=== PATIENT | female | born 1935 | race Caucasian/White ===

== ENCOUNTER 2019-08-01 15:19 | Inpatient (IN) | payer MEDICARE, OTHER ==
[2019-08-01] MEDS ORDERED: SODIUM CHLORIDE 0.9% 1,000 ML IV STA (15:37)
[2019-08-01] MEDS ORDERED: IPRATROPIUM-ALBUTEROL 3 ML NEB INHALATION STA (15:37)
[2019-08-01] MEDS ORDERED: methylPREDNISolone SOD SUCCI 125 MG/2 ML VIAL IV STA (15:37)
[2019-08-01] MEDS ORDERED: LEVOFLOXACIN 750MG-D5W PMX 750 MG in DEXTROSE/WATER 1 150ML.BAG IVPB STA ×2 (15:39→16:53)
--- NOTE | 2019-08-01 15:41 | ED ---
SOB HPI - General Chief Complaint: Shortness of Breath Stated Complaint: MICHAEL Time Seen by Provider: 08/01/19 15:19 Source: EMS, RN notes reviewed, old records reviewed Mode of arrival: EMS Limitations: no limitations - History of Present Illness Initial Comments: Is a 9-year-old female who presents from a detention with complaints of shortness of breath hypoxemia and fever. Is unknown how long this is been going on she was found by EMS to be hypoxemic lying in bed in the detention that she presented from. No other history is available at this time. Patient herself is a poor historian MD Complaint: shortness of breath, cough - Related Data Allergies Allergy/AdvReac Type Severity Reaction Status Date / Time amoxicillin Allergy Unknown Verified 08/01/19 15:28 niacin Allergy Unknown Verified 08/01/19 15:28 [From Niaspan Extended-Release] Penicillins Allergy Unknown Verified 08/01/19 15:28 Review of Systems ROS Statement: Those systems with pertinent positive or pertinent negative responses have been documented in the HPI. ROS Other: All systems not noted in ROS Statement are negative. Limitations: ROS unobtainable due to patients medical condition Past Medical History Past Medical History: COPD, Diabetes Mellitus, GERD/Reflux, Hyperlipidemia Additional Past Medical History / Comment(s): adult failure to thrive, dry eye History of Any Multi-Drug Resistant Organisms: None Reported Past Surgical History: No Surgical Hx Reported Past Psychological History: Anxiety, Depression Smoking Status: Former smoker Past Alcohol Use History: None Reported Past Drug Use History: None Reported General Exam - General Exam Comments Initial Comments: This is a well-developed well-nourished awake lethargic female Limitations: no limitations General appearance: alert, lethargic Head exam: Present: atraumatic, normocephalic, normal inspection Eye exam: Present: normal appearance, PERRL, EOMI. Absent: scleral icterus, conjunctival injection, periorbital swelling ENT exam: Present: mucous membranes dry Neck exam: Present: normal inspection, full ROM, other (No stridor JVD or bruits). Absent: tenderness, meningismus, lymphadenopathy Respiratory exam: Present: rhonchi (Right lower lobe rhonchi), decreased breath sounds. Absent: respiratory distress, wheezes, rales, stridor Cardiovascular Exam: Present: regular rate, normal rhythm, normal heart sounds. Absent: systolic murmur, diastolic murmur, rubs, gallop, clicks GI/Abdominal exam: Present: soft, normal bowel sounds. Absent: distended, tenderness, guarding, rebound, rigid Extremities exam: Present: normal inspection, full ROM, normal capillary refill. Absent: tenderness, pedal edema, joint swelling, calf tenderness Back exam: Present: normal inspection Neurological exam: Present: alert, oriented X3, CN II-XII intact Psychiatric exam: Present: normal affect, normal mood Skin exam: Present: warm, dry, intact, normal color. Absent: rash Course Vital Signs 08/01/19 08/01/19 08/01/19 15:22 15:27 16:02 Temperature 101.8 F H Pulse Rate 81 90 Respiratory 22 22 Rate Blood Pressure 126/98 O2 Sat by Pulse 99 Oximetry 08/01/19 08/01/19 16:11 16:26 Temperature 100.8 F H Pulse Rate 84 88 Respiratory 22 Rate Blood Pressure 130/70 O2 Sat by Pulse 92 L Oximetry Medical Decision Making - Medical Decision Making Patient does demonstrate clinical and subjective evidence of pneumonia. Patient will be admitted case was discussed with Dr. Chambers - Lab Data Result diagrams: 08/01/19 15:35 Lab Results 08/01/19 08/01/19 08/01/19 Range/Units 15:35 15:35 15:35 Sodium 133 L (137-145) mmol/L Potassium 4.8 (3.5-5.1) mmol/L Chloride 100 (98-107) mmol/L Carbon Dioxide 23 (22-30) mmol/L Anion Gap 10 mmol/L BUN 25 H (7-17) mg/dL Creatinine 0.46 L (0.52-1.04) mg/dL Est GFR (CKD-EPI)AfAm >90 (>60 ml/min/1.73 sqM) Est GFR (CKD-EPI)NonAf >90 (>60 ml/min/1.73 sqM) Glucose 116 H (74-99) mg/dL Plasma Lactic Acid Gurpreet 1.5 (0.7-2.0) mmol/L Calcium 9.1 (8.4-10.2) mg/dL Magnesium 1.9 (1.6-2.3) mg/dL Total Bilirubin 0.8 (0.2-1.3) mg/dL AST 35 (14-36) U/L ALT 17 (9-52) U/L Alkaline Phosphatase 85 (38-126) U/L Creatine Kinase 41 (30-135) U/L Troponin I (0.000-0.034) ng/mL NT-Pro-B Natriuret Pep 503 pg/mL Total Protein 6.6 (6.3-8.2) g/dL Albumin 3.8 (3.5-5.0) g/dL 08/01/19 Range/Units 15:35 Sodium (137-145) mmol/L Potassium (3.5-5.1) mmol/L Chloride (98-107) mmol/L Carbon Dioxide (22-30) mmol/L Anion Gap mmol/L BUN (7-17) mg/dL Creatinine (0.52-1.04) mg/dL Est GFR (CKD-EPI)AfAm (>60 ml/min/1.73 sqM) Est GFR (CKD-EPI)NonAf (>60 ml/min/1.73 sqM) Glucose (74-99) mg/dL Plasma Lactic Acid Gurpreet (0.7-2.0) mmol/L Calcium (8.4-10.2) mg/dL Magnesium (1.6-2.3) mg/dL Total Bilirubin (0.2-1.3) mg/dL AST (14-36) U/L ALT (9-52) U/L Alkaline Phosphatase (38-126) U/L Creatine Kinase (30-135) U/L Troponin I <0.012 (0.000-0.034) ng/mL NT-Pro-B Natriuret Pep pg/mL Total Protein (6.3-8.2) g/dL Albumin (3.5-5.0) g/dL - EKG Data -: EKG Interpreted by Co EKG shows normal: sinus rhythm (Sinus rhythm of 83 SD interval 162 QRS duration 68 QT since QTC 376/[address] T-wave configuration) - Radiology Data Radiology results: report reviewed (The patient x-rays were reviewed as well as reports right lower lobe infiltrate is noted.), image reviewed Disposition Clinical Impression: Right lower lobe pneumonia, Acute exacerbation of chronic obstructive pulmonary disease, Febrile illness, acute, Dehydration, Hypoxemia Disposition: ADMITTED IP TO THIS [facility] Condition: Serious Referrals: Gregorio Bhatia DO [Primary Care Provider] - 1-2 days
[2019-08-01 16:09] LABS: ALT 17 U/L (9-52); AST 35 U/L (14-36); African American GFR (CKD) >90 (>60 ml/min/1.73 sqM); Albumin 3.8 g/dL (3.5-5.0); Alkaline Phosphatase 85 U/L (38-126); Anion Gap 10 mmol/L; Blood Urea Nitrogen 25 mg/dL (7-17); Calcium 9.1 mg/dL (8.4-10.2); Carbon Dioxide 23 mmol/L (22-30); Chloride 100 mmol/L (98-107); Creatine Kinase 41 U/L (30-135); Glucose 116 mg/dL (74-99); Magnesium 1.9 mg/dL (1.6-2.3); Potassium 4.8 mmol/L (3.5-5.1); Sodium 133 mmol/L (137-145); Total Bilirubin 0.8 mg/dL (0.2-1.3); Total Protein 6.6 g/dL (6.3-8.2)
[2019-08-01] MEDS ORDERED: SODIUM CHLORIDE 0.9% 500 ML 500 ML IV STA (16:20)
--- NOTE | 2019-08-01 16:41 | XR ---
EXAMINATION TYPE: XR chest 2V DATE OF EXAM: 08/01/2019 COMPARISON: NONE HISTORY: Difficulty breathing TECHNIQUE: Frontal and lateral views of the chest are obtained. FINDINGS: There is a irregular shaped area of airspace consolidation in the superior segment right l ower lobe. There is also a mild infiltrate in the lateral and anterior aspect of the right upper lobe . There is no heart failure. There is no pleural effusion. There are no hilar masses. There are calci fied granulomata at the pulmonary amanda. There are chest leads. There is no definite pleural effusion. IMPRESSION: There is right side pneumonia. No heart failure seen.
[2019-08-01] MEDS ORDERED: PNEUMONIA PROTOCOL UTILIZED 1 EACH MISC PO PRN (16:53)
[2019-08-01 16:55] LABS: Anisocytosis Slight; Basophils # (A) 0.1 k/uL (0-0.2); Basophils % (A) 0 %; Eosinophils # (A) 0.2 k/uL (0-0.7); Eosinophils % (A) 2 %; HCT 36.3 % (34.0-46.0); HGB 11.8 gm/dL (11.4-16.0); Lymphocytes # (A) 2.2 k/uL (1.0-4.8); Lymphocytes % (A) 15 %; MCH 29.5 pg (25.0-35.0); MCHC 32.4 g/dL (31.0-37.0); Mean Platelet Volume 7.6; Monocytes # (A) 0.6 k/uL (0-1.0); Monocytes % (A) 4 %; Neutrophils # (A) 10.9 k/uL (1.3-7.7); Neutrophils % (A) 77 %; Platelet Count 258 k/uL (150-450); RDW 16.2 % (11.5-15.5); WBC 14.2 k/uL (3.8-10.6)
[2019-08-01 17:00] LABS: INR 0.9 (<1.2); Partial Thromboplastin Time 26.6 sec (22.0-30.0)
[2019-08-01] MEDS: SODIUM CHLORIDE 0.9% 1,000 ML IV SCH (18:35)
[2019-08-01] MEDS: INSULIN ASPART (NovoLOG) 100 UNIT/ML VIAL SQ SCH ×2 (18:35→20:53)
[2019-08-01 20:43] LABS: Glucose,Whole Blood 178 mg/dL (75-99)
[2019-08-01] MEDS: IPRATROPIUM-ALBUTEROL 3 ML NEB INHALATION SCH ×2 (21:25→23:56)
[2019-08-01] MEDS ORDERED: LOPERAMIDE 2 MG CAP PO PRN (23:40)
--- NOTE | 2019-08-01 23:54 | P.HPIM ---
History of Present Illness H&P Date: 08/01/19 Chief Complaint: Fever Patient is a 83-year-old female with a known history of with a known history of dementia, adult failure to thrive, diabetes type 2 [id number], hyperlipidemia, COPD, anxiety/depression and previous history of smoking was brought to the hospital from extended care facility with complaints of shortness of breath, fever and tachycardia and hypoxia. . Patient does have underlying dementia and could not provide any history at this time. Patient was found by EMS lying in bed at assisted. No cough or sputum production. Denied any abdominal pain. No nausea no vomiting. Patient does have chronic diarrhea otherwise. As per assisted records patient was admitted to the [facility] in November 2018 with sepsis secondary to UTI and pneumonia left side. T-max 101.8. patient was on 100% nontender with her on admission. EKG showed sinus rhythm with PACs. Chest x-ray showed right-sided pneumonia. No heart failure does seem. Review of Systems Review of systems could not be obtained from the patient. Past Medical History Past Medical History: COPD, Diabetes Mellitus, GERD/Reflux, Hyperlipidemia Additional Past Medical History / Comment(s): adult failure to thrive, dry eye History of Any Multi-Drug Resistant Organisms: None Reported Past Surgical History: No Surgical Hx Reported Past Anesthesia/Blood Transfusion Reactions: No Reported Reaction Past Psychological History: Anxiety, Depression Smoking Status: Former smoker Past Alcohol Use History: None Reported Past Drug Use History: None Reported - Past Family History Mother History Unknown: Yes Father History Unknown: Yes Medications and Allergies Home Medications Medication Instructions Recorded Confirmed Type Alendronate Sodium [Fosamax] 70 mg PO TU 08/01/19 08/01/19 History Aspirin EC [Ecotrin Low Dose] 81 mg PO DAILY 08/01/19 08/01/19 History Azelastine HCl [Optivar 0.05% 1 drop BOTH EYES BID 08/01/19 08/01/19 History Ophth Soln] Calcium Carbonate/Vitamin D3 1 tab PO HS 08/01/19 08/01/19 History [Calcium 600-Vit D3 200 Tablet] DULoxetine HCL [Cymbalta] 60 mg PO DAILY 08/01/19 08/01/19 History Gabapentin [Neurontin] 100 mg PO BID 08/01/19 08/01/19 History Gabapentin [Neurontin] 600 mg PO BID 08/01/19 08/01/19 History HYDROcodone/APAP 5-325MG [[place] 1 tab PO Q8H PRN 08/01/19 08/01/19 History 5-325] Linagliptin/Metformin HCl 1 tab PO BID 08/01/19 08/01/19 History [Jentadueto 2.5 mg-1000 mg Tab] Loperamide [Imodium] 8 mg PO DAILY 08/01/19 08/01/19 History Magnesium Oxide [Mag-Ox] 400 mg PO BID 08/01/19 08/01/19 History Metoprolol Succinate [Toprol XL] 25 mg PO HS 08/01/19 08/01/19 History Omeprazole 20 mg PO DAILY 08/01/19 08/01/19 History PARoxetine HCL [Paxil] 40 mg PO DAILY 08/01/19 08/01/19 History Pravastatin Sodium [Pravachol] 40 mg PO HS 08/01/19 08/01/19 History Primidone [Mysoline] 100 mg PO HS 08/01/19 08/01/19 History Tiotropium [place] [Spiriva] 1 cap INHALATION RT-HS 08/01/19 08/01/19 History guaiFENesin [Mucinex] 600 mg PO Q12H 08/01/19 08/01/19 History Allergies Allergy/AdvReac Type Severity Reaction Status Date / Time amoxicillin Allergy Unknown Verified 08/01/19 17:00 niacin Allergy Unknown Verified 08/01/19 17:00 [From Niaspan Extended-Release] Penicillins Allergy Unknown Verified 08/01/19 17:00 Physical Exam Vitals: Vital Signs Temp Pulse Pulse Resp BP BP Pulse Ox 08/01/19 21:22 91 L 08/01/19 18:35 99.3 F 90 18 114/69 90 L 08/01/19 17:55 99.1 F 88 22 123/78 91 L 08/01/19 16:26 100.8 F H 88 22 130/70 92 L 08/01/19 16:11 84 08/01/19 16:02 90 08/01/19 15:27 22 08/01/19 15:22 101.8 F H 81 22 126/98 99 Intake and Output 08/01/19 08/01/19 08/01/19 06:59 14:59 22:59 Other: Voiding Method Incontinent Weight 54.431 kg PHYSICAL EXAMINATION: Patient is lying in the bed comfortably, no acute distress, awake alert but not oriented HEENT: Normocephalic. Neck is supple. Pupils reactive. Nostrils clear. Oral cavity is moist. Ears reveal no drainage. Neck reveals no JVD, carotid bruits, or thyromegaly. CHEST EXAMINATION: Trachea is central. Symmetrical expansion. Right basilar crackles/rhonchi and diminished air entry throughout. CARDIAC: Normal S1, S2 with no gallops. No murmurs ABDOMEN: Soft. Bowel sounds normal. No organomegaly. No abdominal bruits. Extremities: reveal no edema. No clubbing or cyanosis Neurologically awake, alert but not oriented. with well-coordinated movements. No focal deficits noted Skin: No rash or skin lesions. Psychiatric: Coperative. Not be assessed completely Musculoskeletal: No joint swelling or deformity. Normal range of motion. Results CBC & Chem 7: 08/01/19 16:40 08/01/19 15:35 Labs: Abnormal Lab Results - Last 24 Hours (Table) 08/01/19 08/01/19 08/01/19 Range/Units 15:35 16:40 20:30 WBC 14.2 H (3.8-10.6) k/uL RDW 16.2 H (11.5-15.5) % Neutrophils # 10.9 H (1.3-7.7) k/uL Sodium 133 L (137-145) mmol/L BUN 25 H (7-17) mg/dL Creatinine 0.46 L (0.52-1.04) mg/dL Glucose 116 H (74-99) mg/dL POC Glucose (mg/dL) 178 H (75-99) mg/dL Thrombosis Risk Factor Assmnt - DVT/VTE Prophylaxis DVT/VTE Prophylaxis: Pharmacologic Prophylaxis ordered - Choose All That Apply Any of the Below Risk Factors Present?: Yes Each Factor Represents 1 point: Abnormal pulmonary function (COPD) Each Risk Factor Represents 3 Points: Age 75 years or older Thrombosis Risk Factor Assessment Total Risk Factor Score: 4 Thrombosis Risk Factor Assessment Level: Moderate Risk Assessment and Plan Assessment: Sepsis secondary to right lower lobe pneumonia. Patient was febrile tachycardic and hypoxic on admission Acute COPD exacerbation. Acute hypoxic respiratory failure secondary to pneumonia and COPD Dementia and failure to thrive GERD Hyperlipidemia Diabetes type 2 nausea and dependent Previous history of smoking Anxiety/depression Chronic diarrhea DVT prophylaxis Plan: Patient will be continued on IV hydration with normal saline. Antibiotics in the form of Levaquin. Continue with breathing treatments and IV steroids. Insulin sliding scale. Continue to follow closely. Further recommendations based on clinical course. Prognosis is guarded with multiple medical problems and comorbid conditions. Time with Patient: Greater than 30
[2019-08-02] MEDS ORDERED: methylPREDNISolone SOD SUCCI 125 MG/2 ML VIAL IV SCH
[2019-08-02] MEDS: methylPREDNISolone SOD SUCCI 125 MG/2 ML VIAL IV SCH ×3 (01:12→17:00)
[2019-08-02] MEDS: HEPARIN SODIUM,PORCINE 5,000 UNIT/ML 1 ML VIAL SQ SCH ×3 (01:12→17:01)
[2019-08-02] MEDS: SODIUM CHLORIDE 0.9% 1,000 ML IV SCH ×2 (01:12→16:02)
[2019-08-02] MEDS: IPRATROPIUM-ALBUTEROL 3 ML NEB INHALATION SCH ×6 (03:59→23:26)
[2019-08-02 06:56] LABS: Anisocytosis Slight; Basophils % (A) 0 %; Eosinophils % (A) 0 %; HCT 34.7 % (34.0-46.0); HGB 11.5 gm/dL (11.4-16.0); Lymphocytes # (A) 0.7 k/uL (1.0-4.8); Lymphocytes % (A) 7 %; MCH 30.1 pg (25.0-35.0); MCHC 33.1 g/dL (31.0-37.0); MCV 90.9 fL (80.0-100.0); Mean Platelet Volume 7.7; Monocytes # (A) 0.2 k/uL (0-1.0); Monocytes % (A) 2 %; Neutrophils # (A) 9.5 k/uL (1.3-7.7); Neutrophils % (A) 90 %; Platelet Count 272 k/uL (150-450); RBC 3.82 m/uL (3.80-5.40); RDW 16.8 % (11.5-15.5); WBC 10.5 k/uL (3.8-10.6)
[2019-08-02 07:12] LABS: African American GFR (CKD) >90 (>60 ml/min/1.73 sqM); Anion Gap 11 mmol/L; Blood Urea Nitrogen 15 mg/dL (7-17); Calcium 9.1 mg/dL (8.4-10.2); Carbon Dioxide 23 mmol/L (22-30); Chloride 104 mmol/L (98-107); Glucose 172 mg/dL (74-99); Sodium 138 mmol/L (137-145)
[2019-08-02 07:18] LABS: Glucose,Whole Blood 171 mg/dL (75-99)
[2019-08-02] MEDS: INSULIN ASPART (NovoLOG) 100 UNIT/ML VIAL SQ SCH ×4 (07:25→20:24)
[2019-08-02] MEDS: GABAPENTIN 300 MG CAP PO SCH ×2 (07:25→20:24)
[2019-08-02] MEDS: MAGNESIUM OXIDE 400 MG TAB PO SCH ×2 (07:25→20:24)
[2019-08-02] MEDS: PANTOPRAZOLE 40 MG TABLET PO SCH (07:25)
[2019-08-02] MEDS: PARoxetine 20 MG TAB PO SCH (07:25)
[2019-08-02] MEDS: ASPIRIN 81 MG PO SCH (07:25)
[2019-08-02] MEDS: DULoxetine HCL 60 MG CAPSULE.DR PO SCH (07:26)
[2019-08-02] MEDS: KETOTIFEN 0.025% OPHTH DROPS 5 ML BTL BOTH EYES SCH ×2 (07:26→20:24)
[2019-08-02] MEDS: OSELTAMIVIR 75 MG CAP PO SCH ×2 (12:10→20:25)
[2019-08-02 12:12] LABS: Glucose,Whole Blood 222 mg/dL (75-99)
[2019-08-02] MEDS ORDERED: LEVOFLOXACIN 750MG-D5W PMX 750 MG in DEXTROSE/WATER 1 150ML.BAG IVPB SCH (17:00)
[2019-08-02 17:20] LABS: Glucose,Whole Blood 233 mg/dL (75-99)
[2019-08-02] MEDS: METOPROLOL SUCCINATE (ER) 25 MG TAB.ER.24H PO SCH (20:24)
[2019-08-02] MEDS: PRIMIDONE 50 MG TAB PO SCH (20:24)
[2019-08-02] MEDS: CALCIUM CARB-VIT D 500MG-200UN 1 EACH TAB PO SCH (20:24)
[2019-08-02] MEDS: PRAVASTATIN SODIUM 40 MG TAB PO SCH (20:25)
[2019-08-02 20:30] LABS: Glucose,Whole Blood 258 mg/dL (75-99)
--- NOTE | 2019-08-02 23:11 | P.PN ---
Subjective Progress Note Date: 08/02/19 Principal diagnosis: Acute right lower lobe pneumonia Acute influenza B infection Patient is a 83-year-old female with a known history of with a known history of dementia, adult failure to thrive, diabetes type 2 [id number], hyperlipidemia, COPD, anxiety/depression and previous history of smoking was brought to the hospital from extended care facility with complaints of shortness of breath, fever and tachycardia and hypoxia. . Patient does have underlying dementia and could not provide any history at this time. Patient was found by EMS lying in bed at intermediate. No cough or sputum production. Denied any abdominal pain. No nausea no vomiting. Patient does have chronic diarrhea otherwise. As per intermediate records patient was admitted to the [facility] in November 2018 with sepsis secondary to UTI and pneumonia left side. T-max 101.8. patient was on 100% nontender with her on admission. EKG showed sinus rhythm with PACs. Chest x-ray showed right-sided pneumonia. No heart failure does seem. 08/02/2019 Patient is more awake and oriented today. Patient is tested positive for influenza B. Started on Tamiflu. Continue with antibiotics for right lower lobe pneumonia and follow final culture reports. Leukocytosis improved. WBC count decreased from 14.4-10.2 Continued on IV steroids due to COPD Patient was encouraged with increase oral intake and symptomatic management. PTOT consulted possible rehab transfer. Patient has been afebrile. No complaints of chest pain or worsening shortness of breath. No nausea vomiting or diarrhea. Current medications reviewed. Objective - Vital Signs Vital signs: Vital Signs Temp 97.5 F L 08/02/19 07:00 Pulse 86 08/02/19 10:59 Resp 18 08/02/19 07:00 BP 130/78 08/02/19 07:00 Pulse Ox 93 L 08/02/19 07:13 Intake & Output 08/01/19 08/02/19 08/02/19 18:59 06:59 18:59 Intake Total 1041 Balance 1041 Weight 54.431 kg Intake: Intake, IV Titration 1041 Amount Sodium Chloride 0.9% 1, 600 000 ml @ 100 mls/hr IV . Q10H STA Rx#:[id number] Sodium Chloride 0.9% 1, 441 000 ml @ 80 mls/hr IV . [id number] KRISTIE Rx#:[id number] Other: Voiding Method Incontinent Incontinent # Voids 4 4 - Exam PHYSICAL EXAMINATION: Patient is lying in the bed comfortably, no acute distress, awake alert and oriented.. HEENT: Normocephalic. Neck is supple. Pupils reactive. Nostrils clear. Oral cavity is moist. Ears reveal no drainage. Neck reveals no JVD, carotid bruits, or thyromegaly. CHEST EXAMINATION: Trachea is central. Symmetrical expansion. Right basilar scattered rhonchi Lung gonzalez clear to auscultation and percussion. CARDIAC: Normal S1, S2 with no gallops. No murmurs ABDOMEN: Soft. Bowel sounds normal. No organomegaly. No abdominal bruits. Extremities: reveal no edema. No clubbing or cyanosis Neurologically awake, alert, oriented x2-3 with well-coordinated movements. No focal deficits noted Skin: No rash or skin lesions. Psychiatric: Coperative. Nonsuicidal Musculoskeletal: No joint swelling or deformity. Normal range of motion. - Labs CBC & Chem 7: 08/02/19 06:08 08/02/19 06:08 Labs: Abnormal Lab Results - Last 24 Hours (Table) 08/01/19 08/01/19 08/01/19 Range/Units 15:35 16:40 20:30 WBC 14.2 H (3.8-10.6) k/uL RDW 16.2 H (11.5-15.5) % Neutrophils # 10.9 H (1.3-7.7) k/uL Lymphocytes # (1.0-4.8) k/uL Sodium 133 L (137-145) mmol/L BUN 25 H (7-17) mg/dL Creatinine 0.46 L (0.52-1.04) mg/dL Glucose 116 H (74-99) mg/dL POC Glucose (mg/dL) 178 H (75-99) mg/dL Influenza Type B (PCR) (Not Detectd) 08/02/19 08/02/19 08/02/19 Range/Units 06:08 06:08 07:07 WBC (3.8-10.6) k/uL RDW 16.8 H (11.5-15.5) % Neutrophils # 9.5 H (1.3-7.7) k/uL Lymphocytes # 0.7 L (1.0-4.8) k/uL Sodium (137-145) mmol/L BUN (7-17) mg/dL Creatinine 0.33 L (0.52-1.04) mg/dL Glucose 172 H (74-99) mg/dL POC Glucose (mg/dL) 171 H (75-99) mg/dL Influenza Type B (PCR) (Not Detectd) 08/02/19 Range/Units 09:52 WBC (3.8-10.6) k/uL RDW (11.5-15.5) % Neutrophils # (1.3-7.7) k/uL Lymphocytes # (1.0-4.8) k/uL Sodium (137-145) mmol/L BUN (7-17) mg/dL Creatinine (0.52-1.04) mg/dL Glucose (74-99) mg/dL POC Glucose (mg/dL) (75-99) mg/dL Influenza Type B (PCR) Detected H (Not Detectd) Assessment and Plan Assessment: Acute influenza be infection Sepsis secondary to right lower lobe pneumonia. Patient was febrile tachycardic and hypoxic on admission Acute COPD exacerbation. Acute hypoxic respiratory failure secondary to pneumonia and COPD Dementia and failure to thrive GERD Hyperlipidemia Diabetes type 2 nausea and dependent Previous history of smoking Anxiety/depression Chronic diarrhea DVT prophylaxis Plan: Patient will be continued on IV hydration with normal saline. Antibiotics in the form of Levaquin. Added Tamiflu. Continue with breathing treatments and IV steroids. IV steroids will be changed to by mouth tomorrow. Insulin sliding scale. Continue to follow closely. Further recommendations based on clinical course. Prognosis is guarded with multiple medical problems and comorbid conditions. Time with Patient: Greater than 30
[2019-08-03] MEDS: methylPREDNISolone SOD SUCCI 125 MG/2 ML VIAL IV SCH ×2 (00:04→10:05)
[2019-08-03] MEDS: HEPARIN SODIUM,PORCINE 5,000 UNIT/ML 1 ML VIAL SQ SCH ×3 (00:04→18:10)
[2019-08-03] MEDS: IPRATROPIUM-ALBUTEROL 3 ML NEB INHALATION SCH ×6 (02:54→20:03)
[2019-08-03] MEDS: SODIUM CHLORIDE 0.9% 1,000 ML IV SCH ×2 (03:24→16:47)
[2019-08-03 07:40] LABS: Glucose,Whole Blood 248 mg/dL (75-99)
[2019-08-03] MEDS: INSULIN ASPART (NovoLOG) 100 UNIT/ML VIAL SQ SCH ×4 (08:07→20:53)
[2019-08-03] MEDS: ASPIRIN 81 MG PO SCH (10:04)
[2019-08-03] MEDS: PARoxetine 20 MG TAB PO SCH (10:07)
[2019-08-03] MEDS: GABAPENTIN 300 MG CAP PO SCH ×2 (10:07→20:52)
[2019-08-03] MEDS: MAGNESIUM OXIDE 400 MG TAB PO SCH ×2 (10:08→20:53)
[2019-08-03] MEDS: KETOTIFEN 0.025% OPHTH DROPS 5 ML BTL BOTH EYES SCH ×2 (10:08→20:52)
[2019-08-03] MEDS: PANTOPRAZOLE 40 MG TABLET PO SCH (10:08)
[2019-08-03] MEDS: OSELTAMIVIR 75 MG CAP PO SCH ×2 (10:08→20:53)
[2019-08-03] MEDS: DULoxetine HCL 60 MG CAPSULE.DR PO SCH (10:09)
[2019-08-03 12:20] LABS: Glucose,Whole Blood 185 mg/dL (75-99)
[2019-08-03] MEDS: predniSONE 10 MG TAB PO SCH (16:46)
[2019-08-03 17:08] LABS: Glucose,Whole Blood 201 mg/dL (75-99)
[2019-08-03] MEDS: LEVOFLOXACIN 750 MG TAB PO SCH (18:10)
[2019-08-03 20:39] LABS: Glucose,Whole Blood 229 mg/dL (75-99)
[2019-08-03] MEDS: guaiFENesin 600 MG TABLET.ER PO SCH (20:52)
[2019-08-03] MEDS: PRIMIDONE 50 MG TAB PO SCH (20:52)
[2019-08-03] MEDS: CALCIUM CARB-VIT D 500MG-200UN 1 EACH TAB PO SCH (20:52)
[2019-08-03] MEDS: PRAVASTATIN SODIUM 40 MG TAB PO SCH (20:52)
[2019-08-03] MEDS: METOPROLOL SUCCINATE (ER) 25 MG TAB.ER.24H PO SCH (20:53)
[2019-08-04] MEDS: HEPARIN SODIUM,PORCINE 5,000 UNIT/ML 1 ML VIAL SQ SCH ×2 (00:08→08:26)
[2019-08-04] MEDS: IPRATROPIUM-ALBUTEROL 3 ML NEB INHALATION SCH ×6 (01:27→20:27)
[2019-08-04] MEDS: SODIUM CHLORIDE 0.9% 1,000 ML IV SCH ×2 (06:16→22:32)
[2019-08-04 07:47] LABS: Glucose,Whole Blood 189 mg/dL (75-99)
[2019-08-04 08:21] LABS: Anisocytosis Slight; Basophils # (A) 0.1 k/uL (0-0.2); Basophils % (A) 1 %; Eosinophils % (A) 0 %; HCT 31.1 % (34.0-46.0); HGB 10.1 gm/dL (11.4-16.0); Lymphocytes % (A) 7 %; MCH 29.5 pg (25.0-35.0); MCHC 32.4 g/dL (31.0-37.0); Mean Platelet Volume 7.4; Monocytes # (A) 0.8 k/uL (0-1.0); Monocytes % (A) 5 %; Neutrophils # (A) 13.7 k/uL (1.3-7.7); Neutrophils % (A) 87 %; Platelet Count 321 k/uL (150-450); RBC 3.41 m/uL (3.80-5.40); RDW 16.6 % (11.5-15.5); WBC 15.8 k/uL (3.8-10.6)
[2019-08-04 08:26] LABS: African American GFR (CKD) >90 (>60 ml/min/1.73 sqM); Anion Gap 8 mmol/L; Blood Urea Nitrogen 11 mg/dL (7-17); Calcium 8.7 mg/dL (8.4-10.2); Carbon Dioxide 23 mmol/L (22-30); Chloride 108 mmol/L (98-107); Glucose 188 mg/dL (74-99); Potassium 3.3 mmol/L (3.5-5.1); Sodium 139 mmol/L (137-145)
[2019-08-04] MEDS: DULoxetine HCL 60 MG CAPSULE.DR PO SCH (08:26)
[2019-08-04] MEDS: PARoxetine 20 MG TAB PO SCH (08:26)
[2019-08-04] MEDS: predniSONE 10 MG TAB PO SCH (08:26)
[2019-08-04] MEDS: GABAPENTIN 300 MG CAP PO SCH ×2 (08:26→20:12)
[2019-08-04] MEDS: OSELTAMIVIR 75 MG CAP PO SCH ×2 (08:26→20:12)
[2019-08-04] MEDS: INSULIN ASPART (NovoLOG) 100 UNIT/ML VIAL SQ SCH ×4 (08:26→21:38)
[2019-08-04] MEDS: ASPIRIN 81 MG PO SCH (08:27)
[2019-08-04] MEDS: guaiFENesin 600 MG TABLET.ER PO SCH ×2 (08:27→20:10)
[2019-08-04] MEDS: MAGNESIUM OXIDE 400 MG TAB PO SCH ×2 (08:27→20:10)
[2019-08-04] MEDS: PANTOPRAZOLE 40 MG TABLET PO SCH (08:27)
[2019-08-04] MEDS: KETOTIFEN 0.025% OPHTH DROPS 5 ML BTL BOTH EYES SCH ×2 (08:27→20:13)
[2019-08-04] MEDS ORDERED: FAMOTIDINE 20 MG TAB PO SCH (09:00)
[2019-08-04] MEDS ORDERED: METOPROLOL SUCCINATE (ER) 25 MG TAB.ER.24H PO STA (09:36)
[2019-08-04] MEDS: APIXABAN 2.5 MG TABLET PO SCH ×2 (09:49→20:10)
[2019-08-04 11:18] LABS: Magnesium 1.9 mg/dL (1.6-2.3)
--- NOTE | 2019-08-04 11:20 | P.CRDCN ---
History of Present Illness History of present illness: This is a pleasant 83-year-old female past medical history significant for COPD, diabetes mellitus, GERD and dyslipidemia. 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 We have been asked to see her for new onset atrial fibrillation. She is currently being treated for influenza B and pneumonia. She is seen and examined laying flat in bed in no acute distress. She is coughing and feels mildly short of breath at times. She denies chest pain, palpitations, dizziness, nausea, vomiting or diaphoresis. She denies prior history of atrial fibrillation. EKG obtained on admission revealed sinus mechanism and repeat today showed atrial fibrillation. Blood pressure 132/74 heart rate 68 afeibrile and maintaining oxygen saturation on nasal ca nnula. Currently maintained on aspirin 81 mg daily, Toprol 25 mg daily and pravastatin 40 mg at bedtime. Chest x-ray reveals right-sided pneumonia, no overt heart failure noted. Laboratory data reviewed, WBC 15.8, hemoglobin 10.1, platelets 321, sodium 139, potassium 3.3, creatinine 0.41, magnesium on admission 1.9, cardiac enzyme on admission negative and anti-proBNP 503. At the time of my exam: CONSTITUTIONAL: Denies fever. Denies chills. EYES: Denies blurred vision. Denies vision changes. Denies eye pain. EARS, NOSE, MOUTH & THROAT: Denies headache. Denies sore throat. Denies ear pain. CARDIOVASCULAR: Denies chest pain. Denies shortness of breath. Denies orthopnea. Denies PND. Denies palpitations. RESPIRATORY: Denies cough. GASTROINTESTINAL: Denies abdominal pain. Denies diarrhea. Denies constipation. Denies nausea. Denies vomiting. MUSCULOSKELETAL: Denies myalgias. INTEGUMENTARY: Denies pruitis. Denies rash. NEUROLOGIC: Denies numbness. Denies tingling. Denies weakness. PSYCHIATRIC: Denies anxiety. Denies depression. ENDOCRINE: Denies fatigue. Denies weight change. Denies polydipsia. Denies polyurina. GENITOURINARY: Denies burning, hematuria or urgency with micturation. HEMATOLOGIC: Denies history of anemia. Denies bleeding. GENERAL: This is a 83-year-old female in no apparent distress at the time of my examination. HEENT: Head is atraumatic, normocephalic. Pupils are equal, round. Sclerae anicteric. Conjunctivae are clear. Mucous membranes of the mouth are moist. Neck is supple. There is no jugular venous distention. No carotid bruit is heard. LUNGS: Course rhonchi, no wheezes or rales. No chest wall tenderness is noted on palpation or with deep breathing. HEART: Irregular rate and rhythm with systolic ejection murmur at the left sternal border, no rubs or gallops. S1 and S2 heard. ABDOMEN: Soft, nontender. Bowel sounds are heard. No organomegaly noted. EXTREMITIES: No evidence of peripheral edema and no calf tenderness noted. VASCULAR: Radial and dorsalis pedis pulses palpated, no evidence of clubbing. NEUROLOGIC: Patient is awake, alert and oriented to self and situation. ASSESSMENT New onset paroxysmal atrial fibrillation with variable rates Influenza B Hypokalemia Pneumonia COPD Hypertension Dyslipidemia PLAN Increase toprol to 50 mg daily, give additional dose of 25 mg now. Obtain 2D echocardiogram and doppler study to assess cardiac structure and function. Initiate on Eliquis 2.5 mg BID for thromboembolic protection. Check TSH and magnesium level. Repeat EKG should she convert to sinus mechanism. Continue telemetry monitoring. We will continue to follow and make recommendations accordingly. Thank you kindly for this consultation. Nurse Practitioner note has been reviewed, I agree with a documented findings and plan of care. Patient was seen and examined. 0 Past Medical History Past Medical History: COPD, Diabetes Mellitus, GERD/Reflux, Hyperlipidemia Additional Past Medical History / Comment(s): adult failure to thrive, dry eye History of Any Multi-Drug Resistant Organisms: None Reported Past Surgical History: No Surgical Hx Reported Past Anesthesia/Blood Transfusion Reactions: No Reported Reaction Past Psychological History: Anxiety, Depression Smoking Status: Former smoker Past Alcohol Use History: None Reported Past Drug Use History: None Reported - Past Family History Mother History Unknown: Yes Father History Unknown: Yes Medications and Allergies Home Medications Medication Instructions Recorded Confirmed Type Alendronate Sodium [Fosamax] 70 mg PO TU 08/01/19 08/01/19 History Aspirin EC [Ecotrin Low Dose] 81 mg PO DAILY 08/01/19 08/01/19 History Azelastine HCl [Optivar 0.05% 1 drop BOTH EYES BID 08/01/19 08/01/19 History Ophth Soln] Calcium Carbonate/Vitamin D3 1 tab PO HS 08/01/19 08/01/19 History [Calcium 600-Vit D3 200 Tablet] DULoxetine HCL [Cymbalta] 60 mg PO DAILY 08/01/19 08/01/19 History Gabapentin [Neurontin] 100 mg PO BID 08/01/19 08/01/19 History Gabapentin [Neurontin] 600 mg PO BID 08/01/19 08/01/19 History HYDROcodone/APAP 5-325MG [[place] 1 tab PO Q8H PRN 08/01/19 08/01/19 History 5-325] Linagliptin/Metformin HCl 1 tab PO BID 08/01/19 08/01/19 History [Jentadueto 2.5 mg-1000 mg Tab] Loperamide [Imodium] 8 mg PO DAILY 08/01/19 08/01/19 History Magnesium Oxide [Mag-Ox] 400 mg PO BID 08/01/19 08/01/19 History Metoprolol Succinate [Toprol XL] 25 mg PO HS 08/01/19 08/01/19 History Omeprazole 20 mg PO DAILY 08/01/19 08/01/19 History PARoxetine HCL [Paxil] 40 mg PO DAILY 08/01/19 08/01/19 History Pravastatin Sodium [Pravachol] 40 mg PO HS 08/01/19 08/01/19 History Primidone [Mysoline] 100 mg PO HS 08/01/19 08/01/19 History Tiotropium Lucern[place] [Spiriva] 1 cap INHALATION RT-HS 08/01/19 08/01/19 History guaiFENesin [Mucinex] 600 mg PO Q12H 08/01/19 08/01/19 History Allergies Allergy/AdvReac Type Severity Reaction Status Date / Time amoxicillin Allergy Unknown Verified 08/01/19 17:00 niacin Allergy Unknown Verified 08/01/19 17:00 [From Niaspan Extended-Release] Penicillins Allergy Unknown Verified 08/01/19 17:00 Physical Exam Vitals: Vital Signs Temp Pulse Pulse Resp BP Pulse Ox 08/04/19 09:52 68 08/04/19 09:37 66 08/04/19 07:00 97.4 F L 75 16 132/74 98 08/04/19 01:57 98.0 F 82 18 96/56 96 08/04/19 01:40 72 08/04/19 01:28 68 08/03/19 20:14 68 08/03/19 20:04 69 08/03/19 19:14 98.0 F 64 18 135/63 96 08/03/19 16:00 67 08/03/19 15:52 67 08/03/19 15:00 98 F 82 14 109/72 92 L 08/03/19 12:27 79 18 08/03/19 12:20 78 19 Intake and Output 08/03/19 08/04/19 08/04/19 22:59 06:59 14:59 Output Total 700 Balance -700 Output: Urine 700 Other: Voiding Method Incontinent # Voids 1 Results 08/04/19 07:13 08/04/19 07:13 CBC 08/04/19 Range/Units 07:13 WBC 15.8 H (3.8-10.6) k/uL RBC 3.41 L (3.80-5.40) m/uL Hgb 10.1 L (11.4-16.0) gm/dL Hct 31.1 L (34.0-46.0) % Plt Count 321 (150-450) k/uL Comprehensive Metabolic Panel 08/04/19 Range/Units 07:13 Sodium 139 (137-145) mmol/L Potassium 3.3 L (3.5-5.1) mmol/L Chloride 108 H (98-107) mmol/L Carbon Dioxide 23 (22-30) mmol/L BUN 11 (7-17) mg/dL Creatinine 0.41 L (0.52-1.04) mg/dL Glucose 188 H (74-99) mg/dL Calcium 8.7 (8.4-10.2) mg/dL Current Medications Generic Name Dose Route Start Last Admin Trade Name Freq PRN Reason Stop Dose Admin Albuterol/Ipratropium 3 ml 08/01/19 20:00 08/04/19 09:37 Duoneb 0.5 Mg-3 Mg/3 Ml Soln INHALATION 3 ml RT-Q4H KRISTIE Administration Apixaban 2.5 mg 08/04/19 09:45 08/04/19 09:49 Eliquis PO 2.5 mg BID KRISTIE Administration Aspirin 81 mg 08/02/19 09:00 08/04/19 08:27 Aspirin PO 81 mg DAILY KRISTIE Administration Calcium Carbonate 1 each 08/02/19 21:00 08/03/19 20:52 Oscal 500+D PO 1 each HS KRISTIE Administration Duloxetine HCl 60 mg 08/02/19 09:00 08/04/19 08:26 Cymbalta PO 60 mg DAILY KRISTIE Administration Famotidine 20 mg 08/04/19 09:00 08/04/19 08:27 Pepcid PO 20 mg BID KRISTIE Administration Gabapentin 600 mg 08/02/19 09:00 08/04/19 08:26 Neurontin PO 600 mg BID KRISTIE Administration Guaifenesin 600 mg 08/03/19 21:00 08/04/19 08:27 Mucinex PO 600 mg Q12HR KRISTIE Administration Sodium Chloride 1,000 mls @ 60 mls/hr 08/01/19 17:00 08/04/19 06:16 Saline 0.9% IV 60 mls/hr .[id number] KRISTIE Administration Insulin Aspart 0 unit 08/01/19 17:30 08/04/19 08:26 Novolog SQ 2 unit ACHS KRISTIE Administration Protocol Ketotifen Fumarate 1 drops 08/02/19 09:00 08/04/19 08:27 Zaditor BOTH EYES 1 drops BID KRISTIE Administration Levofloxacin 750 mg 08/03/19 17:00 08/03/19 18:10 Levaquin PO 750 mg Q24H KRISTIE Administration Loperamide HCl 8 mg 08/01/19 23:40 Imodium PO DAILY PRN Diarrhea Magnesium Oxide 400 mg 08/02/19 09:00 08/04/19 08:27 Mag-Ox PO 400 mg BID KRISTIE Administration Metoprolol Succinate 50 mg 08/04/19 21:00 Toprol Xl PO HS [facility] Miscellaneous Information 1 each 08/01/19 16:53 Pneumonia Protocol Utilized PO ONCE PRN Per Protocol Oseltamivir Phosphate 75 mg 08/02/19 11:00 08/04/19 08:26 Tamiflu PO 08/06/19 21:01 75 mg Q12HR KRISTIE Administration Pantoprazole Sodium 40 mg 08/02/19 09:00 08/04/19 08:27 Protonix PO 40 mg DAILY KRISTIE Administration Paroxetine HCl 40 mg 08/02/19 09:00 08/04/19 08:26 Paxil PO 40 mg DAILY KRISTIE Administration Pravastatin Sodium 40 mg 08/02/19 21:00 08/03/19 20:52 Pravachol PO 40 mg HS KRISTIE Administration Prednisone 30 mg 08/03/19 13:00 08/04/19 08:26 PO 30 mg DAILY KRISTIE Administration Primidone 100 mg 08/02/19 21:00 08/03/19 20:52 Mysoline PO 100 mg HS KRISTIE Administration Intake and Output 08/03/19 08/04/19 08/04/19 22:59 06:59 14:59 Output Total 700 Balance -700 Output: Urine 700 Other: Voiding Method Incontinent # Voids 1 08/04/19 07:13 08/04/19 07:13
[2019-08-04 11:57] LABS: Glucose,Whole Blood 167 mg/dL (75-99)
--- NOTE | 2019-08-04 12:00 | ECHOF ---
Referral Reason:new afib MEASUREMENTS -------- HEIGHT: 165.1 cm WEIGHT: 54.4 kg BP: 132/74 RVIDd: 3.7 cm (< 3.3) IVSd: 1.3 cm (0.6 - 1.1) LVIDd: 2.8 cm (3.9 - 5.3) LVPWd: 1.4 cm (0.6 - 1.1) IVSs: 1.6 cm LVIDs: 1.5 cm LVPWs: 1.6 cm LAESV Index (A-L): 33.02 ml/m Ao Diam: 2.9 cm (2.0 - 3.7) AV Cusp: 1.3 cm (1.5 - 2.6) LA Diam: 4.3 cm (2.7 - 3.8) RAP: 5.00 mmHg RVSP: 42.67 mmHg FINDINGS -------- Atrial fibrillation with RVR. This was a technically adequate study. The left ventricular size is normal. There is mild concentric left ventricular hypertrophy. Overa ll left ventricular systolic function is low-normal with, an EF between 50 - 55 %. Diastolic functi on could not be determined The right ventricle is mildly enlarged. Left atrium is mildly dilated by volume. The right atrial size is normal. Interatrial and interventricular septum intact. There is mild aortic valve sclerosis without stenosis. There is no evidence of aortic regurgitation . The mitral valve leaflets are mildly thickened. Mild mitral regurgitation is present. Moderate tricuspid regurgitation present. There is mild pulmonary hypertension. The right ventric ular systolic pressure, as measured by Doppler, is 42.67mmHg. There is no pulmonic regurgitation present. The aortic root size is normal. The inferior vena cava is mildly dilated. There is no pericardial effusion. CONCLUSIONS -------- 1. Atrial fibrillation with RVR. 2. This was a technically adequate study. 3. The left ventricular size is normal. 4. There is mild concentric left ventricular hypertrophy. 5. Overall left ventricular systolic function is low-normal with, an EF between 50 - 55 %. 6. Diastolic function could not be determined due to Afib 7. The right ventricle is mildly enlarged. 8. Left atrium is mildly dilated by volume. 9. There is mild aortic valve sclerosis without stenosis. 10. There is no evidence of aortic regurgitation. 11. The mitral valve leaflets are mildly thickened. 12. Mild mitral regurgitation is present. 13. Moderate tricuspid regurgitation present. 14. There is mild pulmonary hypertension. 15. There is no pulmonic regurgitation present. 16. The aortic root size is normal. 17. The inferior vena cava is mildly dilated. 18. There is no pericardial effusion. REFRIGERATION INSULATOR: Shila Castillo RDCS
[2019-08-04] MEDS: DILTIAZEM ORAL 30 MG TAB PO SCH ×3 (12:51→21:38)
[2019-08-04] MEDS: POTASSIUM CHLORIDE ER 10 MEQ TAB.ER.PRT PO SCH (12:51)
--- NOTE | 2019-08-04 14:09 | P.PN ---
Subjective Progress Note Date: 08/03/19 Principal diagnosis: Acute right lower lobe pneumonia Acute influenza B infection Patient is a 83-year-old female with a known history of with a known history of dementia, adult failure to thrive, diabetes type 2 [id number], hyperlipidemia, COPD, anxiety/depression and previous history of smoking was brought to the hospital from extended care facility with complaints of shortness of breath, fever and tachycardia and hypoxia. . Patient does have underlying dementia and could not provide any history at this time. Patient was found by EMS lying in bed at shelter. No cough or sputum production. Denied any abdominal pain. No nausea no vomiting. Patient does have chronic diarrhea otherwise. As per shelter records patient was admitted to the [facility] in November 2018 with sepsis secondary to UTI and pneumonia left side. T-max 101.8. patient was on 100% nontender with her on admission. EKG showed sinus rhythm with PACs. Chest x-ray showed right-sided pneumonia. No heart failure does seem. 08/02/2019 Patient is more awake and oriented today. Patient is tested positive for influenza B. Started on Tamiflu. Continue with antibiotics for right lower lobe pneumonia and follow final culture reports. Leukocytosis improved. WBC count decreased from 14.4-10.2 Continued on IV steroids due to COPD Patient was encouraged with increase oral intake and symptomatic management. PTOT consulted possible rehab transfer. Patient has been afebrile. No complaints of chest pain or worsening shortness of breath. No nausea vomiting or diarrhea. 08 03 2019 Patient's breathing status is better today. Able to sit in the chair. Patient is still lethargic and does have underlying dementia with memory impairment No fever no chills. Bibasilar diminished air entry but wheezing is improving. Steroids will be changed to by mouth. Patient is tolerating oral diet and reduce IV fluid rate. No nausea vomiting or diarrhea. Patient will be continued on PTOT and possible discharge in 1-2 days. Current medications reviewed. Objective - Vital Signs Vital signs: Vital Signs Temp 98.0 F 08/03/19 19:14 Pulse 68 08/03/19 20:14 Resp 18 08/03/19 19:14 BP 135/63 08/03/19 19:14 Pulse Ox 96 08/03/19 19:14 Intake & Output 08/03/19 08/03/19 08/04/19 06:59 18:59 06:59 Intake Total 840 Balance 840 Intake: Intake, IV Titration 840 Amount Sodium Chloride 0.9% 1, 840 000 ml @ 60 mls/hr IV . [id number] [facility] Rx#:[id number] Other: Voiding Method Incontinent Incontinent # Voids 4 3 - Exam PHYSICAL EXAMINATION: Patient is lying in the bed comfortably, no acute distress, awake alert and oriented.. HEENT: Normocephalic. Neck is supple. Pupils reactive. Nostrils clear. Oral cavity is moist. Ears reveal no drainage. Neck reveals no JVD, carotid bruits, or thyromegaly. CHEST EXAMINATION: Trachea is central. Symmetrical expansion. Right basilar scattered rhonchi Lung gonzalez clear to auscultation and percussion. CARDIAC: Normal S1, S2 with no gallops. No murmurs ABDOMEN: Soft. Bowel sounds normal. No organomegaly. No abdominal bruits. Extremities: reveal no edema. No clubbing or cyanosis Neurologically awake, alert, oriented x2-3 with well-coordinated movements. No focal deficits noted Skin: No rash or skin lesions. Psychiatric: Coperative. Nonsuicidal Musculoskeletal: No joint swelling or deformity. Normal range of motion. - Labs CBC & Chem 7: 08/04/19 07:13 08/04/19 07:13 Labs: Abnormal Lab Results - Last 24 Hours (Table) 08/03/19 08/03/19 08/03/19 Range/Units 07:23 12:17 17:06 POC Glucose (mg/dL) 248 H 185 H 201 H (75-99) mg/dL 08/03/19 Range/Units 20:37 POC Glucose (mg/dL) 229 H (75-99) mg/dL Microbiology - Last 24 Hours (Table) 08/01/19 15:27 Blood Culture - Preliminary Blood No Growth after 48 hours 08/02/19 11:13 Gram Stain - Preliminary Sputum Sputum Culture - Preliminary Assessment and Plan Assessment: Acute influenza B infection Sepsis secondary to right lower lobe pneumonia. Patient was febrile tachycardic and hypoxic on admission Acute COPD exacerbation. Acute hypoxic respiratory failure secondary to pneumonia and COPD Dementia and failure to thrive GERD Hyperlipidemia Diabetes type 2 nausea and dependent Previous history of smoking Anxiety/depression Chronic diarrhea DVT prophylaxis Plan: Patient will be continued on IV hydration with normal saline. Antibiotics in the form of Levaquin. Added Tamiflu. Continue with breathing treatments and IV steroids. IV steroids will be changed to by mouth tomorrow. Insulin sliding scale. Continue to follow closely. Further recommendations based on clinical course. Prognosis is guarded with multiple medical problems and comorbid conditions. Time with Patient: Greater than 30
[2019-08-04 17:21] LABS: Glucose,Whole Blood 153 mg/dL (75-99)
[2019-08-04] MEDS: LEVOFLOXACIN 750 MG TAB PO SCH (17:27)
[2019-08-04] MEDS: METOPROLOL SUCCINATE (ER) 50 MG TAB.ER.24H PO SCH (20:10)
[2019-08-04] MEDS: CALCIUM CARB-VIT D 500MG-200UN 1 EACH TAB PO SCH (20:10)
[2019-08-04] MEDS: PRAVASTATIN SODIUM 40 MG TAB PO SCH (20:10)
[2019-08-04] MEDS: PRIMIDONE 50 MG TAB PO SCH (20:12)
[2019-08-04 21:09] LABS: Glucose,Whole Blood 172 mg/dL (75-99)
--- NOTE | 2019-08-04 23:18 | P.PN ---
Subjective Progress Note Date: 08/04/19 Principal diagnosis: Acute right lower lobe pneumonia Acute influenza B infection Patient is a 83-year-old female with a known history of with a known history of dementia, adult failure to thrive, diabetes type 2 [id number]-xqllfidig, hyperlipidemia, COPD, anxiety/depression and previous history of smoking was brought to the hospital from extended care facility with complaints of shortness of breath, fever and tachycardia and hypoxia. . Patient does have underlying dementia and could not provide any history at this time. Patient was found by EMS lying in bed at detention. No cough or sputum production. Denied any abdominal pain. No nausea no vomiting. Patient does have chronic diarrhea otherwise. As per detention records patient was admitted to the [facility] in November 2018 with sepsis secondary to UTI and pneumonia left side. T-max 101.8. patient was on 100% nontender with her on admission. EKG showed sinus rhythm with PACs. Chest x-ray showed right-sided pneumonia. No heart failure does seem. 08/02/2019 Patient is more awake and oriented today. Patient is tested positive for influenza B. Started on Tamiflu. Continue with antibiotics for right lower lobe pneumonia and follow final culture reports. Leukocytosis improved. WBC count decreased from 14.4-10.2 Continued on IV steroids due to COPD Patient was encouraged with increase oral intake and symptomatic management. PTOT consulted possible rehab transfer. Patient has been afebrile. No complaints of chest pain or worsening shortness of breath. No nausea vomiting or diarrhea. 08 03 2019 Patient's breathing status is better today. Able to sit in the chair. Patient is still lethargic and does have underlying dementia with memory impairment No fever no chills. Bibasilar diminished air entry but wheezing is improving. Steroids will be changed to by mouth. Patient is tolerating oral diet and reduce IV fluid rate. No nausea vomiting or diarrhea. Patient will be continued on PTOT and possible discharge in 1-2 days. 08 04 2019 She is currently sitting in the chair comfortably. Patient went into atrial fibrillation with rapid ventricular rate. Started on Cardizem drip. Cardiology was consulted. Otherwise patient is being continued on antibiotics for right lower lobe pneumonia and Tamiflu for influenza B infection Reduced the steroid dose to 30 mg daily. No fever no chills. Patient denied any complaints of chest pain or worsening shortness of breath. No nausea vomiting or abdominal pain or diarrhea. Cardiology is following. Patient was started on Toprol-XL and added eliquis for anticoagulation. Tolerating oral diet. Current medications reviewed. Objective - Vital Signs Vital signs: Vital Signs Temp 97.4 F L 08/04/19 07:00 Pulse 72 08/04/19 13:45 Resp 16 08/04/19 07:00 BP 128/86 08/04/19 12:07 Pulse Ox 94 L 08/04/19 12:07 Intake & Output 08/03/19 08/04/19 08/04/19 18:59 06:59 18:59 Intake Total 0 Output Total 700 Balance -700 0 Intake: Oral 0 Output: Urine 700 Other: Voiding Method Incontinent Incontinent # Voids 3 1 3 - Exam PHYSICAL EXAMINATION: Patient is lying in the bed comfortably, no acute distress, awake alert and oriented.. HEENT: Normocephalic. Neck is supple. Pupils reactive. Nostrils clear. Oral cavity is moist. Ears reveal no drainage. Neck reveals no JVD, carotid bruits, or thyromegaly. CHEST EXAMINATION: Trachea is central. Symmetrical expansion. Right basilar scattered rhonchi Lung gonzalez clear to auscultation and percussion. CARDIAC: Normal S1, S2 with no gallops. No murmurs ABDOMEN: Soft. Bowel sounds normal. No organomegaly. No abdominal bruits. Extremities: reveal no edema. No clubbing or cyanosis Neurologically awake, alert, oriented x2-3 with well-coordinated movements. No focal deficits noted Skin: No rash or skin lesions. Psychiatric: Coperative. Nonsuicidal Musculoskeletal: No joint swelling or deformity. Normal range of motion. - Labs CBC & Chem 7: 08/04/19 07:13 08/04/19 07:13 Labs: Abnormal Lab Results - Last 24 Hours (Table) 08/03/19 08/03/19 08/04/19 Range/Units 17:06 20:37 07:13 WBC 15.8 H (3.8-10.6) k/uL RBC 3.41 L (3.80-5.40) m/uL Hgb 10.1 L (11.4-16.0) gm/dL Hct 31.1 L (34.0-46.0) % RDW 16.6 H (11.5-15.5) % Neutrophils # 13.7 H (1.3-7.7) k/uL Potassium (3.5-5.1) mmol/L Chloride (98-107) mmol/L Creatinine (0.52-1.04) mg/dL Glucose (74-99) mg/dL POC Glucose (mg/dL) 201 H 229 H (75-99) mg/dL 08/04/19 08/04/19 08/04/19 Range/Units 07:13 07:46 11:55 WBC (3.8-10.6) k/uL RBC (3.80-5.40) m/uL Hgb (11.4-16.0) gm/dL Hct (34.0-46.0) % RDW (11.5-15.5) % Neutrophils # (1.3-7.7) k/uL Potassium 3.3 L (3.5-5.1) mmol/L Chloride 108 H (98-107) mmol/L Creatinine 0.41 L (0.52-1.04) mg/dL Glucose 188 H (74-99) mg/dL POC Glucose (mg/dL) 189 H 167 H (75-99) mg/dL Microbiology - Last 24 Hours (Table) 08/02/19 11:13 Gram Stain - Final Sputum Sputum Culture - Final 08/01/19 15:27 Blood Culture - Preliminary Blood No Growth after 48 hours Assessment and Plan Assessment: New onset atrial fibrillation with rapid regular rate. Acute influenza B infection Sepsis secondary to right lower lobe pneumonia. Patient was febrile tachycardic and hypoxic on admission Acute COPD exacerbation. Acute hypoxic respiratory failure secondary to pneumonia and COPD Dementia and failure to thrive GERD Hyperlipidemia Diabetes type 2 nausea and dependent Previous history of smoking Anxiety/depression Chronic diarrhea DVT prophylaxis Plan: Patient was started on Cardizem drip due to new onset atrial fibrillation and cardiology has seen the patient. Added Toprol-XL and apixaban for anticoagulation.. Patient is tolerating oral diet. Encourage oral intake.. Antibiotics in the f orm of Levaquin. Added Tamiflu. Continue with breathing treatments and IV steroids. IV steroids changed to by mouth. Insulin sliding scale. Continue to follow closely. Further recommendations based on clinical course. Prognosis is guarded with multiple medical problems and comorbid conditions. PTOT consult Time with Patient: Greater than 30
[2019-08-05] MEDS: IPRATROPIUM-ALBUTEROL 3 ML NEB INHALATION SCH ×7 (00:15→23:42)
[2019-08-05] MEDS ORDERED: METOPROLOL SUCCINATE (ER) 25 MG TAB.ER.24H PO STA (03:40)
[2019-08-05 07:32] LABS: Glucose,Whole Blood 143 mg/dL (75-99)
[2019-08-05 07:38] LABS: Anisocytosis Slight; Basophils # (A) 0.2 k/uL (0-0.2); Basophils % (A) 1 %; Eosinophils # (A) 0.2 k/uL (0-0.7); Eosinophils % (A) 1 %; HCT 31.3 % (34.0-46.0); HGB 10.4 gm/dL (11.4-16.0); Lymphocytes # (A) 2.4 k/uL (1.0-4.8); Lymphocytes % (A) 15 %; MCH 29.7 pg (25.0-35.0); MCHC 33.1 g/dL (31.0-37.0); MCV 89.6 fL (80.0-100.0); Mean Platelet Volume 8.1; Monocytes # (A) 0.7 k/uL (0-1.0); Monocytes % (A) 4 %; Neutrophils # (A) 12.5 k/uL (1.3-7.7); Neutrophils % (A) 78 %; Platelet Count 305 k/uL (150-450); RBC 3.49 m/uL (3.80-5.40); RDW 18.2 % (11.5-15.5); WBC 16.1 k/uL (3.8-10.6)
[2019-08-05] MEDS: predniSONE 10 MG TAB PO SCH (08:12)
[2019-08-05] MEDS: INSULIN ASPART (NovoLOG) 100 UNIT/ML VIAL SQ SCH ×4 (08:12→21:25)
[2019-08-05] MEDS: ASPIRIN 81 MG PO SCH (08:12)
[2019-08-05] MEDS: PARoxetine 20 MG TAB PO SCH (08:12)
[2019-08-05] MEDS: GABAPENTIN 300 MG CAP PO SCH ×2 (08:12→21:11)
[2019-08-05] MEDS: guaiFENesin 600 MG TABLET.ER PO SCH ×2 (08:12→21:12)
[2019-08-05] MEDS: APIXABAN 2.5 MG TABLET PO SCH ×2 (08:12→21:11)
[2019-08-05] MEDS: DULoxetine HCL 60 MG CAPSULE.DR PO SCH (08:13)
[2019-08-05] MEDS: MAGNESIUM OXIDE 400 MG TAB PO SCH ×2 (08:13→21:12)
[2019-08-05] MEDS: POTASSIUM CHLORIDE ER 10 MEQ TAB.ER.PRT PO SCH (08:13)
[2019-08-05] MEDS: OSELTAMIVIR 75 MG CAP PO SCH ×2 (08:13→22:11)
[2019-08-05] MEDS: PANTOPRAZOLE 40 MG TABLET PO SCH (08:13)
[2019-08-05] MEDS: DILTIAZEM ORAL 30 MG TAB PO SCH (08:13)
[2019-08-05] MEDS: KETOTIFEN 0.025% OPHTH DROPS 5 ML BTL BOTH EYES SCH ×2 (08:14→21:12)
[2019-08-05 08:30] LABS: African American GFR (CKD) >90 (>60 ml/min/1.73 sqM); Anion Gap 8 mmol/L; Blood Urea Nitrogen 14 mg/dL (7-17); Calcium 8.9 mg/dL (8.4-10.2); Carbon Dioxide 21 mmol/L (22-30); Chloride 110 mmol/L (98-107); Glucose 145 mg/dL (74-99); Potassium 4.1 mmol/L (3.5-5.1); Sodium 139 mmol/L (137-145)
[2019-08-05] MEDS ORDERED: SODIUM CHLORIDE 0.9% 500 ML 500 ML IV ONE (11:05)
[2019-08-05] MEDS ORDERED: HYDROcodone/APAP 5-325MG 1 EACH TAB PO STA (11:06)
--- NOTE | 2019-08-05 11:29 | XR ---
EXAMINATION TYPE: XR chest 1V DATE OF EXAM: 08/05/2019 HISTORY: Shortness of breath. COMPARISON: 08/01/2019 TECHNIQUE: Single view of the chest is submitted. FINDINGS: Demonstrated are scattered senescent parenchymal change. There is no evidence for focal infiltrate. The heart is stable. Hilar and mediastinal structures are within normal limits. Degenerative changes are seen of the dorsal spine. IMPRESSION: 1. Chronic changes without evidence for acute pulmonary disease.
[2019-08-05 11:47] LABS: Glucose,Whole Blood 144 mg/dL (75-99)
--- NOTE | 2019-08-05 13:09 | PN ---
PROGRESS NOTE Mrs. Cortez is an 83-year-old female who presented with symptoms of respiratory infection who was in sinus mechanism on presentation then subsequently went in atrial fibrillation with rapid ventricular response. She was diagnosed with influenza B infection. She is feeling better today. Her breathing is better. She is still in atrial fibrillation with episode of rapid ventricular response. She has no chest pain. No dizziness. No palpitation. Her echocardiogram revealed a preserved systolic function. She was started on anticoagulation yesterday and she continues to be on Eliquis 2.5 mg twice a day, diltiazem 30 mg 3 times a day and metoprolol succinate 50 mg daily. PHYSICAL EXAMINATION: Blood pressure running in the one teens and high 90s with the heart rate in the 110. LUNGS: With scattered rhonchi. HEART: Irregular, irregular. S1, S2. No S3. No rub. ABDOMEN: Soft, nontender. Positive bowel sounds. EXTREMITIES: No edema. LAB DATA: Lab data revealed BUN and creatinine 14 and 0.52, potassium 4.1. Hemoglobin of 10.4. Her thyroid function tests are normal. Her magnesium is 1.9. IMPRESSION: 1. Influenza B infection. 2. Atrial fibrillation with rapid ventricular response, could be exacerbated by the infectious process. RECOMMENDATION: I will increase the dose of her Cardizem to 60 mg t.i.d. her. Continue rest of her medical regimen. Follow her heart rate and depending on her progress, further recommendation will be made. MMESMERL / IJN: [id number] /
[2019-08-05 16:54] LABS: Glucose,Whole Blood 188 mg/dL (75-99)
[2019-08-05] MEDS: DILTIAZEM ORAL 60 MG TAB PO SCH ×2 (17:33→21:21)
[2019-08-05] MEDS: LEVOFLOXACIN 750 MG TAB PO SCH (17:33)
[2019-08-05] MEDS: SODIUM CHLORIDE 0.9% 1,000 ML IV SCH (17:34)
[2019-08-05] MEDS ORDERED: POLYETHYLENE GLYCOL 3350 17 GM POWD.PACK PO STA (18:04)
[2019-08-05] MEDS ORDERED: BISACODYL 10 MG SUPP RECTAL STA (18:04)
[2019-08-05] MEDS: METOPROLOL SUCCINATE (ER) 50 MG TAB.ER.24H PO SCH (21:11)
[2019-08-05] MEDS: PRIMIDONE 50 MG TAB PO SCH (21:11)
[2019-08-05] MEDS: CALCIUM CARB-VIT D 500MG-200UN 1 EACH TAB PO SCH (21:12)
[2019-08-05] MEDS: PRAVASTATIN SODIUM 40 MG TAB PO SCH (21:12)
[2019-08-05] MEDS: SENNOSIDES 8.6 MG TAB PO SCH (21:12)
[2019-08-05 21:22] LABS: Glucose,Whole Blood 178 mg/dL (75-99)
[2019-08-05] MEDS ORDERED: DILTIAZEM 125 MG in SODIUM CHLORIDE 0.9% 100 ML IV SCH (22:45)
[2019-08-06] MEDS: IPRATROPIUM-ALBUTEROL 3 ML NEB INHALATION SCH ×5 (03:27→19:40)
[2019-08-06 06:06] LABS: Anisocytosis Slight; HCT 31.4 % (34.0-46.0); HGB 10.1 gm/dL (11.4-16.0); MCH 29.4 pg (25.0-35.0); MCHC 32.1 g/dL (31.0-37.0); MCV 91.5 fL (80.0-100.0); Mean Platelet Volume 7.7; Platelet Count 350 k/uL (150-450); RBC 3.43 m/uL (3.80-5.40); RDW 17.5 % (11.5-15.5); WBC 14.4 k/uL (3.8-10.6)
[2019-08-06 06:35] LABS: Glucose,Whole Blood 170 mg/dL (75-99)
[2019-08-06 06:45] LABS: African American GFR (CKD) >90 (>60 ml/min/1.73 sqM); Anion Gap 7 mmol/L; Blood Urea Nitrogen 16 mg/dL (7-17); Calcium 8.7 mg/dL (8.4-10.2); Carbon Dioxide 22 mmol/L (22-30); Chloride 108 mmol/L (98-107); Glucose 168 mg/dL (74-99); Potassium 4.2 mmol/L (3.5-5.1); Sodium 137 mmol/L (137-145)
[2019-08-06] MEDS: INSULIN ASPART (NovoLOG) 100 UNIT/ML VIAL SQ SCH ×4 (06:50→21:10)
[2019-08-06] MEDS: guaiFENesin 600 MG TABLET.ER PO SCH ×2 (09:07→21:09)
[2019-08-06] MEDS: DILTIAZEM ORAL 60 MG TAB PO SCH (09:07)
[2019-08-06] MEDS: GABAPENTIN 300 MG CAP PO SCH ×2 (09:07→21:08)
[2019-08-06] MEDS: SODIUM CHLORIDE 0.9% 1,000 ML IV SCH (09:07)
[2019-08-06] MEDS: PARoxetine 20 MG TAB PO SCH (09:07)
[2019-08-06] MEDS: DULoxetine HCL 60 MG CAPSULE.DR PO SCH (09:07)
[2019-08-06] MEDS: MAGNESIUM OXIDE 400 MG TAB PO SCH ×2 (09:07→21:08)
[2019-08-06] MEDS: predniSONE 10 MG TAB PO SCH (09:07)
[2019-08-06] MEDS: OSELTAMIVIR 75 MG CAP PO SCH ×2 (09:07→21:09)
[2019-08-06] MEDS: POTASSIUM CHLORIDE ER 10 MEQ TAB.ER.PRT PO SCH (09:07)
[2019-08-06] MEDS: PANTOPRAZOLE 40 MG TABLET PO SCH (09:07)
[2019-08-06] MEDS: APIXABAN 2.5 MG TABLET PO SCH ×2 (09:07→21:09)
[2019-08-06] MEDS: KETOTIFEN 0.025% OPHTH DROPS 5 ML BTL BOTH EYES SCH ×2 (09:07→21:09)
--- NOTE | 2019-08-06 10:57 | P.PN ---
Subjective Progress Note Date: 08/06/19 This is an 83-year-old female who presented to the hospital with Influenza B and initially was in a sinus rhythm but subsequently went into atrial fibrillation with RVR. Patient has been seen by Dr. Zepeda and Toprol has been increased to 50 mg and she was started on Cardizem 60 mg 3 times daily. During the night, the patient's heart rate and to the 150s still in atrial fibrillation and patient was started on a Cardizem drip. She is now running in the 70s to 80s in atrial fibrillation. She denies having any true chest pain or shortness of breath. She states earlier today she had a needle poking sensation in the left side of her chest. Patient's main concern at this time is regarding constipation. Patient has been started on eliquis during this hospitalization. Repeat chest x-ray this morning chronic changes without acute pulmonary disease. Gen: This is an 83-year-old female. Patient is sitting up in bed and appears to be comfortable and in no acute distress. 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 Blood pressure 108/65, pulse ox 93% on room air. HEENT: Head is atraumatic, normocephalic. Pupils equal, round. Sclerae is an icteric. NECK: Supple. No JVD. No lymphadenopathy. No thyromegaly. LUNGS: Clear to auscultation. No wheezes or rhonchi. No intercostal retractions. HEART: Irregularly irregular rate and rhythm. No murmur. ABDOMEN: Soft. Bowel sounds are present. No masses. No tenderness. EXTREMITIES: No pedal edema. No calf tenderness. NEUROLOGICAL: Patient is awake, alert and oriented x3. Assessment: Influenza B infection New onset atrial fibrillation with RVR, paroxysmal atrial fibrillation secondary to underlying infection COPD Pneumonia Hypertension Hyperlipidemia Plan: Discontinue Cardizem drip Continue Toprol XL 50 mg daily Increase Cardizem to 90 mg 3 times daily Continue eliquis 2.5 mg twice daily for thromboembolic protection Further recommendations to follow based upon clinical course. Nurse practitioner note has been reviewed, I agree with documented findings and plan of care. Patient was seen and examined. Objective - Vital Signs Vital signs: Vital Signs Temp 97.1 F L 08/06/19 08:00 Pulse 112 H 08/06/19 08:11 Resp 16 08/06/19 08:00 BP 108/65 08/06/19 08:00 Pulse Ox 93 L 08/06/19 08:00 Intake & Output 08/05/19 08/06/19 08/06/19 18:59 06:59 18:59 Intake Total 240 Output Total 700 Balance -700 240 Intake: Oral 240 Output: Urine 700 Other: Voiding Method Incontinent Incontinent Incontinent # Voids 2 - Labs CBC & Chem 7: 08/06/19 05:46 08/06/19 05:46 Labs: Abnormal Lab Results - Last 24 Hours (Table) 08/05/19 08/05/19 08/05/19 Range/Units 09:55 11:45 14:18 WBC (3.8-10.6) k/uL RBC (3.80-5.40) m/uL Hgb (11.4-16.0) gm/dL Hct (34.0-46.0) % RDW (11.5-15.5) % Chloride (98-107) mmol/L Creatinine (0.52-1.04) mg/dL Glucose (74-99) mg/dL POC Glucose (mg/dL) 144 H (75-99) mg/dL Plasma Lactic Acid Gurpreet 3.2 H* 2.9 H* (0.7-2.0) mmol/L 08/05/19 08/05/19 08/06/19 Range/Units 16:43 21:21 05:46 WBC (3.8-10.6) k/uL RBC (3.80-5.40) m/uL Hgb (11.4-16.0) gm/dL Hct (34.0-46.0) % RDW (11.5-15.5) % Chloride 108 H (98-107) mmol/L Creatinine 0.46 L (0.52-1.04) mg/dL Glucose 168 H (74-99) mg/dL POC Glucose (mg/dL) 188 H 178 H (75-99) mg/dL Plasma Lactic Acid Gurpreet (0.7-2.0) mmol/L 08/06/19 08/06/19 Range/Units 05:46 06:31 WBC 14.4 H (3.8-10.6) k/uL RBC 3.43 L (3.80-5.40) m/uL Hgb 10.1 L (11.4-16.0) gm/dL Hct 31.4 L (34.0-46.0) % RDW 17.5 H (11.5-15.5) % Chloride (98-107) mmol/L Creatinine (0.52-1.04) mg/dL Glucose (74-99) mg/dL POC Glucose (mg/dL) 170 H (75-99) mg/dL Plasma Lactic Acid Gurpreet (0.7-2.0) mmol/L Microbiology - Last 24 Hours (Table) 08/01/19 15:27 Blood Culture - Preliminary Blood No Growth after 96 hours
[2019-08-06 11:15] LABS: Band Neutrophils % 1 %; Eosinophils # (M) 0.14 k/uL (0-0.7); Lymphocytes # (M) 3.02 k/uL (1.0-4.8); Metamyelocytes # (M) 0.43 k/uL (0); Metamyelocytes % 3 %; Monocytes # (M) 0.29 k/uL (0-1.0); Myelocytes # (M) 0.14 k/uL (0); Myelocytes % 1 %; Neutrophils % (M) 72 %; Nucleated Red Blood Cells 0 /100 WBC (0-0); Total Cells Counted 200
[2019-08-06 11:16] LABS: Toxic Granulation Present
[2019-08-06 12:16] LABS: Glucose,Whole Blood 153 mg/dL (75-99)
[2019-08-06] MEDS: DILTIAZEM ORAL 30 MG TAB PO SCH ×2 (16:23→21:09)
[2019-08-06] MEDS: LEVOFLOXACIN 750 MG TAB PO SCH (16:23)
[2019-08-06] MEDS: NA PHOS,M-B/NA PHOS,DI-BA 133 ML ENEMA RECTAL SCH ×2 (16:24→22:30)
[2019-08-06 17:00] LABS: Glucose,Whole Blood 225 mg/dL (75-99)
[2019-08-06] MEDS ORDERED: IPRATROPIUM-ALBUTEROL 3 ML NEB INHALATION PRN (19:29)
[2019-08-06 20:50] LABS: Glucose,Whole Blood 213 mg/dL (75-99)
[2019-08-06] MEDS: PRAVASTATIN SODIUM 40 MG TAB PO SCH (21:07)
[2019-08-06] MEDS: METOPROLOL SUCCINATE (ER) 50 MG TAB.ER.24H PO SCH (21:08)
[2019-08-06] MEDS: PRIMIDONE 50 MG TAB PO SCH (21:09)
[2019-08-06] MEDS: CALCIUM CARB-VIT D 500MG-200UN 1 EACH TAB PO SCH (21:09)
[2019-08-06] MEDS: SENNOSIDES 8.6 MG TAB PO SCH (21:09)
--- NOTE | 2019-08-07 02:28 | P.PN ---
Subjective Progress Note Date: 08/05/19 Principal diagnosis: Acute right lower lobe pneumonia Acute influenza B infection Patient is a 83-year-old female with a known history of with a known history of dementia, adult failure to thrive, diabetes type 2 [id number], hyperlipidemia, COPD, anxiety/depression and previous history of smoking was brought to the hospital from extended care facility with complaints of shortness of breath, fever and tachycardia and hypoxia. . Patient does have underlying dementia and could not provide any history at this time. Patient was found by EMS lying in bed at [facility]. No cough or sputum production. Denied any abdominal pain. No nausea no vomiting. Patient does have chronic diarrhea otherwise. As per [facility] records patient was admitted to the [facility] in November 2018 with sepsis secondary to UTI and pneumonia left side. T-max 101.8. patient was on 100% nontender with her on admission. EKG showed sinus rhythm with PACs. Chest x-ray showed right-sided pneumonia. No heart failure does seem. 08/02/2019 Patient is more awake and oriented today. Patient is tested positive for influenza B. Started on Tamiflu. Continue with antibiotics for right lower lobe pneumonia and follow final culture reports. Leukocytosis improved. WBC count decreased from 14.4-10.2 Continued on IV steroids due to COPD Patient was encouraged with increase oral intake and symptomatic management. PTOT consulted possible rehab transfer. Patient has been afebrile. No complaints of chest pain or worsening shortness of breath. No nausea vomiting or diarrhea. 08 03 2019 Patient's breathing status is better today. Able to sit in the chair. Patient is still lethargic and does have underlying dementia with memory impairment No fever no chills. Bibasilar diminished air entry but wheezing is improving. Steroids will be changed to by mouth. Patient is tolerating oral diet and reduce IV fluid rate. No nausea vomiting or diarrhea. Patient will be continued on PTOT and possible discharge in 1-2 days. 08 04 2019 She is currently sitting in the chair comfortably. Patient went into atrial fibrillation with rapid ventricular rate. Started on Cardizem drip. Cardiology was consulted. Otherwise patient is being continued on antibiotics for right lower lobe pneumonia and Tamiflu for influenza B infection Reduced the steroid dose to 30 mg daily. No fever no chills. Patient denied any complaints of chest pain or worsening shortness of breath. No nausea vomiting or abdominal pain or diarrhea. Cardiology is following. Patient was started on Toprol-XL and added eliquis for anticoagulation. Tolerating oral diet. 9,019 Lactic acid was elevated. Patient was given IV hydration. Otherwise patient is complaining of constipation and not having bowel movement for the past 1 week. Heart rate is better controlled now. Patient was started on oral anticoagulation. Cardiology is following. Continued on metoprolol. No fever no chills. No nausea vomiting or abdominal pain. No diarrhea. Tolerating oral diet. Current medications reviewed. Objective - Vital Signs Vital signs: Vital Signs Temp 97.6 F 08/05/19 07:00 Pulse 110 H 08/05/19 09:44 Resp 14 08/05/19 07:00 BP 95/69 08/05/19 07:00 Pulse Ox 97 08/05/19 09:32 Intake & Output 08/04/19 08/05/19 08/05/19 18:59 06:59 18:59 Intake Total 458 10 Output Total 1100 300 Balance -642 -290 Intake: Oral 458 10 Output: Urine 1100 300 Other: Voiding Method Incontinent Incontinent Incontinent # Voids 3 1 - Exam PHYSICAL EXAMINATION: Patient is lying in the bed comfortably, no acute distress, awake alert and oriented.. HEENT: Normocephalic. Neck is supple. Pupils reactive. Nostrils clear. Oral cavity is moist. Ears reveal no drainage. Neck reveals no JVD, carotid bruits, or thyromegaly. CHEST EXAMINATION: Trachea is central. Symmetrical expansion. Right basilar scattered rhonchi Lung gonzalez clear to auscultation and percussion. CARDIAC: Normal S1, S2 with no gallops. No murmurs ABDOMEN: Soft. Bowel sounds normal. No organomegaly. No abdominal bruits. Extremities: reveal no edema. No clubbing or cyanosis Neurologically awake, alert, oriented x2-3 with well-coordinated movements. No focal deficits noted Skin: No rash or skin lesions. Psychiatric: Coperative. Nonsuicidal Musculoskeletal: No joint swelling or deformity. Normal range of motion. - Labs CBC & Chem 7: 08/06/19 05:46 08/06/19 05:46 Labs: Abnormal Lab Results - Last 24 Hours (Table) 08/04/19 08/04/19 08/04/19 Range/Units 11:55 17:09 20:58 WBC (3.8-10.6) k/uL RBC (3.80-5.40) m/uL Hgb (11.4-16.0) gm/dL Hct (34.0-46.0) % RDW (11.5-15.5) % Neutrophils # (1.3-7.7) k/uL Chloride (98-107) mmol/L Carbon Dioxide (22-30) mmol/L Glucose (74-99) mg/dL POC Glucose (mg/dL) 167 H 153 H 172 H (75-99) mg/dL Plasma Lactic Acid Gurpreet (0.7-2.0) mmol/L 08/05/19 08/05/19 08/05/19 Range/Units 07:15 07:15 07:19 WBC 16.1 H (3.8-10.6) k/uL RBC 3.49 L (3.80-5.40) m/uL Hgb 10.4 L (11.4-16.0) gm/dL Hct 31.3 L (34.0-46.0) % RDW 18.2 H (11.5-15.5) % Neutrophils # 12.5 H (1.3-7.7) k/uL Chloride 110 H (98-107) mmol/L Carbon Dioxide 21 L (22-30) mmol/L Glucose 145 H (74-99) mg/dL POC Glucose (mg/dL) 143 H (75-99) mg/dL Plasma Lactic Acid Gurpreet (0.7-2.0) mmol/L 08/05/19 Range/Units 09:55 WBC (3.8-10.6) k/uL RBC (3.80-5.40) m/uL Hgb (11.4-16.0) gm/dL Hct (34.0-46.0) % RDW (11.5-15.5) % Neutrophils # (1.3-7.7) k/uL Chloride (98-107) mmol/L Carbon Dioxide (22-30) mmol/L Glucose (74-99) mg/dL POC Glucose (mg/dL) (75-99) mg/dL Plasma Lactic Acid Gurpreet 3.2 H* (0.7-2.0) mmol/L Microbiology - Last 24 Hours (Table) 08/01/19 15:27 Blood Culture - Preliminary Blood No Growth after 72 hours 08/02/19 11:13 Gram Stain - Final Sputum Sputum Culture - Final Assessment and Plan Assessment: New onset atrial fibrillation with rapid regular rate. Acute influenza B infection Sepsis secondary to right lower lobe pneumonia. Patient was febrile tachycardic and hypoxic on admission Acute COPD exacerbation. Acute hypoxic respiratory failure secondary to pneumonia and COPD Cessation. Dementia and failure to thrive GERD Hyperlipidemia Diabetes type 2 nausea and dependent Previous history of smoking Anxiety/depression Chronic diarrhea DVT prophylaxis Plan: Patient was started on Cardizem drip due to new onset atrial fibrillation and cardiology has seen the patient. Added Toprol-XL and apixaban for anticoagulation.. Patient is tolerating oral diet. Encourage oral intake.. Antibiotics in the form of Levaquin. Added Tamiflu. Continue with breathing treatments and IV steroids. IV steroids changed to by mouth. Insulin sliding scale. Continue to follow closely. Further recommendations based on clinical course. Prognosis is guarded with multiple medical problems and comorbid conditions. PTOT consult Time with Patient: Greater than 30
--- NOTE | 2019-08-07 02:30 | P.PN ---
Subjective Progress Note Date: 08/06/19 Principal diagnosis: Acute right lower lobe pneumonia Acute influenza B infection Patient is a 83-year-old female with a known history of with a known history of dementia, adult failure to thrive, diabetes type 2 [id number], hyperlipidemia, COPD, anxiety/depression and previous history of smoking was brought to the hospital from extended care facility with complaints of shortness of breath, fever and tachycardia and hypoxia. . Patient does have underlying dementia and could not provide any history at this time. Patient was found by EMS lying in bed at [facility]. No cough or sputum production. Denied any abdominal pain. No nausea no vomiting. Patient does have chronic diarrhea otherwise. As per [facility] records patient was admitted to the [facility] in November 2018 with sepsis secondary to UTI and pneumonia left side. T-max 101.8. patient was on 100% nontender with her on admission. EKG showed sinus rhythm with PACs. Chest x-ray showed right-sided pneumonia. No heart failure does seem. 08/02/2019 Patient is more awake and oriented today. Patient is tested positive for influenza B. Started on Tamiflu. Continue with antibiotics for right lower lobe pneumonia and follow final culture reports. Leukocytosis improved. WBC count decreased from 14.4-10.2 Continued on IV steroids due to COPD Patient was encouraged with increase oral intake and symptomatic management. PTOT consulted possible rehab transfer. Patient has been afebrile. No complaints of chest pain or worsening shortness of breath. No nausea vomiting or diarrhea. 08 03 2019 Patient's breathing status is better today. Able to sit in the chair. Patient is still lethargic and does have underlying dementia with memory impairment No fever no chills. Bibasilar diminished air entry but wheezing is improving. Steroids will be changed to by mouth. Patient is tolerating oral diet and reduce IV fluid rate. No nausea vomiting or diarrhea. Patient will be continued on PTOT and possible discharge in 1-2 days. 08 04 2019 She is currently sitting in the chair comfortably. Patient went into atrial fibrillation with rapid ventricular rate. Started on Cardizem drip. Cardiology was consulted. Otherwise patient is being continued on antibiotics for right lower lobe pneumonia and Tamiflu for influenza B infection Reduced the steroid dose to 30 mg daily. No fever no chills. Patient denied any complaints of chest pain or worsening shortness of breath. No nausea vomiting or abdominal pain or diarrhea. Cardiology is following. Patient was started on Toprol-XL and added eliquis for anticoagulation. Tolerating oral diet. 9.20,019 Lactic acid was elevated. Patient was given IV hydration. Otherwise patient is complaining of constipation and not having bowel movement for the past 1 week. Heart rate is better controlled now. Patient was started on oral anticoagulation. Cardiology is following. Continued on metoprolol. No fever no chills. No nausea vomiting or abdominal pain. No diarrhea. Tolerating oral diet. 08/06/2019 Patient is currently awake alert and oriented 2-3. Tolerating oral diet. No bowel movement yet. Started on anymore today. Otherwise heart rate is fairly controlled. Currently on Cardizem 90 mg 3 times a day. Anticoagulation the form of Eliquis. Cardiology is on board. No complaints of chest pain or shortness of breath. No nausea vomiting or diarrhea. No fever no chills. will complete oral antibiotics for 5 days by tomorrow. Current medications reviewed. Objective - Vital Signs Vital signs: Vital Signs Temp 98.4 F 08/06/19 16:00 Pulse 80 08/06/19 16:09 Resp 16 08/06/19 16:00 BP 116/68 08/06/19 16:00 Pulse Ox 95 08/06/19 16:00 Intake & Output 08/06/19 08/06/19 08/07/19 06:59 18:59 06:59 Intake Total 960 Output Total 700 Balance -700 960 Intake: Intake, IV Titration 480 Amount Sodium Chloride 0.9% 1, 480 000 ml @ 60 mls/hr IV . [id number] [facility] Rx#:[id number] Oral 480 Output: Urine 700 Other: Voiding Method Incontinent Incontinent # Voids 2 # Bowel Movements 1 - Exam PHYSICAL EXAMINATION: Patient is lying in the bed comfortably, no acute distress, awake alert and orie nted.. HEENT: Normocephalic. Neck is supple. Pupils reactive. Nostrils clear. Oral cavity is moist. Ears reveal no drainage. Neck reveals no JVD, carotid bruits, or thyromegaly. CHEST EXAMINATION: Trachea is central. Symmetrical expansion. Right basilar scattered rhonchi Lung gonzalez clear to auscultation and percussion. CARDIAC: Normal S1, S2 with no gallops. No murmurs ABDOMEN: Soft. Bowel sounds normal. No organomegaly. No abdominal bruits. Extremities: reveal no edema. No clubbing or cyanosis Neurologically awake, alert, oriented x2-3 with well-coordinated movements. No focal deficits noted Skin: No rash or skin lesions. Psychiatric: Coperative. Nonsuicidal Musculoskeletal: No joint swelling or deformity. Normal range of motion. - Labs CBC & Chem 7: 08/06/19 05:46 08/06/19 05:46 Labs: Abnormal Lab Results - Last 24 Hours (Table) 08/05/19 08/06/19 08/06/19 Range/Units 21:21 05:46 05:46 WBC 14.4 H (3.8-10.6) k/uL RBC 3.43 L (3.80-5.40) m/uL Hgb 10.1 L (11.4-16.0) gm/dL Hct 31.4 L (34.0-46.0) % RDW 17.5 H (11.5-15.5) % Neutrophils # (Manual) 10.50 H (1.3-7.7) k/uL Metamyelocytes # (Man) 0.43 H (0) k/uL Myelocytes # (Manual) 0.14 H (0) k/uL Chloride 108 H (98-107) mmol/L Creatinine 0.46 L (0.52-1.04) mg/dL Glucose 168 H (74-99) mg/dL POC Glucose (mg/dL) 178 H (75-99) mg/dL 08/06/19 08/06/19 08/06/19 Range/Units 06:31 12:11 16:56 WBC (3.8-10.6) k/uL RBC (3.80-5.40) m/uL Hgb (11.4-16.0) gm/dL Hct (34.0-46.0) % RDW (11.5-15.5) % Neutrophils # (Manual) (1.3-7.7) k/uL Metamyelocytes # (Man) (0) k/uL Myelocytes # (Manual) (0) k/uL Chloride (98-107) mmol/L Creatinine (0.52-1.04) mg/dL Glucose (74-99) mg/dL POC Glucose (mg/dL) 170 H 153 H 225 H (75-99) mg/dL Microbiology - Last 24 Hours (Table) 08/01/19 15:27 Blood Culture - Preliminary Blood No Growth after 120 hours Assessment and Plan Assessment: New onset atrial fibrillation with rapid regular rate. Acute influenza B infection Sepsis secondary to right lower lobe pneumonia. Patient was febrile tachycardic and hypoxic on admission Acute COPD exacerbation. Acute hypoxic respiratory failure secondary to pneumonia and COPD Cessation. Dementia and failure to thrive GERD Hyperlipidemia Diabetes type 2 nausea and dependent Previous history of smoking Anxiety/depression Chronic diarrhea DVT prophylaxis Plan: Patient was started on Cardizem drip due to new onset atrial fibrillation and cardiology has seen the patient. Rate controlled with Cardizem and apixaban for anticoagulation.. Patient is tolerating oral diet. Encourage oral intake.. Antibiotics in the form of Levaquin. Added Tamiflu. Continue with breathing treatments and IV steroids. IV steroids changed to by mouth. Insulin sliding scale. Continue to follow closely. Further recommendations based on clinical course. Prognosis is guarded with multiple medical problems and comorbid conditions. PTOT consult Time with Patient: Greater than 30
[2019-08-07] MEDS: SODIUM CHLORIDE 0.9% 1,000 ML IV SCH ×2 (04:17→12:37)
[2019-08-07] MEDS: INSULIN ASPART (NovoLOG) 100 UNIT/ML VIAL SQ SCH ×4 (07:44→20:42)
[2019-08-07] MEDS: IPRATROPIUM-ALBUTEROL 3 ML NEB INHALATION SCH ×4 (08:20→20:24)
[2019-08-07] MEDS: PARoxetine 20 MG TAB PO SCH (08:43)
[2019-08-07] MEDS: POTASSIUM CHLORIDE ER 10 MEQ TAB.ER.PRT PO SCH (08:43)
[2019-08-07] MEDS: guaiFENesin 600 MG TABLET.ER PO SCH ×2 (08:43→20:42)
[2019-08-07] MEDS: DULoxetine HCL 60 MG CAPSULE.DR PO SCH (08:43)
[2019-08-07] MEDS: APIXABAN 2.5 MG TABLET PO SCH ×2 (08:43→20:42)
[2019-08-07] MEDS: PANTOPRAZOLE 40 MG TABLET PO SCH (08:43)
[2019-08-07] MEDS: GABAPENTIN 300 MG CAP PO SCH ×2 (08:43→20:43)
[2019-08-07] MEDS: predniSONE 10 MG TAB PO SCH (08:43)
[2019-08-07] MEDS: MAGNESIUM OXIDE 400 MG TAB PO SCH ×2 (08:44→20:42)
[2019-08-07] MEDS: DILTIAZEM ORAL 30 MG TAB PO SCH ×3 (09:35→20:43)
[2019-08-07] MEDS: KETOTIFEN 0.025% OPHTH DROPS 5 ML BTL BOTH EYES SCH ×2 (09:36→20:42)
[2019-08-07 12:11] LABS: Glucose,Whole Blood 163 mg/dL (75-99)
[2019-08-07 16:56] LABS: Glucose,Whole Blood 218 mg/dL (75-99)
[2019-08-07] MEDS: NA PHOS,M-B/NA PHOS,DI-BA 133 ML ENEMA RECTAL SCH (17:21)
[2019-08-07] MEDS: PRIMIDONE 50 MG TAB PO SCH (20:42)
[2019-08-07] MEDS: SENNOSIDES 8.6 MG TAB PO SCH (20:42)
[2019-08-07] MEDS: CALCIUM CARB-VIT D 500MG-200UN 1 EACH TAB PO SCH (20:42)
[2019-08-07] MEDS: METOPROLOL SUCCINATE (ER) 50 MG TAB.ER.24H PO SCH (20:43)
[2019-08-07] MEDS: PRAVASTATIN SODIUM 40 MG TAB PO SCH (20:43)
[2019-08-07] MEDS: LEVOFLOXACIN 750 MG TAB PO SCH (20:43)
[2019-08-07 20:50] LABS: Glucose,Whole Blood 262 mg/dL (75-99)
--- NOTE | 2019-08-08 02:40 | P.PN ---
Subjective Progress Note Date: 08/07/19 Principal diagnosis: Acute right lower lobe pneumonia Acute influenza B infection Patient is a 83-year-old female with a known history of with a known history of dementia, adult failure to thrive, diabetes type 2 [id number]-[id number], hyperlipidemia, COPD, anxiety/depression and previous history of smoking was brought to the hospital from extended care facility with complaints of shortness of breath, fever and tachycardia and hypoxia. . Patient does have underlying dementia and could not provide any history at this time. Patient was found by EMS lying in bed at skilled nursing. No cough or sputum production. Denied any abdominal pain. No nausea no vomiting. Patient does have chronic diarrhea otherwise. As per skilled nursing records patient was admitted to the [facility] in November 2018 with sepsis secondary to UTI and pneumonia left side. T-max 101.8. patient was on 100% nontender with her on admission. EKG showed sinus rhythm with PACs. Chest x-ray showed right-sided pneumonia. No heart failure does seem. 08/02/2019 Patient is more awake and oriented today. Patient is tested positive for influenza B. Started on Tamiflu. Continue with antibiotics for right lower lobe pneumonia and follow final culture reports. Leukocytosis improved. WBC count decreased from 14.4-10.2 Continued on IV steroids due to COPD Patient was encouraged with increase oral intake and symptomatic management. PTOT consulted possible rehab transfer. Patient has been afebrile. No complaints of chest pain or worsening shortness of breath. No nausea vomiting or diarrhea. 08 03 2019 Patient's breathing status is better today. Able to sit in the chair. Patient is still lethargic and does have underlying dementia with memory impairment No fever no chills. Bibasilar diminished air entry but wheezing is improving. Steroids will be changed to by mouth. Patient is tolerating oral diet and reduce IV fluid rate. No nausea vomiting or diarrhea. Patient will be continued on PTOT and possible discharge in 1-2 days. 08 04 2019 She is currently sitting in the chair comfortably. Patient went into atrial fibrillation with rapid ventricular rate. Started on Cardizem drip. Cardiology was consulted. Otherwise patient is being continued on antibiotics for right lower lobe pneumonia and Tamiflu for influenza B infection Reduced the steroid dose to 30 mg daily. No fever no chills. Patient denied any complaints of chest pain or worsening shortness of breath. No nausea vomiting or abdominal pain or diarrhea. Cardiology is following. Patient was started on Toprol-XL and added eliquis for anticoagulation. Tolerating oral diet. 9.20,019 Lactic acid was elevated. Patient was given IV hydration. Otherwise patient is complaining of constipation and not having bowel movement for the past 1 week. Heart rate is better controlled now. Patient was started on oral anticoagulation. Cardiology is following. Continued on metoprolol. No fever no chills. No nausea vomiting or abdominal pain. No diarrhea. Tolerating oral diet. 08/06/2019 Patient is currently awake alert and oriented 2-3. Tolerating oral diet. No bowel movement yet. Started on anymore today. Otherwise heart rate is fairly controlled. Currently on Cardizem 90 mg 3 times a day. Anticoagulation the form of Eliquis. Cardiology is on board. No complaints of chest pain or shortness of breath. No nausea vomiting or diarrhea. No fever no chills. will complete oral antibiotics for 5 days by tomorrow. 08/07/2019 Patient is Currently awake and alert and oriented. Patient did have bowel movement yesterday and today. Patient was given in edema. Otherwise, no complaints of chest pain or shortness breath. No nausea vomiting or abdominal pain. WBC count 14.4 yesterday. Prednisone titrating down to 20 mg daily. Repeat CBC tomorrow. Currently on Levaquin and Tamiflu. Cardiology is following. Heart rate is at around 100 No fever no chills. No headache or dizziness or lightheadedness. Current medications reviewed. Objective - Vital Signs Vital signs: Vital Signs Temp 97.8 F 08/07/19 15:00 Pulse 84 08/07/19 16:21 Resp 15 08/07/19 15:00 BP 95/60 08/07/19 15:00 Pulse Ox 96 08/07/19 15:00 Intake & Output 08/06/19 08/07/19 08/07/19 18:59 06:59 18:59 Intake Total 960 Output Total 725 Balance 960 -725 Weight 55.5 kg Intake: Intake, IV Titration 480 Amount Sodium Chloride 0.9% 1, 480 000 ml @ 60 mls/hr IV . [id number] [facility] Rx#:[id number] Oral 480 Output: Urine 725 Other: Voiding Method Incontinent Incontinent Incontinent # Voids 2 # Bowel Movements 1 1 - Exam PHYSICAL EXAMINATION: Patient is lying in the bed comfortably, no acute distress, awake alert and oriented.. HEENT: Normocephalic. Neck is supple. Pupils reactive. Nostrils clear. Oral cavity is moist. Ears reveal no drainage. Neck reveals no JVD, carotid bruits, or thyromegaly. CHEST EXAMINATION: Trachea is central. Symmetrical expansion. Right basilar scattered rhonchi Lung gonzalez clear to auscultation and percussion. CARDIAC: Normal S1, S2 with no gallops. No murmurs ABDOMEN: Soft. Bowel sounds normal. No organomegaly. No abdominal bruits. Extremities: reveal no edema. No clubbing or cyanosis Neurologically awake, alert, oriented x2-3 with well-coordinated movements. No focal deficits noted Skin: No rash or skin lesions. Psychiatric: Coperative. Nonsuicidal Musculoskeletal: No joint swelling or deformity. Normal range of motion. - Labs CBC & Chem 7: 08/06/19 05:46 08/06/19 05:46 Labs: Abnormal Lab Results - Last 24 Hours (Table) 08/06/19 08/07/19 08/07/19 Range/Units 20:49 11:57 16:44 POC Glucose (mg/dL) 213 H 163 H 218 H (75-99) mg/dL Microbiology - Last 24 Hours (Table) 08/01/19 15:27 Blood Culture - Final Blood No Growth after 144 hours Assessment and Plan Assessment: New onset atrial fibrillation with rapid regular rate. Acute influenza B infection Sepsis secondary to right lower lobe pneumonia. Patient was febrile tachycardic and hypoxic on admission Acute COPD exacerbation. Acute hypoxic respiratory failure secondary to pneumonia and COPD Cessation. Dementia and failure to thrive GERD Hyperlipidemia Diabetes type 2 nausea and dependent Previous history of smoking Anxiety/depression Chronic diarrhea DVT prophylaxis Plan: Patient was started on Cardizem drip due to new onset atrial fibrillation and cardiology has seen the patient. Rate controlled with Cardizem and apixaban for anticoagulation.. Patient is tolerating oral diet. Encourage oral intake.. Antibiotics in the form of Levaquin. Added Tamiflu. Continue with breathing treatments and IV steroids. IV steroids changed to by mouth. Insulin sliding scale. Continue to follow closely. Further recommendations based on clinical course. Prognosis is guarded with multiple medical problems and comorbid conditions. PTOT consult Time with Patient: Greater than 30
[2019-08-08 06:51] LABS: Glucose,Whole Blood 193 mg/dL (75-99)
[2019-08-08 07:51] LABS: African American GFR (CKD) >90 (>60 ml/min/1.73 sqM); Anion Gap 6 mmol/L; Blood Urea Nitrogen 18 mg/dL (7-17); Calcium 9.1 mg/dL (8.4-10.2); Carbon Dioxide 23 mmol/L (22-30); Chloride 108 mmol/L (98-107); Glucose 178 mg/dL (74-99); Potassium 4.6 mmol/L (3.5-5.1); Sodium 137 mmol/L (137-145)
[2019-08-08 08:00] LABS: Anisocytosis Slight; HCT 32.4 % (34.0-46.0); HGB 10.4 gm/dL (11.4-16.0); Hypochromasia Slight; MCHC 32.3 g/dL (31.0-37.0); MCV 93.1 fL (80.0-100.0); Mean Platelet Volume 7.2; Platelet Count 331 k/uL (150-450); RBC 3.48 m/uL (3.80-5.40); RDW 17.3 % (11.5-15.5); WBC 16.8 k/uL (3.8-10.6)
[2019-08-08] MEDS: IPRATROPIUM-ALBUTEROL 3 ML NEB INHALATION SCH ×4 (08:07→20:33)
[2019-08-08] MEDS: INSULIN ASPART (NovoLOG) 100 UNIT/ML VIAL SQ SCH ×4 (09:44→21:31)
[2019-08-08] MEDS: APIXABAN 2.5 MG TABLET PO SCH ×2 (09:45→21:31)
[2019-08-08] MEDS: POTASSIUM CHLORIDE ER 10 MEQ TAB.ER.PRT PO SCH (09:45)
[2019-08-08] MEDS: DULoxetine HCL 60 MG CAPSULE.DR PO SCH (09:45)
[2019-08-08] MEDS: predniSONE 10 MG TAB PO SCH (09:45)
[2019-08-08] MEDS: PARoxetine 20 MG TAB PO SCH (09:45)
[2019-08-08] MEDS: GABAPENTIN 300 MG CAP PO SCH ×2 (09:45→21:30)
[2019-08-08] MEDS: guaiFENesin 600 MG TABLET.ER PO SCH ×2 (09:46→21:30)
[2019-08-08] MEDS: MAGNESIUM OXIDE 400 MG TAB PO SCH ×2 (09:46→21:30)
[2019-08-08] MEDS: PANTOPRAZOLE 40 MG TABLET PO SCH (09:46)
[2019-08-08 11:40] VITALS: BMI 20.3
[2019-08-08] MEDS: DILTIAZEM ORAL 30 MG TAB PO SCH (11:50)
[2019-08-08] MEDS: SODIUM CHLORIDE 0.9% 1,000 ML IV SCH (11:53)
[2019-08-08 11:58] LABS: Glucose,Whole Blood 147 mg/dL (75-99)
[2019-08-08 12:07] LABS: Band Neutrophils % 2 %; Eosinophils # (M) 0.17 k/uL (0-0.7); Lymphocytes # (M) 2.35 k/uL (1.0-4.8); Metamyelocytes # (M) 0.34 k/uL (0); Metamyelocytes % 2 %; Myelocytes # (M) 0.84 k/uL (0); Myelocytes % 5 %; Neutrophils % (M) 75 %; Nucleated Red Blood Cells 0 /100 WBC (0-0); Total Cells Counted 200
[2019-08-08 12:10] LABS: Poikilocytosis (M) Present; Toxic Granulation Present
[2019-08-08] MEDS: LEVOFLOXACIN 750 MG TAB PO SCH (16:41)
[2019-08-08] MEDS: KETOTIFEN 0.025% OPHTH DROPS 5 ML BTL BOTH EYES SCH ×2 (16:41→21:31)
[2019-08-08 17:01] LABS: Glucose,Whole Blood 206 mg/dL (75-99)
[2019-08-08] MEDS: DILTIAZEM ORAL 60 MG TAB PO SCH ×2 (20:24→21:32)
[2019-08-08 20:53] LABS: Glucose,Whole Blood 209 mg/dL (75-99)
[2019-08-08] MEDS: CALCIUM CARB-VIT D 500MG-200UN 1 EACH TAB PO SCH (21:30)
[2019-08-08] MEDS: SENNOSIDES 8.6 MG TAB PO SCH (21:30)
[2019-08-08] MEDS: PRIMIDONE 50 MG TAB PO SCH (21:30)
[2019-08-08] MEDS: METOPROLOL SUCCINATE (ER) 50 MG TAB.ER.24H PO SCH (21:30)
[2019-08-08] MEDS: PRAVASTATIN SODIUM 40 MG TAB PO SCH (21:31)
--- NOTE | 2019-08-08 23:40 | P.PN ---
Progress Note - Text Progress Note Date: 08/08/19 Interval history: Patient is a 83-year-old female with a known history of with a known history of dementia, adult failure to thrive, diabetes type 2 [id number]-clqyhsszi, hyperlipidemia, COPD, anxiety/depression and previous history of smoking was brought to the hospital from extended care facility with complaints of shortness of breath, fever and tachycardia and hypoxia. . Patient does have underlying dementia and could not provide any history at this time. Patient was found by EMS lying in bed at [facility]. No cough or sputum production. Denied any abdominal pain. No nausea no vomiting. Patient does have chronic diarrhea otherwise. Admitted with A. fib with rapid ventricular rate, acute influenza B infection, sepsis secondary to right lower lobe pneumonia, acute hypoxic respiratory failure, COPD exacerbation. Today-sitting upon a chair. Did tolerate some diet. Breathing is getting better. Did have a bowel movement. Tired. Heart rate goes up to about 130s with activity. Review of systems: Was done for constitutional, cardiovascular, GI, pulmonary. relevant finding as above Active Medications Albuterol/Ipratropium (Duoneb 0.5 Mg-3 Mg/3 Ml Soln) 3 ml INHALATION RT-QID [facility] Last Admin: 08/08/19 20:33 Dose: 3 ml Documented by: Albuterol/Ipratropium (Duoneb 0.5 Mg-3 Mg/3 Ml Soln) 3 ml INHALATION RT-Q2H PRN PRN Reason: Shortness Of Breath Or Wheezing Apixaban (Eliquis) 2.5 mg PO BID [facility] Last Admin: 08/08/19 21:31 Dose: 2.5 mg Documented by: Calcium Carbonate (Oscal 500+D) 1 each PO HS [facility] Last Admin: 08/08/19 21:30 Dose: 1 each Documented by: Diltiazem HCl (Cardizem Oral) 120 mg PO TID [facility] Last Admin: 08/08/19 21:32 Dose: 120 mg Documented by: Duloxetine HCl (Cymbalta) 60 mg PO DAILY [facility] Last Admin: 08/08/19 09:45 Dose: 60 mg Documented by: Gabapentin (Neurontin) 600 mg PO BID [facility] Last Admin: 08/08/19 21:30 Dose: 600 mg Documented by: Guaifenesin (Mucinex) 600 mg PO Q12HR [facility] Last Admin: 08/08/19 21:30 Dose: 600 mg Documented by: Insulin Aspart (Novolog) 0 unit SQ [facility]; Protocol Last Admin: 08/08/19 21:31 Dose: 3 unit Documented by: Ketotifen Fumarate (Zaditor) 1 drops BOTH EYES BID [facility] Last Admin: 08/08/19 21:31 Dose: 1 drops Documented by: Levofloxacin (Levaquin) 750 mg PO Q24H [facility] Last Admin: 08/08/19 16:41 Dose: 750 mg Documented by: Loperamide HCl (Imodium) 8 mg PO DAILY PRN PRN Reason: Diarrhea Magnesium Oxide (Mag-Ox) 400 mg PO BID [facility] Last Admin: 08/08/19 21:30 Dose: 400 mg Documented by: Metoprolol Succinate (Toprol Xl) 50 mg PO [facility] Last Admin: 08/08/19 21:30 Dose: 50 mg Documented by: Miscellaneous Information (Pneumonia Protocol Utilized) 1 each PO ONCE PRN PRN Reason: Per Protocol Pantoprazole Sodium (Protonix) 40 mg PO DAILY [facility] Last Admin: 08/08/19 09:46 Dose: 40 mg Documented by: Paroxetine HCl (Paxil) 40 mg PO DAILY [facility] Last Admin: 08/08/19 09:45 Dose: 40 mg Documented by: Potassium Chloride (K-Dur 10) 10 meq PO DAILY [facility] Last Admin: 08/08/19 09:45 Dose: 10 meq Documented by: Pravastatin Sodium (Pravachol) 40 mg PO [facility] Last Admin: 08/08/19 21:31 Dose: 40 mg Documented by: Prednisone () 20 mg PO DAILY [facility] Last Admin: 08/08/19 09:45 Dose: 20 mg Documented by: Primidone (Mysoline) 100 mg PO [facility] Last Admin: 08/08/19 21:30 Dose: 100 mg Documented by: Senna (Senokot) 8.6 mg PO [facility] Last Admin: 08/08/19 21:30 Dose: 8.6 mg Documented by: On examination: VITAL SIGNS: 96.9, 120, 18, 11 2/66, 92% room air GENERAL APPEARANCE: Sitting up in a chair, awake, tired. HEENT: Normal external appearance of nose and ear. Oral cavity normal EYES: Pupils equal. Conjunctiva normal. NECK: JVD not raised. Mass not palpable. RESPIRATORY: Respiratory effort increased, lungs decreased breath sounds. CARDIOVASCULAR: Irregular heart sounds. No edema. ABDOMEN: Soft. Liver and spleen not palpable. No tenderness. No mass palpable. PSYCHIATRY: Awake, answering simple questions Assessment: -Persistent atrial fibrillation with rapid ventricular rate. Especially with activity -Acute influenza B infection -Right lower lobe pneumonia causing sepsis -Acute COPD exacerbation -Acute hypoxic respiratory failure secondary to pneumonia and COPD -Alzheimer's dementia late onset type -GERD -Hyperlipidemia -Diabetes mellitus type 2 -Anxiety depression otherwise specified -DO NOT RESUSCITATE -Disposition: Return to ECF Plan: We'll check with cardiology to see if any further intervention from them. We'll switch the patient from Levaquin to Omnicef. Other medications to continue. Given patient's age and comorbidities prognosis guarded.
[2019-08-09 06:56] LABS: Glucose,Whole Blood 132 mg/dL (75-99)
[2019-08-09] MEDS: INSULIN ASPART (NovoLOG) 100 UNIT/ML VIAL SQ SCH ×2 (07:12→12:06)
[2019-08-09] MEDS: IPRATROPIUM-ALBUTEROL 3 ML NEB INHALATION SCH ×2 (07:56→11:26)
[2019-08-09 08:28] VITALS: BP 139/64; RESP 16; TEMP 98
[2019-08-09] MEDS: predniSONE 10 MG TAB PO SCH (08:42)
[2019-08-09] MEDS: POTASSIUM CHLORIDE ER 10 MEQ TAB.ER.PRT PO SCH (08:42)
[2019-08-09] MEDS: guaiFENesin 600 MG TABLET.ER PO SCH (08:43)
[2019-08-09] MEDS: PARoxetine 20 MG TAB PO SCH (08:43)
[2019-08-09] MEDS: MAGNESIUM OXIDE 400 MG TAB PO SCH (08:43)
[2019-08-09] MEDS: GABAPENTIN 300 MG CAP PO SCH (08:44)
[2019-08-09] MEDS: PANTOPRAZOLE 40 MG TABLET PO SCH (08:45)
[2019-08-09] MEDS: DULoxetine HCL 60 MG CAPSULE.DR PO SCH (08:45)
[2019-08-09] MEDS: KETOTIFEN 0.025% OPHTH DROPS 5 ML BTL BOTH EYES SCH (08:45)
[2019-08-09] MEDS: APIXABAN 2.5 MG TABLET PO SCH (08:45)
[2019-08-09] MEDS: DILTIAZEM ORAL 60 MG TAB PO SCH (08:46)
[2019-08-09] MEDS ORDERED: CEFDINIR 300 MG CAP PO SCH (09:00)
[2019-08-09 11:34] VITALS: PULSE 73
--- NOTE | 2019-08-09 12:07 | P.DS ---
Providers Date of admission: 08/01/19 16:53 Expected date of discharge: 08/09/19 Attending physician: Shawn Lim Consults: 08/04/19 08:52 Consult Physician Stat Consulting Provider: Kelley Bui Consult Reason/Comments: new onset A Fib Do you want consulting provider notified?: Yes Primary care physician: [facility] Hospital Course: Hospital course: Patient is a 83-year-old female with a known history of with a known history of dementia, failure to thrive, diabetes type 2 [id number], hyperlipidemia, COPD, anxiety/depression and previous history of smoking was brought to the hospital from extended care facility with complaints of shortness of breath, fever and tachycardia and hypoxia. . Patient does have underlying dementia and could not provide any history at this time. Patient was found by EMS lying in bed at [facility]. No cough or sputum production. Denied any abdominal pain. No nausea no vomiting. Patient does have chronic diarrhea otherwise. Admitted with A. fib with rapid ventricular rate, acute influenza B infection, sepsis secondary to right lower lobe pneumonia, acute hypoxic respiratory failure, COPD exacerbation. Patient is treated with antibiotics oxygen bronchodilators. Seen by cardiology. Heart rate does go with activity but that is to be expected. Cannot increase more medications as blood pressure becomes too low. Patient tolerating a diet. Consultations: Cardiology associates On examination: VITAL SIGNS: 98, 72, 16, 139/64, 99% room air GENERAL APPEARpropped up in bed, comfortableT: Normal external appearance of nose and ear. Oral cavity normal EYES: Pupils equal. Conjunctiva normal. NECK: JVD not raised. Mass not palpable. RESPIRATORY: Respiratory effort increased, lungs decreased breath sounds. CARDIOVASCULAR: Irregular heart sounds. No edema. ABDOMEN: Soft. Liver and spleen not palpable. No tenderness. No mass palpable. PSYCHIATRY: Awake, answering simple questions INVESTIGATIONS,: White count section 0.8, hemoglobin 10.4 potassium 4.6 creatinine 0.6 sputum and blood culture negative Discharge diagnosis: -Persistent atrialfibrillation with rapid ventricular rate. Especially with activity -Acute influenza B infection -Right lower lobe pneumonia causing sepsis -Acute COPD exacerbation -Acute hypoxic respiratory failure secondary to pneumonia and COPD -Alzheimer's dementia late onset type -GERD -Hyperlipidemia -Diabetes mellitus type 2 -Anxiety depression otherwise specified -DO NOT RESUSCITATE Disposition: [facility] [place] Patient Condition at Discharge: Stable Plan - Discharge Summary Discharge Rx Participant: No New Discharge Prescriptions: New Diltiazem Oral [Cardizem*] 120 mg PO TID tab Ipratropium-Albuterol Nebulize [Duoneb 0.5 mg-3 mg/3 ml Soln] 3 ml INHALATION TID ampul.neb Apixaban [Eliquis] 2.5 mg PO BID tablet Loperamide [Imodium] 8 mg PO DAILY PRN cap PRN Reason: Diarrhea INSULIN ASPART (NovoLOG) [NovoLOG (formulary)] 0 unit SQ [facility] vial Cefdinir [Omnicef] 300 mg PO BID #10 cap predniSONE 20 mg PO DIRECTED #1 tab Metoprolol Succinate (ER) [Toprol XL] 50 mg PO HS tab.er.24h Continue Magnesium Oxide [Mag-Ox] 400 mg PO BID Linagliptin/Metformin HCl [Jentadueto 2.5 mg-1000 mg Tab] 1 tab PO BID guaiFENesin [Mucinex] 600 mg PO Q12H Azelastine HCl [Optivar 0.05% Ophth Soln] 1 drop BOTH EYES BID Primidone [Mysoline] 100 mg PO HS Pravastatin Sodium [Pravachol] 40 mg PO HS PARoxetine HCL [Paxil] 40 mg PO DAILY Omeprazole 20 mg PO DAILY DULoxetine HCL [Cymbalta] 60 mg PO DAILY Alendronate Sodium [Fosamax] 70 mg PO TU Gabapentin [Neurontin] 600 mg PO BID #6 tab HYDROcodone/APAP 5-325MG [[place] 5-325] 1 tab PO Q8H PRN #6 tab PRN Reason: Pain Discontinued Gabapentin [Neurontin] 100 mg PO BID Tiotropium Sanders [Spiriva] 1 cap INHALATION RT-HS Metoprolol Succinate [Toprol XL] 25 mg PO HS Loperamide [Imodium] 8 mg PO DAILY Calcium Carbonate/Vitamin D3 [Calcium 600-Vit D3 200 Tablet] 1 tab PO HS Aspirin EC [Ecotrin Low Dose] 81 mg PO DAILY Discharge Medication List Alendronate Sodium [Fosamax] 70 mg PO TU 08/01/19 [History] Azelastine HCl [Optivar 0.05% Ophth Soln] 1 drop BOTH EYES BID 08/01/19 [History] DULoxetine HCL [Cymbalta] 60 mg PO DAILY 08/01/19 [History] Linagliptin/Metformin HCl [Jentadueto 2.5 mg-1000 mg Tab] 1 tab PO BID 08/01/19 [History] Magnesium Oxide [Mag-Ox] 400 mg PO BID 08/01/19 [History] Omeprazole 20 mg PO DAILY 08/01/19 [History] PARoxetine HCL [Paxil] 40 mg PO DAILY 08/01/19 [History] Pravastatin Sodium [Pravachol] 40 mg PO HS 08/01/19 [History] Primidone [Mysoline] 100 mg PO HS 08/01/19 [History] guaiFENesin [Mucinex] 600 mg PO Q12H 08/01/19 [History] Apixaban [Eliquis] 2.5 mg PO BID tablet 08/09/19 [Rx] Cefdinir [Omnicef] 300 mg PO BID #10 cap 08/09/19 [Rx] Diltiazem Oral [Cardizem*] 120 mg PO TID tab 08/09/19 [Rx] Gabapentin [Neurontin] 600 mg PO BID #6 tab 08/09/19 [Rx] HYDROcodone/APAP 5-325MG [[place] 5-325] 1 tab PO Q8H PRN #6 tab 08/09/19 [Rx] INSULIN ASPART (NovoLOG) [NovoLOG (formulary)] 0 unit SQ [facility] vial 08/09/19 [Rx] Ipratropium-Albuterol Nebulize [Duoneb 0.5 mg-3 mg/3 ml Soln] 3 ml INHALATION TID ampul.neb 08/09/19 [Rx] Loperamide [Imodium] 8 mg PO DAILY PRN cap 08/09/19 [Rx] Metoprolol Succinate (ER) [Toprol XL] 50 mg PO HS tab.er.24h 08/09/19 [Rx] predniSONE 20 mg PO DIRECTED #1 tab 08/09/19 [Rx] Follow up Appointment(s)/Referral(s): Gregorio Bhatia DO [Primary Care Provider] - 1-2 days Patient Instructions/Handouts: Dehydration (DC), Fever in Adults (ED), COPD (Chronic Obstructive Pulmonary Disease) (DC)
[2019-08-09 12:13] LABS: Glucose,Whole Blood 169 mg/dL (75-99)
== END 2019-08-09 14:40 | DRG 871 ==
LOC: EC 15:19 → 4SSUR 16:53 → 3SCARD 08-05 23:27 → 4SSUR 08-06 23:51
PROVIDERS: ADMIT Hospitalist; ATTEND Hospitalist
DX: A41.89 Other specified sepsis (principal); J10.00 Influenza due to other identified influenza virus with unspecified type of pneumonia; J18.1 Lobar pneumonia, unspecified organism; J96.01 Acute respiratory failure with hypoxia; J44.0 Chronic obstructive pulmonary disease with (acute) lower respiratory infection; J44.1 Chronic obstructive pulmonary disease with (acute) exacerbation; I48.1 Persistent atrial fibrillation; E86.0 Dehydration; E11.9 Type 2 diabetes mellitus without complications; Z66 Do not resuscitate; R62.7 Adult failure to thrive; E87.6 Hypokalemia; G30.1 Alzheimer's disease with late onset; F02.80 Dementia in other diseases classified elsewhere, unspecified severity, without behavioral disturbance, psychotic disturbance, mood disturbance, and anxiety; I10 Essential (primary) hypertension; R32 Unspecified urinary incontinence; K21.9 Gastro-esophageal reflux disease without esophagitis; E78.5 Hyperlipidemia, unspecified; F41.8 Other specified anxiety disorders; H04.129 Dry eye syndrome of unspecified lacrimal gland; K59.00 Constipation, unspecified; K52.9 Noninfective gastroenteritis and colitis, unspecified; Z79.82 Long term (current) use of aspirin; Z79.83 Long term (current) use of bisphosphonates; Z79.84 Long term (current) use of oral hypoglycemic drugs; Z79.899 Other long term (current) drug therapy; Z87.891 Personal history of nicotine dependence; Z88.0 Allergy status to penicillin; Z88.8 Allergy status to other drugs, medicaments and biological substances; Z87.440 Personal history of urinary (tract) infections
CPT/HCPCS: 36415; 71045; 71046; 80048; 80053; 82550; 83605; 83735; 83880; 84443; 84484; 85025; 85610; 85730; 87040; 87070; 87205; 87502; 93005; 93306; 94640; 94760; 96360; 96365; 96375; 99285

== ENCOUNTER 2020-11-19 16:22 | Inpatient (IN) | payer MEDICARE, OTHER ==
--- NOTE | 2020-11-19 17:00 | ED ---
General Adult HPI - General Chief complaint: Recheck/Abnormal Lab/Rx Stated complaint: tachycardia Time Seen by Provider: 11/19/20 16:33 Source: patient, EMS, RN notes reviewed Mode of arrival: EMS Limitations: no limitations - History of Present Illness Initial comments: Patient is a pleasant 85-year-old female presenting to the emergency Department with tachycardia. Patient has history of atrial fibrillation. Patient admits she has had some fluttering in her chest over the past few days. No chest pain. Currently patient is symptom-free. Patient is on anticoagulation for this. - Related Data Home Medications Medication Instructions Recorded Confirmed Alendronate Sodium [Fosamax] 70 mg PO TU 08/01/19 08/01/19 Azelastine HCl [Optivar 0.05% 1 drop BOTH EYES BID 08/01/19 08/01/19 Ophth Soln] DULoxetine HCL [Cymbalta] 60 mg PO DAILY 08/01/19 08/01/19 Linagliptin/Metformin HCl 1 tab PO BID 08/01/19 08/01/19 [Jentadueto 2.5 mg-1000 mg Tab] Magnesium Oxide [Mag-Ox] 400 mg PO BID 08/01/19 08/01/19 Omeprazole 20 mg PO DAILY 08/01/19 08/01/19 PARoxetine HCL [Paxil] 40 mg PO DAILY 08/01/19 08/01/19 Pravastatin Sodium [Pravachol] 40 mg PO HS 08/01/19 08/01/19 Primidone [Mysoline] 100 mg PO HS 08/01/19 08/01/19 guaiFENesin [Mucinex] 600 mg PO Q12H 08/01/19 08/01/19 Previous Rx's Medication Instructions Recorded Apixaban [Eliquis] 2.5 mg PO BID tablet 08/09/19 Cefdinir [Omnicef] 300 mg PO BID #10 cap 08/09/19 Diltiazem Oral [Cardizem*] 120 mg PO TID tab 08/09/19 Gabapentin [Neurontin] 600 mg PO BID #6 tab 08/09/19 HYDROcodone/APAP 5-325MG [[place] 1 tab PO Q8H PRN #6 tab 08/09/19 5-325] INSULIN ASPART (NovoLOG) [NovoLOG 0 unit SQ ACHS vial 08/09/19 (formulary)] Ipratropium-Albuterol Nebulize 3 ml INHALATION TID ampul.neb 08/09/19 [Duoneb 0.5 mg-3 mg/3 ml Soln] Loperamide [Imodium] 8 mg PO DAILY PRN cap 08/09/19 Metoprolol Succinate (ER) [Toprol 50 mg PO HS tab.er.24h 08/09/19 XL] predniSONE 20 mg PO DIRECTED #1 tab 08/09/19 Allergies Allergy/AdvReac Type Severity Reaction Status Date / Time amoxicillin Allergy Unknown Verified 08/01/19 17:00 niacin Allergy Unknown Verified 08/01/19 17:00 [From Niaspan Extended-Release] Penicillins Allergy Unknown Verified 08/01/19 17:00 Review of Systems ROS Statement: Those systems with pertinent positive or pertinent negative responses have been documented in the HPI. ROS Other: All systems not noted in ROS Statement are negative. Constitutional: Denies: fever Eyes: Denies: eye pain ENT: Denies: ear pain Respiratory: Reports: cough (Occasional). Denies: dyspnea Cardiovascular: Reports: palpitations. Denies: chest pain Endocrine: Denies: fatigue Gastrointestinal: Denies: abdominal pain Genitourinary: Denies: dysuria Musculoskeletal: Denies: back pain Skin: Denies: rash Neurological: Denies: weakness Past Medical History Past Medical History: COPD, Diabetes Mellitus, GERD/Reflux, Hyperlipidemia Additional Past Medical History / Comment(s): adult failure to thrive, dry eye History of Any Multi-Drug Resistant Organisms: None Reported Past Surgical History: No Surgical Hx Reported Past Anesthesia/Blood Transfusion Reactions: No Reported Reaction Past Psychological History: Anxiety, Depression Smoking Status: Never smoker Past Alcohol Use History: None Reported Past Drug Use History: None Reported - Past Family History Mother History Unknown: Yes Father History Unknown: Yes General Exam Limitations: no limitations General appearance: alert, in no apparent distress Head exam: Present: normocephalic Eye exam: Present: normal appearance Neck exam: Present: normal inspection Respiratory exam: Present: normal lung sounds bilaterally Cardiovascular Exam: Present: tachycardia Expanded Peripheral pulses: 2+: Radial (R), Radial (L) GI/Abdominal exam: Present: soft. Absent: tenderness Extremities exam: Present: normal inspection. Absent: pedal edema, calf tenderness Neurological exam: Present: alert Psychiatric exam: Present: normal affect, normal mood Skin exam: Present: normal color Course Vital Signs 11/19/20 11/19/20 16:32 18:17 Temperature 99.2 F 98.6 F Pulse Rate 137 H 124 H Respiratory 20 18 Rate Blood Pressure 113/103 115/85 O2 Sat by Pulse 97 97 Oximetry EKG Findings - EKG Comments: EKG Findings:: Atrial flutter with a 2-1 conduction with a rate of 136. QRS 66. QT 264. QTC 397. Normal axis. Normal QRS. Nonspecific ST-T. Medical Decision Making - Medical Decision Making Patient reevaluated and updated. Case was crusted with Dr. Lim, who will admit covering for Dr. Bhatia - Lab Data Result diagrams: 11/19/20 17:30 11/19/20 17:30 Lab Results 11/19/20 11/19/20 11/19/20 Range/Units 17:30 17:30 17:30 WBC 8.5 (3.8-10.6) k/uL RBC 3.75 L (3.80-5.40) m/uL Hgb 11.7 (11.4-16.0) gm/dL Hct 34.8 (34.0-46.0) % MCV 92.7 (80.0-100.0) fL MCH 31.2 (25.0-35.0) pg MCHC 33.7 (31.0-37.0) g/dL RDW 15.5 (11.5-15.5) % Plt Count 383 (150-450) k/uL MPV 7.7 Neutrophils % 58 % Lymphocytes % 29 % Monocytes % 6 % Eosinophils % 4 % Basophils % 1 % Neutrophils # 5.0 (1.3-7.7) k/uL Lymphocytes # 2.5 (1.0-4.8) k/uL Monocytes # 0.5 (0-1.0) k/uL Eosinophils # 0.4 (0-0.7) k/uL Basophils # 0.1 (0-0.2) k/uL PT 10.2 (9.0-12.0) sec INR 0.9 (<1.2) APTT 23.2 (22.0-30.0) sec Sodium 141 (137-145) mmol/L Potassium 5.1 (3.5-5.1) mmol/L Chloride 110 H (98-107) mmol/L Carbon Dioxide 22 (22-30) mmol/L Anion Gap 9 mmol/L BUN 17 (7-17) mg/dL Creatinine 0.61 (0.52-1.04) mg/dL Est GFR (CKD-EPI)AfAm >90 (>60 ml/min/1.73 sqM) Est GFR (CKD-EPI)NonAf 84 (>60 ml/min/1.73 sqM) Glucose 105 H (74-99) mg/dL Calcium 9.9 (8.4-10.2) mg/dL Magnesium 1.8 (1.6-2.3) mg/dL Total Bilirubin 0.5 (0.2-1.3) mg/dL AST 54 H (14-36) U/L ALT 46 H (4-34) U/L Alkaline Phosphatase 74 (38-126) U/L Troponin I (0.000-0.034) ng/mL Total Protein 7.0 (6.3-8.2) g/dL Albumin 4.1 (3.5-5.0) g/dL TSH 0.713 (0.465-4.680) mIU/L Free T4 1.07 (0.78-2.19) ng/dL Free T3 pg/mL 2.9 (2.8-5.3) pg/ml Urine Color Urine Appearance (Clear) Urine pH (5.0-8.0) Ur Specific [place] (1.001-1.035) Urine Protein (Negative) Urine Glucose (UA) (Negative) Urine Ketones (Negative) Urine Blood (Negative) Urine Nitrite (Negative) Urine Bilirubin (Negative) Urine Urobilinogen (<2.0) mg/dL Ur Leukocyte Esterase (Negative) Urine RBC (0-5) /hpf Urine WBC (0-5) /hpf Urine WBC Clumps (None) /hpf Ur Squamous Epith Cells (0-4) /hpf Urine Bacteria (None) /hpf Urine Mucus (None) /hpf Urine Yeast (Budding) (None) /hpf Coronavirus (PCR) (Not Detectd) 11/19/20 11/19/20 11/19/20 Range/Units 17:30 17:30 17:30 WBC (3.8-10.6) k/uL RBC (3.80-5.40) m/uL Hgb (11.4-16.0) gm/dL Hct (34.0-46.0) % MCV (80.0-100.0) fL MCH (25.0-35.0) pg MCHC (31.0-37.0) g/dL RDW (11.5-15.5) % Plt Count (150-450) k/uL MPV Neutrophils % % Lymphocytes % % Monocytes % % Eosinophils % % Basophils % % Neutrophils # (1.3-7.7) k/uL Lymphocytes # (1.0-4.8) k/uL Monocytes # (0-1.0) k/uL Eosinophils # (0-0.7) k/uL Basophils # (0-0.2) k/uL PT (9.0-12.0) sec INR (<1.2) APTT (22.0-30.0) sec Sodium (137-145) mmol/L Potassium (3.5-5.1) mmol/L Chloride (98-107) mmol/L Carbon Dioxide (22-30) mmol/L Anion Gap mmol/L BUN (7-17) mg/dL Creatinine (0.52-1.04) mg/dL Est GFR (CKD-EPI)AfAm (>60 ml/min/1.73 sqM) Est GFR (CKD-EPI)NonAf (>60 ml/min/1.73 sqM) Glucose (74-99) mg/dL Calcium (8.4-10.2) mg/dL Magnesium (1.6-2.3) mg/dL Total Bilirubin (0.2-1.3) mg/dL AST (14-36) U/L ALT (4-34) U/L Alkaline Phosphatase (38-126) U/L Troponin I <0.012 (0.000-0.034) ng/mL Total Protein (6.3-8.2) g/dL Albumin (3.5-5.0) g/dL TSH (0.465-4.680) mIU/L Free T4 (0.78-2.19) ng/dL Free T3 pg/mL (2.8-5.3) pg/ml Urine Color Light Yellow Urine Appearance Cloudy H (Clear) Urine pH 5.0 (5.0-8.0) Ur Specific [place] 1.007 (1.001-1.035) Urine Protein Negative (Negative) Urine Glucose (UA) Negative (Negative) Urine Ketones Negative (Negative) Urine Blood Negative (Negative) Urine Nitrite Positive H (Negative) Urine Bilirubin Negative (Negative) Urine Urobilinogen <2.0 (<2.0) mg/dL Ur Leukocyte Esterase Large H (Negative) Urine RBC 1 (0-5) /hpf Urine WBC 10 H (0-5) /hpf Urine WBC Clumps Few H (None) /hpf Ur Squamous Epith Cells 2 (0-4) /hpf Urine Bacteria Many H (None) /hpf Urine Mucus Rare H (None) /hpf Urine Yeast (Budding) Rare H (None) /hpf Coronavirus (PCR) Not Detected (Not Detectd) - Radiology Data Radiology results: image reviewed (Chest x-ray does not reveal acute process. Shoulder x-ray shows arthritis) Critical Care Time Critical Care Time: Yes Total Critical Care Time: 33 Disposition Clinical Impression: Atrial flutter with rapid ventricular response Disposition: ADMITTED IP TO THIS HOSP Is patient prescribed a controlled substance at d/c from ED?: No Referrals: Gregorio Bhatia DO [Primary Care Provider] - 1-2 days Decision Time: 19:16
[2020-11-19] MEDS ORDERED: DILTIAZEM 125 MG in SODIUM CHLORIDE 0.9% 100 ML IV SCH (17:30)
[2020-11-19 17:45] LABS: Basophils # (A) 0.1 k/uL (0-0.2); Basophils % (A) 1 %; Eosinophils # (A) 0.4 k/uL (0-0.7); Eosinophils % (A) 4 %; HCT 34.8 % (34.0-46.0); HGB 11.7 gm/dL (11.4-16.0); Lymphocytes # (A) 2.5 k/uL (1.0-4.8); Lymphocytes % (A) 29 %; MCH 31.2 pg (25.0-35.0); MCHC 33.7 g/dL (31.0-37.0); MCV 92.7 fL (80.0-100.0); Mean Platelet Volume 7.7; Monocytes # (A) 0.5 k/uL (0-1.0); Monocytes % (A) 6 %; Neutrophils % (A) 58 %; Platelet Count 383 k/uL (150-450); RBC 3.75 m/uL (3.80-5.40); RDW 15.5 % (11.5-15.5); WBC 8.5 k/uL (3.8-10.6)
[2020-11-19 17:55] LABS: INR 0.9 (<1.2); Partial Thromboplastin Time 23.2 sec (22.0-30.0); Prothrombin Time 10.2 sec (9.0-12.0)
[2020-11-19 17:57] LABS: ALT 46 U/L (4-34); AST 54 U/L (14-36); African American GFR (CKD) >90 (>60 ml/min/1.73 sqM); Albumin 4.1 g/dL (3.5-5.0); Alkaline Phosphatase 74 U/L (38-126); Anion Gap 9 mmol/L; Blood Urea Nitrogen 17 mg/dL (7-17); Calcium 9.9 mg/dL (8.4-10.2); Carbon Dioxide 22 mmol/L (22-30); Chloride 110 mmol/L (98-107); Glucose 105 mg/dL (74-99); Magnesium 1.8 mg/dL (1.6-2.3); Non-African American GFR(CKD) 84 (>60 ml/min/1.73 sqM); Potassium 5.1 mmol/L (3.5-5.1); Sodium 141 mmol/L (137-145); Total Bilirubin 0.5 mg/dL (0.2-1.3)
--- NOTE | 2020-11-19 18:00 | XR ---
EXAMINATION TYPE: XR shoulder complete LT DATE OF EXAM: 11/19/2020 COMPARISON: NONE HISTORY: Shoulder pain TECHNIQUE: 3 views FINDINGS: There is narrowing of the glenohumeral joint space. There is moderate spurring. I see no fr acture nor dislocation. AC joint is intact. 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 No fracture.
--- NOTE | 2020-11-19 18:02 | XR ---
EXAMINATION TYPE: XR chest 2V DATE OF EXAM: 11/19/2020 COMPARISON: 08/05/2019 HISTORY: Dysrhythmia TECHNIQUE: FINDINGS: Heart is normal. Lungs are clear of consolidation. There are no hilar masses. There is slig ht blunting right costophrenic angle. Thoracic aorta is atheromatous. There is right shoulder prosthe sis. There is moderate arthritis in the left shoulder joint. IMPRESSION: There is minimal pleural reaction or scarring at the lateral right lung base unchanged. N o heart failure. No acute lung disease.
[2020-11-19 18:13] LABS: T4, Free (Free Thyroxine) 1.07 ng/dL (0.78-2.19)
[2020-11-19 19:05] LABS: Appearance,Urine Cloudy (Clear); Bacteria,Urine Many /hpf; Bilirubin,Urine Negative (Negative); Blood,Urine Negative (Negative); Budding Yeast,Urine Rare /hpf; Color,Urine Light Yellow; Glucose,Urine (UA) Negative (Negative); Ketones,Urine Negative (Negative); Leukocyte Esterase,Urine Large (Negative); Mucus,Urine Rare /hpf; Nitrite,Urine Positive (Negative); Protein,Urine Negative (Negative); RBC,Urine 1 /hpf (0-5); Specific Gravity,Urine 1.007 (1.001-1.035); Squamous Epithelial Cell,Urine 2 /hpf (0-4); Urobilinogen,Urine <2.0 mg/dL (<2.0); WBC,Urine 10 /hpf (0-5)
[2020-11-19] MEDS ORDERED: NALOXONE 0.4 MG/ML 1 ML VIAL IV PRN (19:17)
[2020-11-19] MEDS: SULFAMETHOX-TMP 800-160MG 1 EACH TAB PO SCH (22:01)
[2020-11-20] MEDS: PARoxetine 10 MG TAB PO SCH ×2 (02:38→20:54)
[2020-11-20 05:57] LABS: Glucose,Whole Blood 141 mg/dL (75-99)
[2020-11-20] MEDS: INSULIN ASPART (NovoLOG) 100 UNIT/ML VIAL SQ SCH ×4 (06:34→20:40)
[2020-11-20] MEDS: PANTOPRAZOLE 40 MG TABLET PO SCH (06:38)
[2020-11-20] MEDS: APIXABAN 2.5 MG TABLET PO SCH ×2 (06:38→20:54)
[2020-11-20] MEDS: MAGNESIUM OXIDE 400 MG TAB PO SCH ×2 (06:38→20:53)
[2020-11-20] MEDS: MULTIVITAMINS, THERA 1 EACH TAB PO SCH (06:38)
[2020-11-20] MEDS: GABAPENTIN 300 MG CAP PO SCH ×2 (06:38→20:54)
[2020-11-20] MEDS: CHOLECALCIFEROL 1,000 UNIT TAB PO SCH (06:38)
[2020-11-20] MEDS: metFORMIN 500 MG TAB PO SCH ×2 (06:39→20:54)
[2020-11-20] MEDS: LINAGLIPTIN 5 MG TABLET PO SCH ×2 (06:39→20:53)
[2020-11-20] MEDS ORDERED: METOPROLOL SUCCINATE (ER) 25 MG TAB.ER.24H PO SCH (08:00)
[2020-11-20] MEDS: METOPROLOL SUCCINATE (ER) 50 MG TAB.ER.24H PO SCH (09:06)
[2020-11-20] MEDS: DILTIAZEM ORAL 60 MG TAB PO SCH ×3 (09:06→17:20)
[2020-11-20] MEDS: SULFAMETHOX-TMP 800-160MG 1 EACH TAB PO SCH ×2 (09:06→21:25)
--- NOTE | 2020-11-20 10:22 | P.CRDCN ---
History of Present Illness History of present illness: HISTORY OF PRESENTING ILLNESS This is a pleasant 85-year-old female past medical history significant for chronic persistent atrial fibrillation on long-term anticoagulation, COPD, diabetes mellitus, dyslipidemia and former nicotine dependence. 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 She was in the hospital in 2019 and diagnosed at that time with new-onset atrial fibrillation. We have been asked to see in consultation for atrial fibrillation. She states for the previous couple of days she has been feeling an achy sensation in the left shoulder. According to her she had no symptoms of chest pain or palpitations. Her vital signs were obtained at the [facility] where she lives in her heart rate is noted to be 140 prompting ER admission. EKG on arrival revealed atrial flutter with a 2:1 conduction with heart rate of 136. She was initiated on IV Cardizem. Chest x-ray reveals minimal pleural reaction and scarring and lateral right lung base with no acute heart failure or cardiopulmonary process. Laboratory data reviewed, WBC 8.5, hemoglobin 11.7, platelets 393, sodium 141, potassium 5.1, creatinine 0.61, magnesium 1.8, troponin negative 1, TSH 0.713, free T4 1 0.07 and free T3 2 0.9. Current daily cardiac medications include Eliquis 2.5 mg twice a day, Toprol 25 mg daily, pravastatin 40 mg daily and diltiazem 120 mg 3 times a day. Most recent echocardiogram obtained July 2019 reveals preserved LV systolic function with ejection fraction 50-55%. REVIEW OF SYSTEMS At the time of my exam: CONSTITUTIONAL: Denies fever or chills. CARDIOVASCULAR: Denies chest pain, shortness of breath, orthopnea, PND or palpitations. RESPIRATORY: Denies cough. GASTROINTESTINAL: Denies abdominal pain, diarrhea, constipation, nausea or vomiting. MUSCULOSKELETAL: Denies myalgias. NEUROLOGIC: Denies numbness, tingling or weakness. ENDOCRINE: Denies fatigue, weight change, polydipsia or polyurina. GENITOURINARY: Denies burning, hematuria or urgency with micturation. HEMATOLOGIC: Denies history of anemia or bleeding. PHYSICAL EXAMINATION Blood pressure 122/75 heart rate 129 afebrile and maintaining oxygen saturation on nasal cannula. CONSTITUTIONAL: No apparent distress. HEENT: Head is normocephalic. Pupils are equal, round. Sclerae anicteric. Mucous membranes of the mouth are moist. No JVD. No carotid bruit. CHEST EXAMINATION: Lungs are clear to auscultation. No chest wall tenderness is noted on palpation or with deep breathing. HEART EXAMINATION: Irregular rate and rhythm. S1, S2 heard. No murmurs, gallops or rub. ABDOMEN: Soft, nontender. Positive bowel sounds. EXTREMITIES: 2+ peripheral pulses, no lower extremity edema and no calf tenderness. NEUROLOGIC EXAMINATION: Patient is awake, alert and oriented x3. ASSESSMENT Chronic persistent atrial fibrillation with rapid ventricular rate COPD Diabetes mellitus Dyslipidemia PLAN Resume oral Cardizem and increase Toprol to 50 mg daily. Continue Eliquis as previously ordered for thromboembolic protection. Further recommendations to follow based upon clinical course. Thank you kindly for this consultation. Nurse Practitioner note has been reviewed, I agree with a documented findings and plan of care. Patient was seen and examined. Past Medical History Past Medical History: COPD, Diabetes Mellitus, GERD/Reflux, Hyperlipidemia Additional Past Medical History / Comment(s): adult failure to thrive, dry eye History of Any Multi-Drug Resistant Organisms: None Reported Past Surgical History: No Surgical Hx Reported Past Anesthesia/Blood Transfusion Reactions: No Reported Reaction Past Psychological History: Anxiety, Depression Smoking Status: Former smoker Past Alcohol Use History: None Reported Past Drug Use History: None Reported - Past Family History Mother History Unknown: Yes Father History Unknown: Yes Medications and Allergies Home Medications Medication Instructions Recorded Confirmed Type DULoxetine HCL [Cymbalta] 60 mg PO DAILY@1600 08/01/19 11/19/20 History Linagliptin/Metformin HCl 1 tab PO BID@07,199908/01/19 11/19/20 History [Jentadueto 2.5 mg-1000 mg Tab] Magnesium Oxide [Mag-Ox] 400 mg PO BID@0700,199908/01/19 11/19/20 History Omeprazole 20 mg PO DAILY@0700 08/01/19 11/19/20 History Pravastatin Sodium [Pravachol] 40 mg PO HS@199908/01/19 11/19/20 History Primidone [Mysoline] 100 mg PO HS@199908/01/19 11/19/20 History HYDROcodone/APAP 5-325MG [[place] 1 tab PO Q8H PRN #6 tab 08/09/19 11/19/20 Rx 5-325] Apixaban [Eliquis] 2.5 mg PO BID@07,199911/19/20 11/19/20 History Cholecalciferol [Vitamin D3 (25 2,000 unit PO DAILY@0600 11/19/20 11/19/20 History Mcg = 1000 Iu)] Diltiazem HCl 120 mg PO TID@0700,1200,1800 11/19/20 11/19/20 History Gabapentin [Neurontin] 600 mg PO BID@699,199911/19/20 11/19/20 History Loperamide [Imodium] 4 mg PO DAILY PRN 11/19/20 11/19/20 History Metoprolol Succinate [Toprol XL] 25 mg PO DAILY@0800 11/19/20 11/19/20 History Multivitamins, Thera [Multivitamin 1 tab PO DAILY@0600 11/19/20 11/19/20 History (formulary)] PARoxetine HCL [Paxil] 10 mg PO HS@199911/19/20 11/19/20 History Allergies Allergy/AdvReac Type Severity Reaction Status Date / Time amoxicillin Allergy Unknown Verified 11/19/20 19:20 niacin Allergy Unknown Verified 11/19/20 19:20 [From Niaspan Extended-Release] Penicillins Allergy Unknown Verified 11/19/20 19:20 Physical Exam Vitals: Vital Signs Temp Pulse Pulse Resp BP BP Pulse Ox 11/20/20 04:00 128 H 16 126/73 98 11/20/20 02:19 98.7 F 128 H 16 126/75 98 11/19/20 22:00 139 H 16 120/75 97 11/19/20 19:24 62 18 102/86 97 11/19/20 18:17 98.6 F 124 H 18 115/85 97 11/19/20 16:32 99.2 F 137 H 20 113/103 97 Intake and Output 11/19/20 11/20/20 11/20/20 22:59 06:59 14:59 Intake Total 9.5 Balance 9.5 Intake: Intake, IV Titration 9.5 Amount Diltiazem 125 mg In 9.5 Sodium Chloride 0.9% 100 ml @ 5 MG/HR 5 mls/hr IV .Q24H [facility] Rx#:[id number] Other: Weight 58.967 kg 49.8 kg Results 11/19/20 17:30 11/19/20 17:30 Cardiac Enzymes 11/19/20 11/19/20 Range/Units 17:30 17:30 AST 54 H (14-36) U/L Troponin I <0.012 (0.000-0.034) ng/mL Coagulation 11/19/20 Range/Units 17:30 PT 10.2 (9.0-12.0) sec APTT 23.2 (22.0-30.0) sec CBC 11/19/20 Range/Units 17:30 WBC 8.5 (3.8-10.6) k/uL RBC 3.75 L (3.80-5.40) m/uL Hgb 11.7 (11.4-16.0) gm/dL Hct 34.8 (34.0-46.0) % Plt Count 383 (150-450) k/uL Comprehensive Metabolic Panel 11/19/20 Range/Units 17:30 Sodium 141 (137-145) mmol/L Potassium 5.1 (3.5-5.1) mmol/L Chloride 110 H (98-107) mmol/L Carbon Dioxide 22 (22-30) mmol/L BUN 17 (7-17) mg/dL Creatinine 0.61 (0.52-1.04) mg/dL Glucose 105 H (74-99) mg/dL Calcium 9.9 (8.4-10.2) mg/dL AST 54 H (14-36) U/L ALT 46 H (4-34) U/L Alkaline Phosphatase 74 (38-126) U/L Total Protein 7.0 (6.3-8.2) g/dL Albumin 4.1 (3.5-5.0) g/dL Current Medications Generic Name Dose Route Start Last Admin Trade Name Freq PRN Reason Stop Dose Admin Hydrocodone Bitart/Acetaminophen 1 each 11/19/20 23:10 Hydrocodone/Apap 5-325mg 1 Each Tab PO Q8H PRN Pain Apixaban 2.5 mg 11/20/20 07:00 11/20/20 06:38 Apixaban 2.5 Mg Tablet PO 2.5 mg BID@0700,2000 KRISTIE Administration Cholecalciferol 2,000 unit 11/20/20 06:00 11/20/20 06:38 Cholecalciferol 1,000 Unit Tab PO 2,000 unit DAILY@0600 [facility] Administration Duloxetine HCl 60 mg 11/20/20 16:00 Duloxetine Hcl 60 Mg Capsule.Dr PO DAILY@1600 [facility] Gabapentin 600 mg 11/20/20 07:00 11/20/20 06:38 Gabapentin 300 Mg Cap PO 600 mg BID@ [facility] Administration Diltiazem HCl 125 mg/ Sodium 125 mls @ 5 mls/hr 11/19/20 17:30 11/19/20 22:03 Chloride IV 5 mg/hr .Q24H [facility] 5 mls/hr Infusion 5 MG/HR Insulin Aspart 0 unit 11/20/20 07:30 11/20/20 06:34 Insulin Aspart (Novolog) 100 Unit/Ml Vial SQ Not Given ACHS [facility] Protocol Linagliptin 2.5 mg 11/20/20 07:00 11/20/20 06:39 Linagliptin 5 Mg Tablet PO 2.5 mg BID@ [facility] Administration Loperamide HCl 4 mg 11/20/20 09:00 Loperamide 2 Mg Cap PO DAILY PRN Diarrhea Magnesium Oxide 400 mg 11/20/20 07:00 11/20/20 06:38 Magnesium Oxide 400 Mg Tab PO 400 mg BID@ [facility] Administration Metformin HCl 1,000 mg 11/20/20 07:00 11/20/20 06:39 Metformin 500 Mg Tab PO 1,000 mg BID@ [facility] Administration Metoprolol Succinate 50 mg 11/20/20 09:00 Metoprolol Succinate (Er) 50 Mg Tab.Er.24h PO DAILY [facility] Multivitamins 1 each 11/20/20 06:00 11/20/20 06:38 Multivitamins, Thera 1 Each Tab PO 1 each DAILY@0600 [facility] Administration Naloxone HCl 0.2 mg 11/19/20 19:17 Naloxone 0.4 Mg/Ml 1 Ml Vial IV Q2M PRN Opioid Reversal Non-Formulary Medication 120 mg 11/20/20 08:10 Diltiazem Hcl [Diltiazem Hcl] PO TID@0700,1200,1800 [facility] Pantoprazole Sodium 40 mg 11/20/20 07:00 11/20/20 06:38 Pantoprazole 40 Mg Tablet PO 40 mg DAILY@0700 [facility] Administration Paroxetine HCl 10 mg 11/19/20 20:00 11/20/20 02:38 Paroxetine 10 Mg Tab PO Not Given HS@2000 [facility] Pravastatin Sodium 40 mg 11/20/20 20:00 Pravastatin Sodium 40 Mg Tab PO HS@1999 [facility] Primidone 100 mg 11/20/20 20:00 Primidone 50 Mg Tab PO HS@1999 [facility] Trimethoprim/Sulfamethoxazole 1 each 11/19/20 21:00 11/19/20 22:01 Sulfamethox-Tmp 800-160mg 1 Each Tab PO 1 each BID [facility] Administration Intake and Output 11/19/20 11/20/20 11/20/20 22:59 06:59 14:59 Intake Total 9.5 Balance 9.5 Intake: Intake, IV Titration 9.5 Amount Diltiazem 125 mg In 9.5 Sodium Chloride 0.9% 100 ml @ 5 MG/HR 5 mls/hr IV .Q24H [facility] Rx#:[id number] Other: Weight 58.967 kg 49.8 kg 11/19/20 17:30 11/19/20 17:30
[2020-11-20 12:01] LABS: Glucose,Whole Blood 134 mg/dL (75-99)
[2020-11-20 14:05] LABS: Hemoglobin A1C 6.5 % (4.0-6.0)
[2020-11-20] MEDS: DULoxetine HCL 60 MG CAPSULE.DR PO SCH (15:45)
[2020-11-20 16:56] LABS: Glucose,Whole Blood 150 mg/dL (75-99)
--- NOTE | 2020-11-20 19:46 | P.HPIM ---
History of Present Illness H&P Date: 11/20/20 Chief Complaint: Palpitation History of presenting complaint: Patient is a 85-year-old female with a known history of with a known history of dementia, , diabetes type 2 erv-tnkmnrg-bjyrmndmf, hyperlipidemia, COPD, anxiety/depression and previous history of smoking was brought to the hospital from extended care facility with complaints of shortness of breath, fever and tachycardia and hypoxia. . Patient does have underlying dementia . EMS was called out to the [facility] for increased heart rate. Per the nursing staff heart rate was about 150 this morning. Some medications given with Dr. cali remained above 100. Patient didn't notice to be short of breath having some pa lpitations.. He went uses a wheelchair. Not the best of historians. Review of systems: GEN.: Tired EYES: None HEENT: Decreased hearing NECK: None RESPIRATORY: Some shortness of breath CARDIOVASCULAR: Palpitation GASTROINTESTINAL: None GENITOURINARY: None MUSCULOSKELETAL: Joint pain] LYMPHATICS: None HEMATOLOGICAL: None PSYCHIATRY: None NEUROLOGICAL: Forgetful and does use a wheelchair Past medical history to include: Dementia, diabetes type 2, hyperlipidemia, COPD, anxiety depression, Social history: Currently resident at [facility]. Former smoker. No alcohol. Family history: Patient does not remember On examination: VITAL SIGNS: 99.2, 137, 20, 113/103, 97% room air-upon presentation GENERAL APPEARANCE: Propped up in bed, a bit tired and short of breath. Eating HEENT: Normal external appearance of nose and ear. Oral cavity normal, decreased hearing EYES: Pupils equal. Conjunctiva normal. NECK: JVD not raised. Mass not palpable. RESPIRATORY: Respiratory effort increased, lungs decreased breath sounds. CARDIOVASCULAR: Irregular heart sounds. No edema. ABDOMEN: Soft. Liver and spleen not palpable. No tenderness. No mass palpable. LYMPHATICS: No lymph nodes palpable in the neck and axilla PSYCHIATRY: Awake, answering simple questions Investigations: White count 8.5 hemoglobin 11.7 platelets 323 potassium 5.1 creatinine 0.61 UA positive for nitrite, leukoesterase EKG tracing atrial flutter with [address] segment changes Chest x-ray film personally reviewed by me-lung gonzalez clear Assessment: -Persistent atrial fibrillation with rapid ventricular rate. POA -Acute COPD exacerbation -Alzheimer's dementia late onset type -GERD -Hyperlipidemia -Diabetes mellitus type 2, on oral hypoglycemic -Anxiety depression otherwise specified -Acute UTI with cystitis -DO NOT RESUSCITATE Plan: Patient put on oral Cardizem. Toprol-XL. Continue eliquis. Accu-Cheks will be followed. Care was discussed with the patient. Cardiogenic consulted. Add Keflex for UTI Past Medical History Past Medical History: COPD, Diabetes Mellitus, GERD/Reflux, Hyperlipidemia Additional Past Medical History / Comment(s): adult failure to thrive, dry eye History of Any Multi-Drug Resistant Organisms: None Reported Past Surgical History: No Surgical Hx Reported Past Anesthesia/Blood Transfusion Reactions: No Reported Reaction Past Psychological History: Anxiety, Depression Smoking Status: Former smoker Past Alcohol Use History: None Reported Past Drug Use History: None Reported - Past Family History Mother History Unknown: Yes Father History Unknown: Yes Medications and Allergies Home Medications Medication Instructions Recorded Confirmed Type DULoxetine HCL [Cymbalta] 60 mg PO DAILY@1600 08/01/19 11/19/20 History Linagliptin/Metformin HCl 1 tab PO BID@0700,199908/01/19 11/19/20 History [Jentadueto 2.5 mg-1000 mg Tab] Magnesium Oxide [Mag-Ox] 400 mg PO BID@0700,199908/01/19 11/19/20 History Omeprazole 20 mg PO DAILY@0700 08/01/19 11/19/20 History Pravastatin Sodium [Pravachol] 40 mg PO HS@199908/01/19 11/19/20 History Primidone [Mysoline] 100 mg PO HS@199908/01/19 11/19/20 History HYDROcodone/APAP 5-325MG [[place] 1 tab PO Q8H PRN #6 tab 08/09/19 11/19/20 Rx 5-325] Apixaban [Eliquis] 2.5 mg PO BID@0700,199911/19/20 11/19/20 History Cholecalciferol [Vitamin D3 (25 2,000 unit PO DAILY@0600 11/19/20 11/19/20 History Mcg = 1000 Iu)] Diltiazem HCl 120 mg PO TID@0700,1200,1800 11/19/20 11/19/20 History Gabapentin [Neurontin] 600 mg PO BID@0700,199911/19/20 11/19/20 History Loperamide [Imodium] 4 mg PO DAILY PRN 11/19/20 11/19/20 History Metoprolol Succinate [Toprol XL] 25 mg PO DAILY@0800 11/19/20 11/19/20 History Multivitamins, Thera [Multivitamin 1 tab PO DAILY@0600 11/19/20 11/19/20 History (formulary)] PARoxetine HCL [Paxil] 10 mg PO HS@199911/19/20 11/19/20 History Allergies Allergy/AdvReac Type Severity Reaction Status Date / Time amoxicillin Allergy Unknown Verified 11/19/20 19:20 niacin Allergy Unknown Verified 11/19/20 19:20 [From Niaspan Extended-Release] Penicillins Allergy Unknown Verified 11/19/20 19:20 Physical Exam Vitals: Vital Signs Temp Pulse Pulse Resp BP BP Pulse Ox 11/20/20 09:05 97.7 F 129 H 16 122/75 99 11/20/20 04:00 128 H 16 126/73 98 11/20/20 02:19 98.7 F 128 H 16 126/75 98 11/19/20 22:00 139 H 16 120/75 97 11/19/20 19:24 62 18 102/86 97 11/19/20 18:17 98.6 F 124 H 18 115/85 97 11/19/20 16:32 99.2 F 137 H 20 113/103 97 Intake and Output 11/19/20 11/20/20 11/20/20 22:59 06:59 14:59 Intake Total 9.5 0 Balance 9.5 0 Intake: Intake, IV Titration 9.5 Amount Diltiazem 125 mg In 9.5 Sodium Chloride 0.9% 100 ml @ 5 MG/HR 5 mls/hr IV .Q24H [facility] Rx#:[id number] Oral 0 Other: Weight 58.967 kg 49.8 kg Results CBC & Chem 7: 11/19/20 17:30 11/19/20 17:30 Labs: Abnormal Lab Results - Last 24 Hours (Table) 11/19/20 11/19/20 11/19/20 Range/Units 17:30 17:30 17:30 RBC 3.75 L (3.80-5.40) m/uL Chloride 110 H (98-107) mmol/L Glucose 105 H (74-99) mg/dL POC Glucose (mg/dL) (75-99) mg/dL AST 54 H (14-36) U/L ALT 46 H (4-34) U/L Urine Appearance Cloudy H (Clear) Urine Nitrite Positive H (Negative) Ur Leukocyte Esterase Large H (Negative) Urine WBC 10 H (0-5) /hpf Urine WBC Clumps Few H (None) /hpf Urine Bacteria Many H (None) /hpf Urine Mucus Rare H (None) /hpf Urine Yeast (Budding) Rare H (None) /hpf 11/20/20 Range/Units 05:55 RBC (3.80-5.40) m/uL Chloride (98-107) mmol/L Glucose (74-99) mg/dL POC Glucose (mg/dL) 141 H (75-99) mg/dL AST (14-36) U/L ALT (4-34) U/L Urine Appearance (Clear) Urine Nitrite (Negative) Ur Leukocyte Esterase (Negative) Urine WBC (0-5) /hpf Urine WBC Clumps (None) /hpf Urine Bacteria (None) /hpf Urine Mucus (None) /hpf Urine Yeast (Budding) (None) /hpf Thrombosis Risk Factor Assmnt - Choose All That Apply Each Factor Represents 1 point: Abnormal pulmonary function (COPD) Other Risk Factors: Yes Each Risk Factor Represents 3 Points: Age 75 years or older Other congenital or acquired thrombophilia - If yes, enter type in comment: No Thrombosis Risk Factor Assessment Total Risk Factor Score: 4 Thrombosis Risk Factor Assessment Level: Moderate Risk
[2020-11-20 20:26] LABS: Glucose,Whole Blood 113 mg/dL (75-99)
[2020-11-20] MEDS: LOPERAMIDE 2 MG CAP PO PRN (20:53)
[2020-11-20] MEDS: PRAVASTATIN SODIUM 40 MG TAB PO SCH (20:54)
[2020-11-20] MEDS: PRIMIDONE 50 MG TAB PO SCH (20:54)
[2020-11-21] MEDS: HYDROcodone/APAP 5-325MG 1 EACH TAB PO PRN ×2 (03:39→20:19)
[2020-11-21] MEDS: INSULIN ASPART (NovoLOG) 100 UNIT/ML VIAL SQ SCH ×4 (05:56→20:21)
[2020-11-21 05:57] LABS: Glucose,Whole Blood 131 mg/dL (75-99)
[2020-11-21] MEDS: DILTIAZEM ORAL 60 MG TAB PO SCH ×2 (05:59→20:21)
[2020-11-21] MEDS: LINAGLIPTIN 5 MG TABLET PO SCH ×2 (06:00→20:18)
[2020-11-21] MEDS: GABAPENTIN 300 MG CAP PO SCH ×2 (06:00→20:19)
[2020-11-21] MEDS: MAGNESIUM OXIDE 400 MG TAB PO SCH ×2 (06:00→20:19)
[2020-11-21] MEDS: PANTOPRAZOLE 40 MG TABLET PO SCH (06:00)
[2020-11-21] MEDS: MULTIVITAMINS, THERA 1 EACH TAB PO SCH (06:00)
[2020-11-21] MEDS: APIXABAN 2.5 MG TABLET PO SCH ×2 (06:00→20:18)
[2020-11-21] MEDS: metFORMIN 500 MG TAB PO SCH ×2 (06:00→20:19)
[2020-11-21] MEDS: CHOLECALCIFEROL 1,000 UNIT TAB PO SCH (06:00)
[2020-11-21] MEDS: METOPROLOL SUCCINATE (ER) 50 MG TAB.ER.24H PO SCH (09:05)
[2020-11-21] MEDS: SULFAMETHOX-TMP 800-160MG 1 EACH TAB PO SCH ×2 (09:05→20:19)
[2020-11-21 12:05] LABS: Glucose,Whole Blood 85 mg/dL (75-99)
--- NOTE | 2020-11-21 12:20 | P.PN ---
Subjective HISTORY OF PRESENTING ILLNESS This is a pleasant 85-year-old female past medical history significant for chronic persistent atrial fibrillation on long-term anticoagulation, COPD, diabetes mellitus, dyslipidemia and former nicotine dependence. She is seen and examined resting comfortably laying flat in bed in no acute distress. She co mplains only of feeling tired. She denies symptoms of chest pain, shortness of breath, dizziness or palpitations. She continues to be in atrial flutter with rates in the 60s to 70s on telemetry. Blood pressure 90/56. PHYSICAL EXAMINATION CONSTITUTIONAL: No apparent distress. HEENT: Head is normocephalic. Pupils are equal, round. Sclerae anicteric. Mucous membranes of the mouth are moist. No JVD. No carotid bruit. CHEST EXAMINATION: Lungs are clear to auscultation. No chest wall tenderness is noted on palpation or with deep breathing. HEART EXAMINATION: Irregular rate and rhythm. S1, S2 heard. No murmurs, gallops or rub. EXTREMITIES: 2+ peripheral pulses, no lower extremity edema and no calf tenderness. ASSESSMENT Chronic persistent atrial fibrillation with rapid ventricular rate COPD Diabetes mellitus Dyslipidemia PLAN Obtain 2-D echocardiogram and Doppler study noted her heart rate controlled. Decrease Cardizem to twice a day. Continue to monitor on telemetry. Further recommendations to follow based upon clinical course. Nurse Practitioner note has been reviewed, I agree with a documented findings and plan of care. Patient was seen and examined. Objective - Vital Signs Vital signs: Vital Signs Temp 97.9 F 11/21/20 08:15 Pulse 62 11/21/20 08:15 Resp 18 11/21/20 08:15 BP 90/56 11/21/20 08:15 Pulse Ox 96 11/21/20 08:15 Intake & Output 11/20/20 11/21/20 11/21/20 18:59 06:59 18:59 Intake Total 605 120 Balance 605 120 Weight 49.8 kg 51 kg Intake: Oral 605 120 Other: Voiding Method Diaper Diaper Diaper Incontinent Incontinent Incontinent # Voids 1 1 0 # Bowel Movements 2 0 - Labs CBC & Chem 7: 11/19/20 17:30 11/19/20 17:30 Labs: Abnormal Lab Results - Last 24 Hours (Table) 11/20/20 11/20/20 11/20/20 Range/Units 07:46 11:37 16:47 POC Glucose (mg/dL) 134 H 150 H (75-99) mg/dL Hemoglobin A1c 6.5 H (4.0-6.0) % 11/20/20 11/21/20 Range/Units 20:24 05:55 POC Glucose (mg/dL) 113 H 131 H (75-99) mg/dL Hemoglobin A1c (4.0-6.0) %
[2020-11-21] MEDS: DULoxetine HCL 60 MG CAPSULE.DR PO SCH (16:28)
[2020-11-21 16:52] LABS: Glucose,Whole Blood 169 mg/dL (75-99)
--- NOTE | 2020-11-21 17:43 | ECHOF ---
Referral Reason:aflutter MEASUREMENTS -------- HEIGHT: 162.6 cm WEIGHT: 50.8 kg BP: 90/56 RVIDd: 3.2 cm (< 3.3) IVSd: 1.1 cm (0.6 - 1.1) LVIDd: 3.5 cm (3.9 - 5.3) LVPWd: 1.1 cm (0.6 - 1.1) IVSs: 1.4 cm LVIDs: 2.5 cm LVPWs: 1.4 cm LA Diam: 3.9 cm (2.7 - 3.8) Ao Diam: 2.9 cm (2.0 - 3.7) MV EXCURSION: 16.144 mm (> 18.000) MV EF SLOPE: 231 mm/s (70 - 150) EPSS: 0.8 cm RAP: 15.00 mmHg RVSP: 44.30 mmHg FINDINGS -------- Resting tachycardia (HR>100bpm). This was a technically adequate study. The left ventricular size is normal. There is borderline concentric left ventricular hypertrophy. Overall left ventricular systolic function is normal with, an EF between 55 - 60 %. The right ventricle is normal in size. The left atrial size is normal. The right atrium is normal in size. Interatrial and interventricular septum intact. Aortic valve is trileaflet and is mildly thickened. The mitral valve leaflets are mildly thickened. Mild mitral annular calcification present. There is trace to mild mitral regurgitation. Mild tricuspid regurgitation present. There is mild pulmonary hypertension. The right ventricular systolic pressure, as measured by Doppler, is 44.30mmHg. Trace/mild (physiologic) pulmonic regurgitation. The aortic root size is normal. Normal inferior vena cava with less than 50% inspiratory collapse consistent with estimated right atr ial pressure of 15 mmHg. There is no pericardial effusion. CONCLUSIONS -------- 1. The left ventricular size is normal. 2. There is borderline concentric left ventricular hypertrophy. 3. Overall left ventricular systolic function is normal with, an EF between 55 - 60 %. 4. Aortic valve is trileaflet and is mildly thickened. 5. The mitral valve leaflets are mildly thickened. 6. Mild mitral annular calcification present. 7. There is trace to mild mitral regurgitation. 8. Mild tricuspid regurgitation present. 9. There is mild pulmonary hypertension. 10. The right ventricular systolic pressure, as measured by Doppler, is 44.30mmHg. 11. Trace/mild (physiologic) pulmonic regurgitation. 12. Normal inferior vena cava with less than 50% inspiratory collapse consistent with estimated right atrial pressure of 15 mmHg. 13. There is no pericardial effusion. IMAGERY INTELLIGENCE: KOSTA Mendez
[2020-11-21 20:04] LABS: Glucose,Whole Blood 129 mg/dL (75-99)
[2020-11-21] MEDS: PRAVASTATIN SODIUM 40 MG TAB PO SCH (20:19)
[2020-11-21] MEDS: PRIMIDONE 50 MG TAB PO SCH (20:19)
[2020-11-21] MEDS: PARoxetine 10 MG TAB PO SCH (20:20)
--- NOTE | 2020-11-21 23:26 | P.PN ---
Progress Note - Text Progress Note Date: 11/21/20 Chief Complaint: Palpitation History of presenting complaint: Patient is a 85-year-old female with a known history of with a known history of dementia, , diabetes type 2 zge-bjvjtlb-frlnrubjq, hyperlipidemia, COPD, anxiety/depression and previous history of smoking was brought to the hospital from extended care facility with complaints of shortness of breath, fever and tachycardia and hypoxia. . Patient does have underlying dementia . EMS was called out to the [facility] for increased heart rate. Per the nursing staff heart rate was about 150 this morning. Some medications given with still remained above 100. Patient didn't notice to be short of breath having some palpitations.. He went uses a wheelchair. Not the best of historians. admitted with AIesha diallo patient rapid ventricular rate, COPD exacerbation.acute UTI. Today-blood pressure was of the systolic 90s. Shortness of breath a bit better. later- heart rate went up to 140s. Review of systems: Was done for constitutional, cardiovascular, GI, pulmonary. relevant finding as above On examination: VITAL SIGNS: 97.5,heart rate variable, 16, 92 x 53, 96% on room air GENERAL APPEARANCE: Propped up in bed, a bit tired short of breath. HEENT: Normal external appearance of nose and ear. Oral cavity normal, decreased hearing EYES: Pupils equal. Conjunctiva normal. NECK: JVD not raised. Mass not palpable. RESPIRATORY: Respiratory effort increased, lungs decreased breath sounds. CARDIOVASCULAR: Irregular heart sounds. No edema. ABDOMEN: Soft. Liver and spleen not palpable. No tenderness. No mass palpable. PSYCHIATRY: Awake, answering simple questions Investigations: White count 8.5 hemoglobin 11.7 platelets 323 potassium 5.1 creatinine 0.61 UA positive for nitrite, leukoesterase EKG tracing atrial flutter with [address] segment changes Chest x-ray film personally reviewed by me-lung gonzalez clear Assessment: -Persistent atrial fibrillation with rapid ventricular rate.heart rate variable including up to the 140s. -Acute COPD exacerbation-better -Alzheimer's dementia late onset type -GERD -Hyperlipidemia -Diabetes mellitus type 2, on oral hypoglycemic -Anxiety depression otherwise specified -Acute UTI with cystitis -DO NOT RESUSCITATE Plan: patient on Cardizem 120 mg twice a day. Toprol-XL 50 mg a day. Heart rate still up to 140s today. Followa cardiology
[2020-11-22 06:06] LABS: Glucose,Whole Blood 105 mg/dL (75-99)
[2020-11-22] MEDS: MULTIVITAMINS, THERA 1 EACH TAB PO SCH (06:16)
[2020-11-22] MEDS: MAGNESIUM OXIDE 400 MG TAB PO SCH ×2 (06:16→20:23)
[2020-11-22] MEDS: CHOLECALCIFEROL 1,000 UNIT TAB PO SCH (06:16)
[2020-11-22] MEDS: PANTOPRAZOLE 40 MG TABLET PO SCH (06:16)
[2020-11-22] MEDS: GABAPENTIN 300 MG CAP PO SCH ×2 (06:16→20:22)
[2020-11-22] MEDS: LINAGLIPTIN 5 MG TABLET PO SCH ×2 (06:18→20:22)
[2020-11-22] MEDS: APIXABAN 2.5 MG TABLET PO SCH ×2 (06:18→20:23)
[2020-11-22] MEDS: metFORMIN 500 MG TAB PO SCH ×2 (06:18→20:23)
[2020-11-22] MEDS: INSULIN ASPART (NovoLOG) 100 UNIT/ML VIAL SQ SCH ×4 (06:19→22:05)
--- NOTE | 2020-11-22 10:11 | PN ---
PROGRESS NOTE Mrs. Cortez is an 85-year-old female who presented with evidence of atrial fibrillation with rapid ventricular response. She is feeling better today. Hemodynamically, she is stable. Her breathing is better. She is denying any chest pain. She denies any dizziness or palpitation. She denies any nausea. She had an echocardiogram performed yesterday that revealed a preserved left ventricular size and systolic function. Her appetite has been good. She has not complained of any significant dizziness. She continues to be on Eliquis 2.5 mg twice a day, diltiazem 120 mg twice a day, metformin 1 gram twice a day, metoprolol succinate 50 mg daily, Mysoline, Paxil. PHYSICAL EXAMINATION: Blood pressure running in the one teens to 120s with the heart rate still at times up to the 120s. LUNGS: Clear. HEART: Irregular, irregular. S1, S2. No S3. No rub. ABDOMEN: Soft, nontender. EXTREMITIES: No edema. IMPRESSION: 1. Atrial fibrillation with still persistent episode of rapid ventricular response. 2. History of diabetes. 3. History of hyperlipidemia. RECOMMENDATION: I will increase the dose of her beta david, continue rest of medical regimen. If her rate is under 100, then I believe that she should be stable on the present regimen. Will continue to follow her blood pressure. MMODL / IJN: [id number] /
[2020-11-22] MEDS: METOPROLOL SUCCINATE (ER) 50 MG TAB.ER.24H PO SCH ×2 (11:02→20:23)
[2020-11-22] MEDS: SULFAMETHOX-TMP 800-160MG 1 EACH TAB PO SCH ×2 (11:03→20:22)
[2020-11-22] MEDS: DILTIAZEM ORAL 60 MG TAB PO SCH ×2 (11:03→20:22)
--- NOTE | 2020-11-22 11:11 | CDI ---
Documentation Clarification Form Date: 11/22/2020 10:34:50 AM From: Neelima Aleman RN, CCDS Admit Date: 11/21/2020 02:24:00 PM Patient Name: Reyna Cortez Visit Number: [id number] Discharge Date: ATTENTION: The Clinical Documentation Specialists (CDI) and [facility] Coding Staff appreciate your assistance in clarifying documentation. Please respond to the clarification below the line at the bottom and electronically sign. The CDI & [facility] Coding staff will review the response and follow-up if needed. Please note: Queries are made part of the Legal Health Record. If you have any questions, please contact the author of this message via ITS. Dr. Prosper Zepeda Atrial Flutter is documented in the ED assessment on 11/19, H/P and cardiology consult on 11/20/19. Please clarify type of atrial flutter if known. History/Risk factors: Chronic persistent atrial fibrillation, Coronary artery disease, Diabetes mellitus, Clinical Indicators: 85-year-old present to ED on 11/19 with tachycardia. Per ED initial comments she admits she has had some fluttering in her chest over the past few days. No chest pain. 11/19 Vital signs on presentation to ED: 113/103 137 20 99.2 97 % RA 11/19 EKG/telemetry: Atrial flutter with a 2:1 conduction with heart rate of 136. Nonspecific ST-T 11/19 Chest x-ray does not reveal acute process. 11/21 ECHO: There is borderline concentric left ventricular hypertrophy. Mild pulmonary hypertension. Overall left ventricular systolic function is normal with, an EF between 55-60 % Treatment: Telemetry monitoring Cardizem 125 mg IV, (11/19) Cardizem 120 mg po bid Eliquis 2.5 mg po bid Monitor blood pressure Toprol 50 mg po daily In your professional opinion, in order to capture the severity of condition; can you please clarify the type of Atrial Flutter if known? Typical/Type I XX Atypical/Type II Other, please specify Unable to determine (Last Revision: February 2018) MTDD
[2020-11-22 11:46] LABS: Glucose,Whole Blood 154 mg/dL (75-99)
[2020-11-22 12:52] VITALS: BMI 19.3
[2020-11-22 17:06] LABS: Glucose,Whole Blood 141 mg/dL (75-99)
[2020-11-22] MEDS: DULoxetine HCL 60 MG CAPSULE.DR PO SCH (17:43)
[2020-11-22 20:22] LABS: Glucose,Whole Blood 135 mg/dL (75-99)
[2020-11-22] MEDS: PRAVASTATIN SODIUM 40 MG TAB PO SCH (20:22)
[2020-11-22] MEDS: PRIMIDONE 50 MG TAB PO SCH (20:22)
[2020-11-22] MEDS: PARoxetine 10 MG TAB PO SCH (20:22)
--- NOTE | 2020-11-22 21:19 | P.PN ---
Progress Note - Text Progress Note Date: 11/22/20 Chief Complaint: Palpitation History of presenting complaint: Patient is a 85-year-old female with a known history of with a known history of dementia, , diabetes type 2 nim-vbayldi-ztoyczwfn, hyperlipidemia, COPD, anxiety/depression and previous history of smoking was brought to the hospital from extended care facility with complaints of shortness of breath, fever and tachycardia and hypoxia. . Patient does have underlying dementia . EMS was called out to the [facility] for increased heart rate. Per the nursing staff heart rate was about 150 this morning. Some medications given with still remained above 100. Patient didn't notice to be short of breath having some palpitations.. He went uses a wheelchair. Not the best of historians. admitted with AIesha diallo patient rapid ventricular rate, COPD exacerbation.acute UTI. Civio-Kroqdz-HT increased to 50 mg twice a day. Breathing better. Tolerating some diet. Review of systems: Was done for constitutional, cardiovascular, GI, pulmonary. relevant finding as above Active Medications Hydrocodone Bitart/Acetaminophen (Hydrocodone/Apap 5-325mg 1 Each Tab) 1 each PO Q8H PRN PRN Reason: Pain Last Admin: 11/21/20 20:19 Dose: 1 each Documented by: Apixaban (Apixaban 2.5 Mg Tablet) 2.5 mg PO BID@ [facility] Last Admin: 11/22/20 20:23 Dose: 2.5 mg Documented by: Cholecalciferol (Cholecalciferol 1,000 Unit Tab) 2,000 unit PO DAILY@0600 [facility] Last Admin: 11/22/20 06:16 Dose: 2,000 unit Documented by: Diltiazem HCl (Diltiazem Oral 60 Mg Tab) 120 mg PO BID [facility] Last Admin: 11/22/20 20:22 Dose: 120 mg Documented by: Duloxetine HCl (Duloxetine Hcl 60 Mg Capsule.) 60 mg PO DAILY@1600 [facility] Last Admin: 11/22/20 17:43 Dose: 60 mg Documented by: Gabapentin (Gabapentin 300 Mg Cap) 600 mg PO BID@699,1999 [facility] Last Admin: 11/22/20 20:22 Dose: 600 mg Documented by: Insulin Aspart (Insulin Aspart (Novolog) 100 Unit/Ml Vial) 0 unit SQ [facility]; Protocol Last Admin: 11/22/20 17:43 Dose: 1 unit Documented by: Linagliptin (Linagliptin 5 Mg Tablet) 2.5 mg PO BID@ [facility] Last Admin: 11/22/20 20:22 Dose: 2.5 mg Documented by: Loperamide HCl (Loperamide 2 Mg Cap) 4 mg PO DAILY PRN PRN Reason: Diarrhea Last Admin: 11/20/20 20:53 Dose: 4 mg Documented by: Magnesium Oxide (Magnesium Oxide 400 Mg Tab) 400 mg PO BID@ [facility] Last Admin: 11/22/20 20:23 Dose: 400 mg Documented by: Metformin HCl (Metformin 500 Mg Tab) 1,000 mg PO BID@ [facility] Last Admin: 11/22/20 20:23 Dose: 1,000 mg Documented by: Metoprolol Succinate (Metoprolol Succinate (Er) 50 Mg Tab.Er.24h) 50 mg PO BID [facility] Last Admin: 11/22/20 20:23 Dose: 50 mg Documented by: Multivitamins (Multivitamins, Thera 1 Each Tab) 1 each PO DAILY@06 [facility] Last Admin: 11/22/20 06:16 Dose: 1 each Documented by: Naloxone HCl (Naloxone 0.4 Mg/Ml 1 Ml Vial) 0.2 mg IV Q2M PRN PRN Reason: Opioid Reversal Pantoprazole Sodium (Pantoprazole 40 Mg Tablet) 40 mg PO DAILY@699 [facility] Last Admin: 11/22/20 06:16 Dose: 40 mg Documented by: Paroxetine HCl (Paroxetine 10 Mg Tab) 10 mg PO HS@1999 [facility] Last Admin: 11/22/20 20:22 Dose: 10 mg Documented by: Pravastatin Sodium (Pravastatin Sodium 40 Mg Tab) 40 mg PO HS@1999 [facility] Last Admin: 11/22/20 20:22 Dose: 40 mg Documented by: Primidone (Primidone 50 Mg Tab) 100 mg PO HS@1999 [facility] Last Admin: 11/22/20 20:22 Dose: 100 mg Documented by: Trimethoprim/Sulfamethoxazole (Sulfamethox-Tmp 800-160mg 1 Each Tab) 1 each PO BID [facility] Last Admin: 11/22/20 20:22 Dose: 1 each Documented by: On examination: VITAL SIGNS: 97.8, 95, 18, 99/61, 96% room air GENERAL APPEARANCE: Propped up in bed, breathing much better. HEENT: Normal external appearance of nose and ear. Oral cavity normal, decreased hearing EYES: Pupils equal. Conjunctiva normal. NECK: JVD not raised. Mass not palpable. RESPIRATORY: Respiratory effort increased, lungs decreased breath sounds. CARDIOVASCULAR: Irregular heart sounds. No edema. ABDOMEN: Soft. Liver and spleen not palpable. No tenderness. No mass palpable. PSYCHIATRY: Awake, answering simple questions Investigations: White count 8.5 hemoglobin 11.7 platelets 323 potassium 5.1 creatinine 0.61 UA positive for nitrite, leukoesterase EKG tracing atrial flutter with [address] segment changes Chest x-ray film personally reviewed by me-lung gonzalez clear Assessment: -Persistent atrial fibrillation with rapid ventricular rate.heart rate variable including up to the 140s.-Dose of Toprol increased today. -Acute COPD exacerbation-better -Alzheimer's dementia late onset type -GERD -Hyperlipidemia -Diabetes mellitus type 2, on oral hypoglycemic -Anxiety depression otherwise specified -Acute UTI with cystitis -DO NOT RESUSCITATE Plan: patient on Cardizem 120 mg twice a day. Toprol-XL 50 mg increased to twice a day today. Discussed with the patient
[2020-11-22] MEDS: HYDROcodone/APAP 5-325MG 1 EACH TAB PO PRN (23:10)
[2020-11-23] MEDS: metFORMIN 500 MG TAB PO SCH ×2 (06:24→20:05)
[2020-11-23] MEDS: CHOLECALCIFEROL 1,000 UNIT TAB PO SCH (06:24)
[2020-11-23] MEDS: INSULIN ASPART (NovoLOG) 100 UNIT/ML VIAL SQ SCH ×4 (06:24→20:12)
[2020-11-23] MEDS: APIXABAN 2.5 MG TABLET PO SCH ×2 (06:24→20:06)
[2020-11-23] MEDS: MULTIVITAMINS, THERA 1 EACH TAB PO SCH (06:24)
[2020-11-23] MEDS: LINAGLIPTIN 5 MG TABLET PO SCH ×2 (06:24→20:05)
[2020-11-23] MEDS: PANTOPRAZOLE 40 MG TABLET PO SCH (06:24)
[2020-11-23] MEDS: MAGNESIUM OXIDE 400 MG TAB PO SCH ×2 (06:24→20:06)
[2020-11-23] MEDS: GABAPENTIN 300 MG CAP PO SCH ×2 (06:24→20:06)
[2020-11-23 06:50] LABS: Glucose,Whole Blood 113 mg/dL (75-99)
[2020-11-23] MEDS: METOPROLOL SUCCINATE (ER) 50 MG TAB.ER.24H PO SCH ×3 (08:30→20:05)
[2020-11-23] MEDS: DILTIAZEM ORAL 60 MG TAB PO SCH ×3 (08:31→20:06)
[2020-11-23] MEDS: SULFAMETHOX-TMP 800-160MG 1 EACH TAB PO SCH ×2 (08:34→21:10)
[2020-11-23] MEDS: ALBUTEROL NEBULIZED 2.5 MG/3 ML INHALATION SCH ×5 (08:49→19:51)
--- NOTE | 2020-11-23 11:48 | P.PN ---
Subjective HISTORY OF PRESENTING ILLNESS This is a pleasant 85-year-old female past medical history significant for chronic persistent atrial fibrillation on long-term anticoagulation, COPD, diabetes mellitus, dyslipidemia and former nicotine dependence. She is seen and examined resting comfortably laying flat in bed in no acute distress. She co ntinues to complain of feeling fatigued. She states she would like to get up out of bed and sit in chair. Blood pressures range between 90 systolic in 110 systolic. Currently she is 107/72 with a heart rate of 131. PHYSICAL EXAMINATION CONSTITUTIONAL: No apparent distress. HEENT: Head is normocephalic. Pupils are equal, round. Sclerae anicteric. Mucous membranes of the mouth are moist. No JVD. No carotid bruit. CHEST EXAMINATION: Lungs are clear to auscultation. No chest wall tenderness is noted on palpation or with deep breathing. HEART EXAMINATION: Irregular rate and rhythm. S1, S2 heard. No murmurs, gallops or rub. EXTREMITIES: 2+ peripheral pulses, no lower extremity edema and no calf tenderness. ASSESSMENT Chronic persistent atrial fibrillation with rapid ventricular rate COPD Diabetes mellitus Dyslipidemia PLAN Recommend further adjustments to her rate lowering medications, diltiazem 60 mg 3 times a day and Toprol 50 mg 3 times a day. Recommending the patient up out of bed during awake hours. Continue to monitor on telemetry. Repeat BMP in the morning. Further recommendations to follow based upon clinical course. Nurse Practitioner note has been reviewed, I agree with a documented findings and plan of care. Patient was seen and examined. Objective - Vital Signs Vital signs: Vital Signs Temp 97.8 F 11/23/20 08:00 Pulse 122 H 11/23/20 11:10 Resp 14 11/23/20 11:10 BP 91/48 11/23/20 11:10 Pulse Ox 92 L 11/23/20 11:10 Intake & Output 11/22/20 11/23/20 11/23/20 18:59 06:59 18:59 Intake Total 0 120 125 Balance 0 120 125 Weight 51 kg 54 kg Intake: Oral 0 120 125 Other: Voiding Method Diaper Diaper Diaper Incontinent Incontinent Incontinent # Voids 2 1 # Bowel Movements 0 0 - Labs CBC & Chem 7: 11/19/20 17:30 11/19/20 17:30 Labs: Abnormal Lab Results - Last 24 Hours (Table) 11/22/20 11/22/20 11/22/20 Range/Units 11:44 16:56 20:10 POC Glucose (mg/dL) 154 H 141 H 135 H (75-99) mg/dL 11/23/20 Range/Units 06:20 POC Glucose (mg/dL) 113 H (75-99) mg/dL
[2020-11-23 11:49] LABS: Glucose,Whole Blood 127 mg/dL (75-99)
[2020-11-23] MEDS: SODIUM CHLORIDE 0.9% 1,000 ML IV SCH (12:10)
[2020-11-23] MEDS ORDERED: SODIUM CHLORIDE 0.9% 500 ML 250 ML IV ONE (14:23)
[2020-11-23] MEDS: DULoxetine HCL 60 MG CAPSULE.DR PO SCH (15:29)
[2020-11-23 17:13] LABS: Glucose,Whole Blood 124 mg/dL (75-99)
--- NOTE | 2020-11-23 18:41 | XR ---
EXAMINATION TYPE: XR chest 2V DATE OF EXAM: 11/23/2020 COMPARISON: 11/19/2020 HISTORY: Short of breath TECHNIQUE: FINDINGS: There is no heart failure nor confluent pneumonic infiltrate. Costophrenic angles are clear . There is right shoulder prosthesis. There is moderate arthritic change in the left shoulder joint. IMPRESSION: No active cardiopulmonary disease. Normal heart. No change.
[2020-11-23 20:03] LABS: Glucose,Whole Blood 137 mg/dL (75-99)
[2020-11-23] MEDS: PRAVASTATIN SODIUM 40 MG TAB PO SCH (20:05)
[2020-11-23] MEDS: PRIMIDONE 50 MG TAB PO SCH (20:05)
[2020-11-23] MEDS: PARoxetine 10 MG TAB PO SCH (20:06)
--- NOTE | 2020-11-23 22:11 | P.PN ---
Progress Note - Text Progress Note Date: 11/23/20 Chief Complaint: Palpitation History of presenting complaint: Patient is a 85-year-old female with a known history of with a known history of dementia, , diabetes type 2 [id number], hyperlipidemia, COPD, anxiety/depression and previous history of smoking was brought to the hospital from extended care facility with complaints of shortness of breath, fever and tachycardia and hypoxia. . Patient does have underlying dementia . EMS was called out to the [facility] for increased heart rate. Per the nursing staff heart rate was about 150 this morning. Some medications given with still remained above 100. Patient didn't notice to be short of breath having some palpitations.. He went uses a wheelchair. Not the best of historians. admitted with A. fib patient rapid ventricular rate, COPD exacerbation.acute UTI. Heart rate has been fluctuating. Medications being adjusted. Today-this morning patient started wheezing more. Bronchodilators added again. Heart rate has been up again. Review of systems: Was done for constitutional, cardiovascular, GI, pulmonary. relevant finding as above Active Medications Hydrocodone Bitart/Acetaminophen (Hydrocodone/Apap 5-325mg 1 Each Tab) 1 each PO Q8H PRN PRN Reason: Pain Last Admin: 11/22/20 23:10 Dose: 1 each Documented by: Albuterol Sulfate (Albuterol Nebulized 2.5 Mg/3 Ml) 2.5 mg INHALATION RT-QID [facility] Last Admin: 11/23/20 19:51 Dose: Not Given Documented by: Apixaban (Apixaban 2.5 Mg Tablet) 2.5 mg PO BID@699,1999 [facility] Last Admin: 11/23/20 20:06 Dose: 2.5 mg Documented by: Cholecalciferol (Cholecalciferol 1,000 Unit Tab) 2,000 unit PO DAILY@0600 [facility] Last Admin: 11/23/20 06:24 Dose: 2,000 unit Documented by: Diltiazem HCl (Diltiazem Oral 60 Mg Tab) 60 mg PO TID [facility] Last Admin: 11/23/20 20:06 Dose: 60 mg Documented by: Duloxetine HCl (Duloxetine Hcl 60 Mg Capsule.) 60 mg PO DAILY@1600 [facility] Last Admin: 11/23/20 15:29 Dose: 60 mg Documented by: Gabapentin (Gabapentin 300 Mg Cap) 600 mg PO BID@ [facility] Last Admin: 11/23/20 20:06 Dose: 600 mg Documented by: Sodium Chloride (Saline 0.9%) 1,000 mls @ 50 mls/hr IV .Q20H [facility] Last Admin: 11/23/20 12:10 Dose: 50 mls/hr Documented by: Insulin Aspart (Insulin Aspart (Novolog) 100 Unit/Ml Vial) 0 unit SQ ACHS [facility]; Protocol Last Admin: 11/23/20 20:12 Dose: Not Given Documented by: Linagliptin (Linagliptin 5 Mg Tablet) 2.5 mg PO BID@ [facility] Last Admin: 11/23/20 20:05 Dose: 2.5 mg Documented by: Loperamide HCl (Loperamide 2 Mg Cap) 4 mg PO DAILY PRN PRN Reason: Diarrhea Last Admin: 11/20/20 20:53 Dose: 4 mg Documented by: Magnesium Oxide (Magnesium Oxide 400 Mg Tab) 400 mg PO BID@ [facility] Last Admin: 11/23/20 20:06 Dose: 400 mg Documented by: Metformin HCl (Metformin 500 Mg Tab) 1,000 mg PO BID@ [facility] Last Admin: 11/23/20 20:05 Dose: 1,000 mg Documented by: Metoprolol Succinate (Metoprolol Succinate (Er) 50 Mg Tab.Er.24h) 50 mg PO TID [facility] Last Admin: 11/23/20 20:05 Dose: 50 mg Documented by: Multivitamins (Multivitamins, Thera 1 Each Tab) 1 each PO DAILY@06 [facility] Last Admin: 11/23/20 06:24 Dose: 1 each Documented by: Naloxone HCl (Naloxone 0.4 Mg/Ml 1 Ml Vial) 0.2 mg IV Q2M PRN PRN Reason: Opioid Reversal Pantoprazole Sodium (Pantoprazole 40 Mg Tablet) 40 mg PO DAILY@07 [facility] Last Admin: 11/23/20 06:24 Dose: 40 mg Documented by: Paroxetine HCl (Paroxetine 10 Mg Tab) 10 mg PO HS@1999 [facility] Last Admin: 11/23/20 20:06 Dose: 10 mg Documented by: Pravastatin Sodium (Pravastatin Sodium 40 Mg Tab) 40 mg PO HS@1999 [facility] Last Admin: 11/23/20 20:05 Dose: 40 mg Documented by: Primidone (Primidone 50 Mg Tab) 100 mg PO HS@1999 [facility] Last Admin: 11/23/20 20:05 Dose: 100 mg Documented by: Trimethoprim/Sulfamethoxazole (Sulfamethox-Tmp 800-160mg 1 Each Tab) 1 each PO BID [facility] Last Admin: 11/23/20 21:10 Dose: 1 each Documented by: On examination: VITAL SIGNS: 98.8, 116, 18, 93/ 65, 99% on 2 L GENERAL APPEARANCE: Propped up in bed, tired. HEENT: Normal external appearance of nose and ear. Oral cavity normal, decreased hearing EYES: Pupils equal. Conjunctiva normal. NECK: JVD not raised. Mass not palpable. RESPIRATORY: Respiratory effort increased, lungs decreased breath sounds. CARDIOVASCULAR: Irregular heart sounds. No edema. ABDOMEN: Soft. Liver and spleen not palpable. No tenderness. No mass palpable. PSYCHIATRY: Awake, answering simple questions Investigations: White count 8.5 hemoglobin 11.7 platelets 323 potassium 5.1 creatinine 0.61 UA positive for nitrite, leukoesterase EKG tracing atrial flutter with [address] segment changes Chest x-ray film personally reviewed by me-lung gonzalez clear Assessment: -Persistent atrial fibrillation with rapid ventricular rate.heart rate variable -uncontrolled -Acute COPD worsening today -Alzheimer's dementia late onset type -GERD -Hyperlipidemia -Diabetes mellitus type 2, on oral hypoglycemic -Anxiety depression otherwise specified -Acute UTI with cystitis -DO NOT RESUSCITATE Plan: Ventolin added. Understandably that increase patient's heart rate again. Gentle hydration. On Cardizem 60 mg 3 times a day and Toprol-XL 50 mg 3 times a day. Follow closely.
[2020-11-24] MEDS: INSULIN ASPART (NovoLOG) 100 UNIT/ML VIAL SQ SCH ×4 (06:14→20:20)
[2020-11-24 06:17] LABS: Glucose,Whole Blood 112 mg/dL (75-99)
[2020-11-24] MEDS: GABAPENTIN 300 MG CAP PO SCH ×2 (06:18→20:28)
[2020-11-24] MEDS: CHOLECALCIFEROL 1,000 UNIT TAB PO SCH (06:18)
[2020-11-24] MEDS: PANTOPRAZOLE 40 MG TABLET PO SCH (06:18)
[2020-11-24] MEDS: LINAGLIPTIN 5 MG TABLET PO SCH ×2 (06:18→20:29)
[2020-11-24] MEDS: metFORMIN 500 MG TAB PO SCH ×2 (06:19→20:28)
[2020-11-24] MEDS: MULTIVITAMINS, THERA 1 EACH TAB PO SCH (06:19)
[2020-11-24] MEDS: APIXABAN 2.5 MG TABLET PO SCH ×2 (06:19→20:29)
[2020-11-24] MEDS: MAGNESIUM OXIDE 400 MG TAB PO SCH ×2 (06:21→20:29)
[2020-11-24 08:06] LABS: African American GFR (CKD) >90 (>60 ml/min/1.73 sqM); Anion Gap 5 mmol/L; Blood Urea Nitrogen 20 mg/dL (7-17); Calcium 9.1 mg/dL (8.4-10.2); Carbon Dioxide 25 mmol/L (22-30); Chloride 107 mmol/L (98-107); Glucose 110 mg/dL (74-99); Magnesium 1.6 mg/dL (1.6-2.3); Non-African American GFR(CKD) 80 (>60 ml/min/1.73 sqM); Potassium 5.5 mmol/L (3.5-5.1); Sodium 137 mmol/L (137-145)
[2020-11-24] MEDS: ALBUTEROL NEBULIZED 2.5 MG/3 ML INHALATION SCH ×4 (08:25→20:13)
[2020-11-24] MEDS: METOPROLOL SUCCINATE (ER) 50 MG TAB.ER.24H PO SCH (09:05)
[2020-11-24] MEDS: DILTIAZEM ORAL 60 MG TAB PO SCH ×3 (09:05→20:57)
[2020-11-24] MEDS: SODIUM CHLORIDE 0.9% 1,000 ML IV SCH (09:05)
[2020-11-24] MEDS: SULFAMETHOX-TMP 800-160MG 1 EACH TAB PO SCH ×2 (09:05→20:29)
--- NOTE | 2020-11-24 10:54 | P.PN ---
Subjective Progress Note Date: 11/24/20 Clinical 85-year-old female patient with a past medical history significant for chronic persistent atrial fibrillation on long-term anticoagulation, COPD, diabetes mellitus, dyslipidemia and former nicotine dependence. Heart rates remained poorly controlled. Currently on Cardizem 60 mg by mouth 3 times a day and metoprolol succinate 50 mg by mouth 3 times a day. Upon examination she is resting comfortably in bed. Blood pressure running around 100 systolic. Overall she's feeling fairly well she just complains of feeling quite tired. Objective - Vital Signs Vital signs: Vital Signs Temp 98.2 F 11/23/20 19:58 Pulse 116 H 11/24/20 08:35 Resp 17 11/24/20 03:19 BP 105/75 11/24/20 03:19 Pulse Ox 98 11/24/20 03:19 Intake & Output 11/23/20 11/24/20 11/24/20 18:59 06:59 18:59 Intake Total 833 120 Balance 833 120 Weight 55 kg Intake: Oral 833 120 Other: Voiding Method Diaper Diaper Incontinent Incontinent # Voids 1 1 1 # Bowel Movements 1 1 - Exam PHYSICAL EXAMINATION: HEENT: Head is atraumatic, normocephalic. Pupils equal, round. Neck is supple. There is no elevated jugular venous pressure. HEART EXAMINATION: Heart sounds irregular irregular, S1 and S2 normal. No murmur or gallop heard. CHEST EXAMINATION: Lungs are clear to auscultation. No chest wall tenderness is noted on palpation or with deep breathing. ABDOMEN: Soft, nontender. Bowel sounds are heard. No organomegaly noted. EXTREMITIES: 2+ peripheral pulses with no evidence of peripheral edema and no calf tenderness noted. NEUROLOGIC patient is awake, alert and oriented x3. . - Labs CBC & Chem 7: 11/19/20 17:30 11/24/20 06:51 Labs: Abnormal Lab Results - Last 24 Hours (Table) 11/23/20 11/23/20 11/23/20 Range/Units 11:40 17:05 20:01 Potassium (3.5-5.1) mmol/L BUN (7-17) mg/dL Glucose (74-99) mg/dL POC Glucose (mg/dL) 127 H 124 H 137 H (75-99) mg/dL 11/24/20 11/24/20 Range/Units 06:11 06:51 Potassium 5.5 H (3.5-5.1) mmol/L BUN 20 H (7-17) mg/dL Glucose 110 H (74-99) mg/dL POC Glucose (mg/dL) 112 H (75-99) mg/dL Assessment and Plan Assessment: Chronic persistent atrial fibrillation with rapid ventricular rate COPD Diabetes mellitus Dyslipidemia Plan: From cardiology's perspective we will increase metoprolol to 75 mg by mouth 3 times a day. Continue to monitor on telemetry. We will continue to follow the patient closely and provide further recommendations accordingly. HYDROELECTRIC STATION OPERATOR note has been reviewed, I agree with a documented findings and plan of care. Patient was seen and examined.
[2020-11-24 11:32] LABS: Glucose,Whole Blood 149 mg/dL (75-99)
[2020-11-24] MEDS: LOPERAMIDE 2 MG CAP PO PRN (15:02)
[2020-11-24 16:43] LABS: Glucose,Whole Blood 122 mg/dL (75-99)
[2020-11-24] MEDS: METOPROLOL SUCCINATE (ER) 25 MG TAB.ER.24H PO SCH ×2 (17:20→20:28)
[2020-11-24] MEDS: DULoxetine HCL 60 MG CAPSULE.DR PO SCH (17:20)
[2020-11-24 20:25] LABS: Glucose,Whole Blood 164 mg/dL (75-99)
[2020-11-24] MEDS: PRAVASTATIN SODIUM 40 MG TAB PO SCH (20:28)
[2020-11-24] MEDS: PRIMIDONE 50 MG TAB PO SCH (20:29)
[2020-11-24] MEDS: HYDROcodone/APAP 5-325MG 1 EACH TAB PO PRN (20:29)
[2020-11-24] MEDS: PARoxetine 10 MG TAB PO SCH (20:29)
[2020-11-24] MEDS: LORATADINE-PSEUDOEPH 5-120 MG 1 EACH TAB.ER.12H PO PRN (21:33)
[2020-11-24] MEDS ORDERED: SODIUM POLYSTYRENE SULFONATE 15 GM/60 ML BOTTLE PO STA (22:45)
--- NOTE | 2020-11-24 22:45 | P.PN ---
Progress Note - Text Progress Note Date: 11/24/20 Chief Complaint: Palpitation History of presenting complaint: Patient is a 85-year-old female with a known history of with a known history of dementia, , diabetes type 2 [id number], hyperlipidemia, COPD, anxiety/depression and previous history of smoking was brought to the hospital from extended care facility with complaints of shortness of breath, fever and tachycardia and hypoxia. . Patient does have underlying dementia . EMS was called out to the [facility] for increased heart rate. Per the nursing staff heart rate was about 150 this morning. Some medications given with still remained above 100. Patient didn't notice to be short of breath having some palpitations.. He went uses a wheelchair. Not the best of historians. admitted with A. fib patient rapid ventricular rate, COPD exacerbation.acute UTI. Heart rate has been fluctuating. Medications being adjusted. Today-tired. Heart rate remains up.. Some shortness of breath. Review of systems: Was done for constitutional, cardiovascular, GI, pulmonary. relevant finding as above Active Medications Hydrocodone Bitart/Acetaminophen (Hydrocodone/Apap 5-325mg 1 Each Tab) 1 each PO Q8H PRN PRN Reason: Pain Last Admin: 11/24/20 20:29 Dose: 1 each Documented by: Albuterol Sulfate (Albuterol Nebulized 2.5 Mg/3 Ml) 2.5 mg INHALATION RT-QID [facility] Last Admin: 11/24/20 20:13 Dose: Not Given Documented by: Apixaban (Apixaban 2.5 Mg Tablet) 2.5 mg PO BID@699,1999 [facility] Last Admin: 11/24/20 20:29 Dose: 2.5 mg Documented by: Cholecalciferol (Cholecalciferol 1,000 Unit Tab) 2,000 unit PO DAILY@0600 [facility] Last Admin: 11/24/20 06:18 Dose: 2,000 unit Documented by: Diltiazem HCl (Diltiazem Oral 60 Mg Tab) 60 mg PO TID [facility] Last Admin: 11/24/20 20:57 Dose: 60 mg Documented by: Duloxetine HCl (Duloxetine Hcl 60 Mg Capsule.) 60 mg PO DAILY@1600 [facility] Last Admin: 11/24/20 17:20 Dose: 60 mg Documented by: Gabapentin (Gabapentin 300 Mg Cap) 600 mg PO BID@ [facility] Last Admin: 11/24/20 20:28 Dose: 600 mg Documented by: Sodium Chloride (Saline 0.9%) 1,000 mls @ 50 mls/hr IV .Q20H [facility] Last Admin: 11/24/20 09:05 Dose: Not Given Documented by: Insulin Aspart (Insulin Aspart (Novolog) 100 Unit/Ml Vial) 0 unit SQ ACHS [facility]; Protocol Last Admin: 11/24/20 20:20 Dose: Not Given Documented by: Linagliptin (Linagliptin 5 Mg Tablet) 2.5 mg PO BID@ [facility] Last Admin: 11/24/20 20:29 Dose: 2.5 mg Documented by: Loperamide HCl (Loperamide 2 Mg Cap) 4 mg PO DAILY PRN PRN Reason: Diarrhea Last Admin: 11/24/20 15:02 Dose: 4 mg Documented by: Loratadine/Pseudoephedrine Sulfate (Loratadine-Pseudoeph 5-120 Mg 1 Each Tab.Er.12h) 1 each PO Q12HR PRN PRN Reason: Allergy Symptoms Last Admin: 11/24/20 21:33 Dose: 1 each Documented by: Magnesium Oxide (Magnesium Oxide 400 Mg Tab) 400 mg PO BID@ [facility] Last Admin: 11/24/20 20:29 Dose: 400 mg Documented by: Metformin HCl (Metformin 500 Mg Tab) 1,000 mg PO BID@ [facility] Last Admin: 11/24/20 20:28 Dose: 1,000 mg Documented by: Metoprolol Succinate (Metoprolol Succinate (Er) 25 Mg Tab.Er.24h) 75 mg PO TID [facility] Last Admin: 11/24/20 20:28 Dose: 75 mg Documented by: Multivitamins (Multivitamins, Thera 1 Each Tab) 1 each PO DAILY@06 [facility] Last Admin: 11/24/20 06:19 Dose: 1 each Documented by: Naloxone HCl (Naloxone 0.4 Mg/Ml 1 Ml Vial) 0.2 mg IV Q2M PRN PRN Reason: Opioid Reversal Pantoprazole Sodium (Pantoprazole 40 Mg Tablet) 40 mg PO DAILY@07 [facility] Last Admin: 11/24/20 06:18 Dose: 40 mg Documented by: Paroxetine HCl (Paroxetine 10 Mg Tab) 10 mg PO HS@1999 [facility] Last Admin: 11/24/20 20:29 Dose: 10 mg Documented by: Pravastatin Sodium (Pravastatin Sodium 40 Mg Tab) 40 mg PO HS@1999 [facility] Last Admin: 11/24/20 20:28 Dose: 40 mg Documented by: Primidone (Primidone 50 Mg Tab) 100 mg PO HS@1999 [facility] Last Admin: 11/24/20 20:29 Dose: 100 mg Documented by: Trimethoprim/Sulfamethoxazole (Sulfamethox-Tmp 800-160mg 1 Each Tab) 1 each PO BID [facility] Last Admin: 11/24/20 20:29 Dose: 1 each Documented by: On examination: VITAL SIGNS: 98, 1:30, 16, 112/63, 98% room air GENERAL APPEARANCE: Propped up in bed, tired. HEENT: Normal external appearance of nose and ear. Oral cavity normal, decreased hearing EYES: Pupils equal. Conjunctiva normal. NECK: JVD not raised. Mass not palpable. RESPIRATORY: Respiratory effort increased, lungs decreased breath sounds. CARDIOVASCULAR: Irregular heart sounds. No edema. ABDOMEN: Soft. Liver and spleen not palpable. No tenderness. No mass palpable. PSYCHIATRY: Awake, answering simple questions Investigations: November 24: Potassium 5.5 creatinine 0.7 White count 8.5 hemoglobin 11.7 platelets 323 potassium 5.1 creatinine 0.61 UA positive for nitrite, leukoesterase EKG tracing atrial flutter with [address] segment changes Chest x-ray film personally reviewed by me-lung gonzalez clear Assessment: -Persistent atrial fibrillation with rapid ventricular rate.heart rate variable -uncontrolled -Acute COPD exacerbation-slow to respond -Alzheimer's dementia late onset type -GERD -Hyperlipidemia -Diabetes mellitus type 2, on oral hypoglycemic -Anxiety depression otherwise specified -Acute UTI with cystitis -DO NOT RESUSCITATE -Hyperkalemia. We'll give Kayexalate. Plan: Give Kayexalate. On Cardizem 60 mg 3 times a day and increased Toprol-XL 75 mg 3 times a day. Follow closely. Discussed with patient.
[2020-11-25] MEDS: SODIUM CHLORIDE 0.9% 1,000 ML IV SCH ×2 (03:21→09:47)
[2020-11-25] MEDS: CHOLECALCIFEROL 1,000 UNIT TAB PO SCH (05:51)
[2020-11-25] MEDS: PANTOPRAZOLE 40 MG TABLET PO SCH (05:51)
[2020-11-25] MEDS: GABAPENTIN 300 MG CAP PO SCH ×2 (05:51→20:21)
[2020-11-25] MEDS: APIXABAN 2.5 MG TABLET PO SCH ×2 (05:51→20:22)
[2020-11-25] MEDS: MAGNESIUM OXIDE 400 MG TAB PO SCH ×2 (05:51→20:21)
[2020-11-25] MEDS: MULTIVITAMINS, THERA 1 EACH TAB PO SCH (05:51)
[2020-11-25] MEDS: metFORMIN 500 MG TAB PO SCH ×2 (05:51→20:21)
[2020-11-25] MEDS: LINAGLIPTIN 5 MG TABLET PO SCH ×2 (05:52→20:22)
[2020-11-25 06:14] LABS: Glucose,Whole Blood 125 mg/dL (75-99)
[2020-11-25] MEDS: INSULIN ASPART (NovoLOG) 100 UNIT/ML VIAL SQ SCH ×4 (06:16→20:28)
[2020-11-25 07:55] LABS: African American GFR (CKD) >90 (>60 ml/min/1.73 sqM); Anion Gap 6 mmol/L; Blood Urea Nitrogen 13 mg/dL (7-17); Calcium 9.1 mg/dL (8.4-10.2); Carbon Dioxide 21 mmol/L (22-30); Chloride 109 mmol/L (98-107); Glucose 119 mg/dL (74-99); Non-African American GFR(CKD) 81 (>60 ml/min/1.73 sqM); Sodium 136 mmol/L (137-145)
[2020-11-25 08:02] LABS: Potassium 4.9 mmol/L (3.5-5.1)
[2020-11-25] MEDS: ALBUTEROL NEBULIZED 2.5 MG/3 ML INHALATION SCH ×4 (08:29→18:56)
[2020-11-25] MEDS: DILTIAZEM ORAL 60 MG TAB PO SCH ×3 (09:45→20:21)
[2020-11-25] MEDS: METOPROLOL SUCCINATE (ER) 25 MG TAB.ER.24H PO SCH ×3 (09:45→20:22)
[2020-11-25 11:47] LABS: Glucose,Whole Blood 146 mg/dL (75-99)
--- NOTE | 2020-11-25 12:32 | P.PN ---
Subjective Progress Note Date: 11/25/20 This is a pleasant 85-year-old female patient with a past medical history significant for chronic persistent atrial fibrillation on long-term anticoagulation, COPD, diabetes mellitus, dyslipidemia and former nicotine dependence. Heart rates remained poorly controlled. Currently on Cardizem 60 m g by mouth 3 times a day and metoprolol succinate 50 mg by mouth 3 times a day. Upon examination she is resting comfortably in bed. Blood pressure running around 100 systolic. Overall she's feeling fairly well she just complains of feeling quite tired. 11/25/2020 Patient seen and examined this morning with significantly in bed. Overall she continues to feel tired. This morning she does complain of some nausea. Her rate remains poorly controlled currently in the 120s. She remains anticoagu lated. She remains on Cardizem 60 mg by mouth 3 times a day as well as metoprolol succinate 75 mg by mouth 3 times a day. Objective - Vital Signs Vital signs: Vital Signs Temp 97.9 F 11/24/20 16:00 Pulse 106 H 11/25/20 12:26 Resp 16 11/25/20 03:31 BP 144/94 11/25/20 03:31 Pulse Ox 99 11/25/20 03:31 Intake & Output 11/24/20 11/25/20 11/25/20 18:59 06:59 18:59 Intake Total 720 120 Balance 720 120 Weight 75 kg Intake: Oral 720 120 Other: Voiding Method Diaper Diaper Incontinent Incontinent # Voids 2 3 1 # Bowel Movements 1 - Exam PHYSICAL EXAMINATION: HEENT: Head is atraumatic, normocephalic. Pupils equal, round. Neck is supple. There is no elevated jugular venous pressure. HEART EXAMINATION: Heart sounds irregular irregular, S1 and S2 normal. No murmur or gallop heard. Tachycardia noted. CHEST EXAMINATION: Lungs are clear to auscultation. No chest wall tenderness is noted on palpation or with deep breathing. ABDOMEN: Soft, nontender. Bowel sounds are heard. No organomegaly noted. EXTREMITIES: 2+ peripheral pulses with no evidence of peripheral edema and no calf tenderness noted. NEUROLOGIC patient is awake, alert and oriented x3. . - Labs CBC & Chem 7: 11/19/20 17:30 11/25/20 07:17 Labs: Abnormal Lab Results - Last 24 Hours (Table) 11/24/20 11/24/20 11/25/20 Range/Units 16:41 20:16 06:13 Sodium (137-145) mmol/L Chloride (98-107) mmol/L Carbon Dioxide (22-30) mmol/L Glucose (74-99) mg/dL POC Glucose (mg/dL) 122 H 164 H 125 H (75-99) mg/dL 11/25/20 11/25/20 Range/Units 07:17 11:44 Sodium 136 L (137-145) mmol/L Chloride 109 H (98-107) mmol/L Carbon Dioxide 21 L (22-30) mmol/L Glucose 119 H (74-99) mg/dL POC Glucose (mg/dL) 146 H (75-99) mg/dL Assessment and Plan Assessment: Chronic persistent atrial fibrillation with rapid ventricular rate COPD Diabetes mellitus Dyslipidemia Plan: From cardiology's perspective we will add amiodarone 200 mg by mouth twice a day. Continue to monitor on telemetry. We will continue to follow the patient closely and provide further recommendations accordingly. CLINICAL NURSING MANAGER note has been reviewed, I agree with a documented findings and plan of care. Patient was seen and examined.
[2020-11-25] MEDS: AMIODARONE 200 MG TAB PO SCH ×2 (12:33→20:21)
[2020-11-25] MEDS: DULoxetine HCL 60 MG CAPSULE.DR PO SCH (16:44)
[2020-11-25 16:45] LABS: Glucose,Whole Blood 114 mg/dL (75-99)
[2020-11-25 20:21] LABS: Glucose,Whole Blood 166 mg/dL (75-99)
[2020-11-25] MEDS: PRIMIDONE 50 MG TAB PO SCH (20:21)
[2020-11-25] MEDS: LORATADINE-PSEUDOEPH 5-120 MG 1 EACH TAB.ER.12H PO PRN (20:21)
[2020-11-25] MEDS: PRAVASTATIN SODIUM 40 MG TAB PO SCH (20:22)
[2020-11-25] MEDS: HYDROcodone/APAP 5-325MG 1 EACH TAB PO PRN (20:22)
[2020-11-25] MEDS: PARoxetine 10 MG TAB PO SCH (20:27)
--- NOTE | 2020-11-25 22:19 | P.PN ---
Progress Note - Text Progress Note Date: 11/25/20 Chief Complaint: Palpitation History of presenting complaint: Patient is a 85-year-old female with a known history of with a known history of dementia, , diabetes type 2 [id number], hyperlipidemia, COPD, anxiety/depression and previous history of smoking was brought to the hospital from extended care facility with complaints of shortness of breath, fever and tachycardia and hypoxia. . Patient does have underlying dementia . EMS was called out to the [facility] for increased heart rate. Per the nursing staff heart rate was about 150 this morning. Some medications given with still remained above 100. Patient didn't notice to be short of breath having some palpitations.. He went uses a wheelchair. Not the best of historians. admitted with A. imani patient rapid ventricular rate, COPD exacerbation.acute UTI. Heart rate has been fluctuating. Medications being adjusted. Today-tired. Heart rate remains to be elevated above 120. Tired. Decreased appetite. Review of systems: Was done for constitutional, cardiovascular, GI, pulmonary. relevant finding as above Active Medications Hydrocodone Bitart/Acetaminophen (Hydrocodone/Apap 5-325mg 1 Each Tab) 1 each PO Q8H PRN PRN Reason: Pain Last Admin: 11/25/20 20:22 Dose: 1 each Documented by: Albuterol Sulfate (Albuterol Nebulized 2.5 Mg/3 Ml) 2.5 mg INHALATION RT-QID [facility] Last Admin: 11/25/20 18:56 Dose: 2.5 mg Documented by: Amiodarone HCl (Amiodarone 200 Mg Tab) 200 mg PO BID [facility] Last Admin: 11/25/20 20:21 Dose: 200 mg Documented by: Apixaban (Apixaban 2.5 Mg Tablet) 2.5 mg PO BID@0700,2000 [facility] Last Admin: 11/25/20 20:22 Dose: 2.5 mg Documented by: Cholecalciferol (Cholecalciferol 1,000 Unit Tab) 2,000 unit PO DAILY@0600 [facility] Last Admin: 11/25/20 05:51 Dose: 2,000 unit Documented by: Diltiazem HCl (Diltiazem Oral 60 Mg Tab) 60 mg PO TID [facility] Last Admin: 11/25/20 20:21 Dose: 60 mg Documented by: Duloxetine HCl (Duloxetine Hcl 60 Mg Capsule.) 60 mg PO DAILY@1600 [facility] Last Admin: 11/25/20 16:44 Dose: 60 mg Documented by: Gabapentin (Gabapentin 300 Mg Cap) 600 mg PO BID@ [facility] Last Admin: 11/25/20 20:21 Dose: 600 mg Documented by: Sodium Chloride (Saline 0.9%) 1,000 mls @ 50 mls/hr IV .Q20H [facility] Last Admin: 11/25/20 09:47 Dose: 50 mls/hr Documented by: Insulin Aspart (Insulin Aspart (Novolog) 100 Unit/Ml Vial) 0 unit SQ ACHS [facility]; Protocol Last Admin: 11/25/20 20:28 Dose: Not Given Documented by: Linagliptin (Linagliptin 5 Mg Tablet) 2.5 mg PO BID@ [facility] Last Admin: 11/25/20 20:22 Dose: 2.5 mg Documented by: Loperamide HCl (Loperamide 2 Mg Cap) 4 mg PO DAILY PRN PRN Reason: Diarrhea Last Admin: 11/24/20 15:02 Dose: 4 mg Documented by: Loratadine/Pseudoephedrine Sulfate (Loratadine-Pseudoeph 5-120 Mg 1 Each Tab.Er.12h) 1 each PO Q12HR PRN PRN Reason: Allergy Symptoms Last Admin: 11/25/20 20:21 Dose: 1 each Documented by: Magnesium Oxide (Magnesium Oxide 400 Mg Tab) 400 mg PO BID@ [facility] Last Admin: 11/25/20 20:21 Dose: 400 mg Documented by: Metformin HCl (Metformin 500 Mg Tab) 1,000 mg PO BID@ [facility] Last Admin: 11/25/20 20:21 Dose: 1,000 mg Documented by: Metoprolol Succinate (Metoprolol Succinate (Er) 25 Mg Tab.Er.24h) 75 mg PO TID [facility] Last Admin: 11/25/20 20:22 Dose: 75 mg Documented by: Multivitamins (Multivitamins, Thera 1 Each Tab) 1 each PO DAILY@06 [facility] Last Admin: 11/25/20 05:51 Dose: 1 each Documented by: Naloxone HCl (Naloxone 0.4 Mg/Ml 1 Ml Vial) 0.2 mg IV Q2M PRN PRN Reason: Opioid Reversal Pantoprazole Sodium (Pantoprazole 40 Mg Tablet) 40 mg PO DAILY@07 [facility] Last Admin: 11/25/20 05:51 Dose: 40 mg Documented by: Paroxetine HCl (Paroxetine 10 Mg Tab) 10 mg PO HS@1999 [facility] Last Admin: 11/25/20 20:27 Dose: 10 mg Documented by: Pravastatin Sodium (Pravastatin Sodium 40 Mg Tab) 40 mg PO HS@1999 [facility] Last Admin: 11/25/20 20:22 Dose: 40 mg Documented by: Primidone (Primidone 50 Mg Tab) 100 mg PO HS@1999 [facility] Last Admin: 11/25/20 20:21 Dose: 100 mg Documented by: On examination: VITAL SIGNS: 97, 123, 16, 117/63, 95% room air GENERAL APPEARANCE: Propped up in bed, tired. HEENT: Normal external appearance of nose and ear. Oral cavity normal, decreased hearing EYES: Pupils equal. Conjunctiva normal. NECK: JVD not raised. Mass not palpable. RESPIRATORY: Respiratory effort increased, lungs decreased breath sounds. CARDIOVASCULAR: Irregular heart sounds. No edema. ABDOMEN: Soft. Liver and spleen not palpable. No tenderness. No mass palpable. PSYCHIATRY: Awake, answering simple questions Investigations: November 25: Potassium 4.9 creatinine 0.66 November 24: Potassium 5.5 creatinine 0.7 White count 8.5 hemoglobin 11.7 platelets 323 potassium 5.1 creatinine 0.61 UA positive for nitrite, leukoesterase EKG tracing atrial flutter with [address] segment changes Chest x-ray film personally reviewed by me-lung gonzalez clear Assessment: -Persistent atrial fibrillation with rapid ventricular rate.heart rate variable -remains uncontrolled -Acute COPD some improvement -Alzheimer's dementia late onset type -GERD -Hyperlipidemia -Diabetes mellitus type 2, on oral hypoglycemic -Anxiety depression otherwise specified -Acute UTI with cystitis-complete antibiotic -DO NOT RESUSCITATE -Hyperkalemia. We'll give Kayexalate. Plan: On Cardizem 60 mg 3 times a day , Toprol-XL 75 mg 3 times a day. Amiodarone started. Will CHRIS Hoyt
[2020-11-26 06:01] LABS: Glucose,Whole Blood 196 mg/dL (75-99)
[2020-11-26] MEDS: INSULIN ASPART (NovoLOG) 100 UNIT/ML VIAL SQ SCH ×4 (06:04→20:49)
[2020-11-26] MEDS: MAGNESIUM OXIDE 400 MG TAB PO SCH ×2 (06:07→20:46)
[2020-11-26] MEDS: GABAPENTIN 300 MG CAP PO SCH ×2 (06:07→20:46)
[2020-11-26] MEDS: PANTOPRAZOLE 40 MG TABLET PO SCH (06:08)
[2020-11-26] MEDS: MULTIVITAMINS, THERA 1 EACH TAB PO SCH (06:08)
[2020-11-26] MEDS: CHOLECALCIFEROL 1,000 UNIT TAB PO SCH (06:08)
[2020-11-26] MEDS: APIXABAN 2.5 MG TABLET PO SCH ×2 (06:08→20:48)
[2020-11-26] MEDS: LINAGLIPTIN 5 MG TABLET PO SCH ×2 (06:08→20:47)
[2020-11-26] MEDS: metFORMIN 500 MG TAB PO SCH ×2 (06:08→20:47)
[2020-11-26] MEDS: ALBUTEROL NEBULIZED 2.5 MG/3 ML INHALATION SCH ×4 (08:22→22:05)
[2020-11-26] MEDS: HYDROcodone/APAP 5-325MG 1 EACH TAB PO PRN ×2 (08:48→20:46)
[2020-11-26] MEDS: METOPROLOL SUCCINATE (ER) 25 MG TAB.ER.24H PO SCH ×3 (08:48→20:48)
[2020-11-26] MEDS: DILTIAZEM ORAL 60 MG TAB PO SCH ×3 (08:49→20:48)
[2020-11-26] MEDS: AMIODARONE 200 MG TAB PO SCH (08:49)
[2020-11-26 11:31] LABS: Glucose,Whole Blood 124 mg/dL (75-99)
[2020-11-26] MEDS ORDERED: DEXTROSE 5% IN WATER 100 ML with AMIODARONE 150 MG IV ONE (13:30)
[2020-11-26] MEDS ORDERED: AMIODARONE 360 MG in DEXTROSE 5% IN WATER 200 ML IV ONE ×2 (13:30)
--- NOTE | 2020-11-26 14:26 | P.PN ---
Subjective Progress Note Date: 11/26/20 HISTORY OF PRESENT ILLNESS: Patient examined this morning at the bedside. She remains in atrial fibrillation with uncontrolled ventricular rates. Patient is currently receiving Cardizem 60 mg 3 times a day, Toprol-XL 75 mg 3 times a day and amiodarone 200 mg twice a day. She denies chest pain or pressure. She denies shortness of breath. She denies feeling any palpitations. PHYSICAL EXAM: VITAL SIGNS: Reviewed. GENERAL: Well-developed in no acute distress. NECK: Supple. No JVD or thyromegaly LUNGS: Respirations even and unlabored. Lungs essentially clear to auscultation bilaterally. HEART: Irregular rate and rhythm. S1 and S2 heard. EXTREMITIES: Normal range of motion. No clubbing or cyanosis. Peripheral pulses intact. No lower extremity edema ASSESSMENT: Chronic persistent atrial fibrillation with rapid ventricular rates COPD Diabetes mellitus Hyperlipidemia PLAN: Continue current cardiac medications Continue Eliquis Begin IV amiodarone bolus and drip per protocol NPO at midnight Patient to undergo ROBB and cardioversion tomorrow with Dr. Zepeda Nurse practitioner note has been reviewed by physician. Signing provider agrees with the documented findings, assessment, and plan of care. Objective - Vital Signs Vital signs: Vital Signs Temp 96.5 F L 11/26/20 12:55 Pulse 111 H 11/26/20 12:55 Resp 16 11/26/20 12:55 BP 133/55 11/26/20 12:55 Pulse Ox 96 11/26/20 12:55 Intake & Output 11/25/20 11/26/20 11/26/20 18:59 06:59 18:59 Intake Total 240 420 Balance 240 420 Weight 56.5 kg Intake: Oral 240 420 Other: Voiding Method Diaper Diaper Diaper Incontinent Incontinent Incontinent # Voids 2 1 2 - Labs CBC & Chem 7: 11/19/20 17:30 11/25/20 07:17 Labs: Abnormal Lab Results - Last 24 Hours (Table) 11/25/20 11/25/20 11/26/20 Range/Units 16:44 20:20 06:00 POC Glucose (mg/dL) 114 H 166 H 196 H (75-99) mg/dL 11/26/20 Range/Units 11:30 POC Glucose (mg/dL) 124 H (75-99) mg/dL
[2020-11-26 16:39] LABS: Glucose,Whole Blood 136 mg/dL (75-99)
[2020-11-26] MEDS: DULoxetine HCL 60 MG CAPSULE.DR PO SCH (17:22)
[2020-11-26 20:12] LABS: Glucose,Whole Blood 139 mg/dL (75-99)
[2020-11-26] MEDS: PRIMIDONE 50 MG TAB PO SCH (20:46)
[2020-11-26] MEDS: PRAVASTATIN SODIUM 40 MG TAB PO SCH (20:48)
[2020-11-26] MEDS: PARoxetine 10 MG TAB PO SCH (20:48)
--- NOTE | 2020-11-26 21:02 | P.PN ---
Progress Note - Text Progress Note Date: 11/26/20 Chief Complaint: Palpitation History of presenting complaint: Patient is a 85-year-old female with a known history of with a known history of dementia, , diabetes type 2 [id number], hyperlipidemia, COPD, anxiety/depression and previous history of smoking was brought to the hospital from extended care facility with complaints of shortness of breath, fever and tachycardia and hypoxia. . Patient does have underlying dementia . EMS was called out to the [facility] for increased heart rate. Per the nursing staff heart rate was about 150 this morning. Some medications given with still remained above 100. Patient didn't notice to be short of breath having some palpitations.. He went uses a wheelchair. Not the best of historians. admitted with A. imani patient rapid ventricular rate, COPD exacerbation.acute UTI. Heart rate has been fluctuating. Medications being adjusted. Today-heart rate remains elevated. Tired. Breathing stable. Review of systems: Was done for constitutional, cardiovascular, GI, pulmonary. relevant finding as above Active Medications Hydrocodone Bitart/Acetaminophen (Hydrocodone/Apap 5-325mg 1 Each Tab) 1 each PO Q8H PRN PRN Reason: Pain Last Admin: 11/26/20 20:46 Dose: 1 each Documented by: Albuterol Sulfate (Albuterol Nebulized 2.5 Mg/3 Ml) 2.5 mg INHALATION RT-QID [facility] Last Admin: 11/26/20 15:47 Dose: Not Given Documented by: Apixaban (Apixaban 2.5 Mg Tablet) 2.5 mg PO BID@699,1999 [facility] Last Admin: 11/26/20 20:48 Dose: 2.5 mg Documented by: Cholecalciferol (Cholecalciferol 1,000 Unit Tab) 2,000 unit PO DAILY@0600 [facility] Last Admin: 11/26/20 06:08 Dose: 2,000 unit Documented by: Diltiazem HCl (Diltiazem Oral 60 Mg Tab) 60 mg PO TID [facility] Last Admin: 11/26/20 20:48 Dose: 60 mg Documented by: Duloxetine HCl (Duloxetine Hcl 60 Mg Capsule.) 60 mg PO DAILY@1600 [facility] Last Admin: 11/26/20 17:22 Dose: 60 mg Documented by: Gabapentin (Gabapentin 300 Mg Cap) 600 mg PO BID@07 [facility] Last Admin: 11/26/20 20:46 Dose: 600 mg Documented by: Sodium Chloride (Saline 0.9%) 1,000 mls @ 50 mls/hr IV .Q20H [facility] Last Admin: 11/25/20 09:47 Dose: 50 mls/hr Documented by: Amiodarone HCl 450 mg/ (Dextrose/Water) 250 mls @ 16.667 mls/hr IV .Q15H [facility]; Protocol Stop: 11/27/20 13:29 Insulin Aspart (Insulin Aspart (Novolog) 100 Unit/Ml Vial) 0 unit SQ ACHS [facility]; Protocol Last Admin: 11/26/20 20:49 Dose: Not Given Documented by: Linagliptin (Linagliptin 5 Mg Tablet) 2.5 mg PO BID@ [facility] Last Admin: 11/26/20 20:47 Dose: 2.5 mg Documented by: Loperamide HCl (Loperamide 2 Mg Cap) 4 mg PO DAILY PRN PRN Reason: Diarrhea Last Admin: 11/24/20 15:02 Dose: 4 mg Documented by: Magnesium Oxide (Magnesium Oxide 400 Mg Tab) 400 mg PO BID@ [facility] Last Admin: 11/26/20 20:46 Dose: 400 mg Documented by: Metformin HCl (Metformin 500 Mg Tab) 1,000 mg PO BID@ [facility] Last Admin: 11/26/20 20:47 Dose: 1,000 mg Documented by: Metoprolol Succinate (Metoprolol Succinate (Er) 25 Mg Tab.Er.24h) 75 mg PO TID [facility] Last Admin: 11/26/20 20:48 Dose: 75 mg Documented by: Multivitamins (Multivitamins, Thera 1 Each Tab) 1 each PO DAILY@06 [facility] Last Admin: 11/26/20 06:08 Dose: 1 each Documented by: Naloxone HCl (Naloxone 0.4 Mg/Ml 1 Ml Vial) 0.2 mg IV Q2M PRN PRN Reason: Opioid Reversal Pantoprazole Sodium (Pantoprazole 40 Mg Tablet) 40 mg PO DAILY@07 [facility] Last Admin: 11/26/20 06:08 Dose: 40 mg Documented by: Paroxetine HCl (Paroxetine 10 Mg Tab) 10 mg PO HS@1999 [facility] Last Admin: 11/26/20 20:48 Dose: 10 mg Documented by: Pravastatin Sodium (Pravastatin Sodium 40 Mg Tab) 40 mg PO HS@1999 [facility] Last Admin: 11/26/20 20:48 Dose: 40 mg Documented by: Primidone (Primidone 50 Mg Tab) 100 mg PO HS@1999 [facility] Last Admin: 11/26/20 20:46 Dose: 100 mg Documented by: On examination: VITAL SIGNS: 96.3, 121, 18, 116/64, 96% room air GENERAL APPEARANCE: Reclining in bed, tired. HEENT: Normal external appearance of nose and ear. Oral cavity normal, decreased hearing EYES: Pupils equal. Conjunctiva normal. NECK: JVD not raised. Mass not palpable. RESPIRATORY: Respiratory effort increased, lungs decreased breath sounds. CARDIOVASCULAR: Irregular heart sounds. No edema. ABDOMEN: Soft. Liver and spleen not palpable. No tenderness. No mass palpable. PSYCHIATRY: Awake, answering simple questions Investigations: November 25: Potassium 4.9 creatinine 0.66 November 24: Potassium 5.5 creatinine 0.7 White count 8.5 hemoglobin 11.7 platelets 323 potassium 5.1 creatinine 0.61 UA positive for nitrite, leukoesterase EKG tracing atrial flutter with [address] segment changes Chest x-ray film personally reviewed by me-lung gonzalez clear Assessment: -Persistent atrial fibrillation with rapid ventricular rate.heart rate variable -remains uncontrolled -Acute COPD exacerbation some improvement -Alzheimer's dementia late onset type -GERD -Hyperlipidemia -Diabetes mellitus type 2, on oral hypoglycemic -Anxiety depression otherwise specified -Acute UTI with cystitis-completed antibiotic -DO NOT RESUSCITATE -Hyperkalemia. We'll give Kayexalate.-Improved Plan: On Cardizem 60 mg 3 times a day , Toprol-XL 75 mg 3 times a day. Discussed with Dr. Bowers from cardiology. Patient to be placed on IV amiodarone. No improvement and consider cardioversion.
[2020-11-26] MEDS: AMIODARONE 450 MG in DEXTROSE 5% IN WATER 250 ML IV SCH ×2 (21:18)
[2020-11-26] MEDS: SODIUM CHLORIDE 0.9% 1,000 ML IV SCH (21:21)
[2020-11-27 06:08] LABS: Glucose,Whole Blood 122 mg/dL (75-99)
[2020-11-27] MEDS: MULTIVITAMINS, THERA 1 EACH TAB PO SCH (06:16)
[2020-11-27] MEDS: CHOLECALCIFEROL 1,000 UNIT TAB PO SCH (06:16)
[2020-11-27] MEDS: GABAPENTIN 300 MG CAP PO SCH ×3 (06:16→22:27)
[2020-11-27] MEDS: METOPROLOL SUCCINATE (ER) 25 MG TAB.ER.24H PO SCH ×2 (06:16→15:06)
[2020-11-27] MEDS: APIXABAN 2.5 MG TABLET PO SCH ×2 (06:16→20:13)
[2020-11-27] MEDS: PANTOPRAZOLE 40 MG TABLET PO SCH (06:16)
[2020-11-27] MEDS: DILTIAZEM ORAL 60 MG TAB PO SCH ×3 (06:17→22:26)
[2020-11-27] MEDS: MAGNESIUM OXIDE 400 MG TAB PO SCH ×2 (06:17→20:13)
[2020-11-27] MEDS: LINAGLIPTIN 5 MG TABLET PO SCH ×2 (08:04→20:13)
[2020-11-27] MEDS: INSULIN ASPART (NovoLOG) 100 UNIT/ML VIAL SQ SCH ×4 (08:05→20:09)
[2020-11-27] MEDS: metFORMIN 500 MG TAB PO SCH ×2 (08:05→20:14)
[2020-11-27] MEDS: ALBUTEROL NEBULIZED 2.5 MG/3 ML INHALATION SCH ×4 (08:39→19:35)
[2020-11-27 11:27] LABS: Glucose,Whole Blood 155 mg/dL (75-99)
[2020-11-27] MEDS: AMIODARONE 450 MG in DEXTROSE 5% IN WATER 250 ML IV SCH ×2 (12:18)
[2020-11-27] MEDS ORDERED: SODIUM CHLORIDE 0.9% 1,000 ML IV ONE ×2 (12:50)
[2020-11-27] MEDS ORDERED: PROPOFOL 10 MG/ML 20 ML VIAL IV ONE (13:00)
[2020-11-27] MEDS ORDERED: BENZOCAINE SPRAY 1 CAN TOPICAL ONE (13:04)
[2020-11-27] MEDS: SODIUM CHLORIDE 0.9% 1,000 ML IV SCH (15:06)
[2020-11-27] MEDS: DULoxetine HCL 60 MG CAPSULE.DR PO SCH (15:06)
[2020-11-27] MEDS ORDERED: DIGOXIN 250 MCG/ML 2 ML AMP IVP STA (16:33)
--- NOTE | 2020-11-27 16:33 | P.TEE ---
Description of Procedure(s): Procedure performed: Transesophageal Echocardiogram with color flow doppler, pulsed wave doppler and continuous wave doppler, moderate conscious sedation Moderate conscious sedation: Moderate conscious sedation was supplied with direct supervision of myself using Versed and Fentanyl. Complications: none Indications: A. fib with RVR History: Patient is a pleasant 85-year-old female with history of COPD, diabetes mellitus, persistent atrial fibrillation, hyperlipidemia, diastolic heart failure who presented secondary to shortness breath and was found to be in A. fib with mild RVR. Patient has been attempted on high doses of calcium channel blockers and beta blockers without adequate rate control. Therefore recommendat ions were for possible ROBB cardioversion. Patient has been on anticoagulation. PROCEDURE: After the risks, benefits and alternatives of the above mentioned procedure was explained in detail with the patient, informed consent was obtained. Patient was brought to the lab in a fasting state. Patient was given IV Versed and Fentanyl for sedation. The throat was sprayed with Hurricane to anesthetize the throat. A lubricated Omni probe was then introduced into the esophagus and stomach and multiple views were obtained. 2D echo with color flow doppler, pulsed wave doppler and continuous wave doppler was utilized. Agitated saline bubbles were injected to assess for any intra-atrial shunt. The probe was then removed. Patient was noted to have a left atrial appendage thrombus and therefore no cardioversion was performed. Patient tolerated the procedure well. Patient was transferred to the post procedure area in stable and satisfactory condition. FINDINGS: 1. The aortic valve is tricuspid with mild sclerosis without significant aortic stenosis. There is trace aortic insufficiency. 2. The mitral valve appears be normal moderate mitral regurgitation. There is systolic blunting of the left upper pulmonary vein however no systolic flow reversal. 3. Tricuspid valve appears to be normal with moderate to severe tricuspid regurgitation.. 4. The interatrial septum is intact. No evidence of PFO by color Doppler or bubble study 5. Left atrial appendage has a 1.0 x 1.0 cm mobile echodensity consistent with a GURU thrombus. 6. Left ventricular size and function appear to be normal with ejection fraction 55% without wall motion abnormalities. 7. Left atrium is severely dilated
[2020-11-27 16:46] LABS: Glucose,Whole Blood 171 mg/dL (75-99)
[2020-11-27 20:06] LABS: Glucose,Whole Blood 95 mg/dL (75-99)
--- NOTE | 2020-11-27 20:11 | P.PN ---
Progress Note - Text Progress Note Date: 11/27/20 Chief Complaint: Palpitation History of presenting complaint: Patient is a 85-year-old female with a known history of with a known history of dementia, , diabetes type 2 [id number]-siymdhqpc, hyperlipidemia, COPD, anxiety/depression and previous history of smoking was brought to the hospital from extended care facility with complaints of shortness of breath, fever and tachycardia and hypoxia. . Patient does have underlying dementia . EMS was called out to the [facility] for increased heart rate. Per the nursing staff heart rate was about 150 this morning. Some medications given with still remained above 100. Patient didn't notice to be short of breath having some palpitations.. He went uses a wheelchair. Not the best of historians. admitted with A. imani patient rapid ventricular rate, COPD exacerbation.acute UTI. Heart rate has been fluctuating. Medications being adjusted. Today-underwent ROBB -left atrial thrombus found. Cardioversion was therefore not done... Review of systems: Was done for constitutional, cardiovascular, GI, pulmonary. relevant finding as above Active Medications Hydrocodone Bitart/Acetaminophen (Hydrocodone/Apap 5-325mg 1 Each Tab) 1 each PO Q8H PRN PRN Reason: Pain Last Admin: 11/26/20 20:46 Dose: 1 each Documented by: Albuterol Sulfate (Albuterol Nebulized 2.5 Mg/3 Ml) 2.5 mg INHALATION RT-QID [facility] Last Admin: 11/27/20 19:35 Dose: Not Given Documented by: Apixaban (Apixaban 2.5 Mg Tablet) 2.5 mg PO BID@0700,2000 [facility] Last Admin: 11/27/20 06:16 Dose: 2.5 mg Documented by: Cholecalciferol (Cholecalciferol 1,000 Unit Tab) 2,000 unit PO DAILY@0600 [facility] Last Admin: 11/27/20 06:16 Dose: 2,000 unit Documented by: Digoxin (Digoxin 250 Mcg/Ml 2 Ml Amp) 250 mcg IVP Q6H [facility] Stop: 11/28/20 05:01 Digoxin (Digoxin 250 Mcg Tab) 250 mcg PO DAILY [facility] Diltiazem HCl (Diltiazem Oral 60 Mg Tab) 60 mg PO TID [facility] Last Admin: 11/27/20 15:06 Dose: 60 mg Documented by: Duloxetine HCl (Duloxetine Hcl 60 Mg Capsule.) 60 mg PO DAILY@1600 [facility] Last Admin: 11/27/20 15:06 Dose: 60 mg Documented by: Gabapentin (Gabapentin 300 Mg Cap) 600 mg PO BID@ [facility] Last Admin: 11/27/20 06:16 Dose: 600 mg Documented by: Sodium Chloride (Saline 0.9%) 1,000 mls @ 50 mls/hr IV .Q20H [facility] Last Admin: 11/27/20 15:06 Dose: 50 mls/hr Documented by: Insulin Aspart (Insulin Aspart (Novolog) 100 Unit/Ml Vial) 0 unit SQ ACHS [facility]; Protocol Last Admin: 11/27/20 16:48 Dose: 2 unit Documented by: Linagliptin (Linagliptin 5 Mg Tablet) 2.5 mg PO BID@ [facility] Last Admin: 11/27/20 08:04 Dose: Not Given Documented by: Loperamide HCl (Loperamide 2 Mg Cap) 4 mg PO DAILY PRN PRN Reason: Diarrhea Last Admin: 11/24/20 15:02 Dose: 4 mg Documented by: Magnesium Oxide (Magnesium Oxide 400 Mg Tab) 400 mg PO BID@ [facility] Last Admin: 11/27/20 06:17 Dose: 400 mg Documented by: Metformin HCl (Metformin 500 Mg Tab) 1,000 mg PO BID@ [facility] Last Admin: 11/27/20 08:05 Dose: Not Given Documented by: Metoprolol Succinate (Metoprolol Succinate (Er) 25 Mg Tab.Er.24h) 75 mg PO TID [facility] Last Admin: 11/27/20 15:06 Dose: 75 mg Documented by: Multivitamins (Multivitamins, Thera 1 Each Tab) 1 each PO DAILY@06 [facility] Last Admin: 11/27/20 06:16 Dose: 1 each Documented by: Naloxone HCl (Naloxone 0.4 Mg/Ml 1 Ml Vial) 0.2 mg IV Q2M PRN PRN Reason: Opioid Reversal Pantoprazole Sodium (Pantoprazole 40 Mg Tablet) 40 mg PO DAILY@07 [facility] Last Admin: 11/27/20 06:16 Dose: 40 mg Documented by: Paroxetine HCl (Paroxetine 10 Mg Tab) 10 mg PO HS@1999 [facility] Last Admin: 11/26/20 20:48 Dose: 10 mg Documented by: Pravastatin Sodium (Pravastatin Sodium 40 Mg Tab) 40 mg PO HS@1999 [facility] Last Admin: 11/26/20 20:48 Dose: 40 mg Documented by: Primidone (Primidone 50 Mg Tab) 100 mg PO HS@1999 [facility] Last Admin: 11/26/20 20:46 Dose: 100 mg Documented by: On examination: VITAL SIGNS:98.2, 118, 18, 136 bradycardia, 99% room air GENERAL APPEARANCE:laying in bed, tired. HEENT: Normal external appearance of nose and ear. Oral cavity normal, d ecreased hearing EYES: Pupils equal. Conjunctiva normal. NECK: JVD not raised. Mass not palpable. RESPIRATORY: Respiratory effort increased, lungs decreased breath sounds. CARDIOVASCULAR: Irregular heart sounds. No edema. ABDOMEN: Soft. Liver and spleen not palpable. No tenderness. No mass palpable. PSYCHIATRY: Awake, answering simple questions Investigations: ROBB-left atrial thrombus.moderate mitral regurgitation,moderate to severe tricuspid regurgitation.no PFO. EF 55%. November 25: Potassium 4.9 creatinine 0.66 November 24: Potassium 5.5 creatinine 0.7 White count 8.5 hemoglobin 11.7 platelets 323 potassium 5.1 creatinine 0.61 UA positive for nitrite, leukoesterase EKG tracing atrial flutter with [address] segment changes Chest x-ray film personally reviewed by me-lung gonzalez clear 2-D echocardiogram-EF 55-60%. Assessment: -Persistent atrial fibrillation with rapid ventricular rate.heart rate variable -remains uncontrolled -Left atrial thrombus -Moderate mitral and tricuspid regurgitation -Acute COPD exacerbation -better -Alzheimer's dementia late onset type -GERD -Hyperlipidemia -Diabetes mellitus type 2, on oral hypoglycemic -Anxiety depression otherwise specified -Acute UTI with cystitis-completed antibiotic -DO NOT RESUSCITATE -Hyperkalemia. We'll give Kayexalate.-Improved Plan: On Cardizem 60 mg 3 times a day , Toprol-XL 75 mg 3 times a day. placed on digoxin by cardiology. Change Lopressor to short-acting form.decreased dose of Neurontin.
[2020-11-27] MEDS: PRAVASTATIN SODIUM 40 MG TAB PO SCH (20:13)
[2020-11-27] MEDS: PARoxetine 10 MG TAB PO SCH (20:13)
[2020-11-27] MEDS: PRIMIDONE 50 MG TAB PO SCH (20:14)
[2020-11-27] MEDS: METOPROLOL TARTRATE 50 MG TAB PO SCH (22:26)
[2020-11-27] MEDS: HYDROcodone/APAP 5-325MG 1 EACH TAB PO PRN (22:27)
[2020-11-27] MEDS: DIGOXIN 250 MCG/ML 2 ML AMP IVP SCH (22:27)
[2020-11-28 03:28] VITALS: RESP 18
[2020-11-28 05:57] LABS: Glucose,Whole Blood 190 mg/dL (75-99)
[2020-11-28] MEDS: DIGOXIN 250 MCG/ML 2 ML AMP IVP SCH (06:05)
[2020-11-28] MEDS: MAGNESIUM OXIDE 400 MG TAB PO SCH (06:05)
[2020-11-28] MEDS: APIXABAN 2.5 MG TABLET PO SCH (06:05)
[2020-11-28] MEDS: CHOLECALCIFEROL 1,000 UNIT TAB PO SCH (06:05)
[2020-11-28] MEDS: LINAGLIPTIN 5 MG TABLET PO SCH (06:05)
[2020-11-28] MEDS: PANTOPRAZOLE 40 MG TABLET PO SCH (06:05)
[2020-11-28] MEDS: MULTIVITAMINS, THERA 1 EACH TAB PO SCH (06:05)
[2020-11-28] MEDS: INSULIN ASPART (NovoLOG) 100 UNIT/ML VIAL SQ SCH ×2 (06:06→12:25)
[2020-11-28] MEDS: metFORMIN 500 MG TAB PO SCH (06:06)
[2020-11-28 07:26] LABS: Calcium 8.7 mg/dL (8.4-10.2)
[2020-11-28] MEDS: METOPROLOL TARTRATE 50 MG TAB PO SCH ×2 (08:13→15:20)
[2020-11-28] MEDS: DILTIAZEM ORAL 60 MG TAB PO SCH ×2 (08:13→15:20)
[2020-11-28] MEDS: GABAPENTIN 300 MG CAP PO SCH ×2 (08:13→15:20)
[2020-11-28] MEDS: ALBUTEROL NEBULIZED 2.5 MG/3 ML INHALATION SCH ×3 (08:27→16:16)
[2020-11-28 11:54] VITALS: BP 137/67; PULSE 69; TEMP 97.9
[2020-11-28 12:24] LABS: Glucose,Whole Blood 115 mg/dL (75-99)
[2020-11-28] MEDS: SODIUM CHLORIDE 0.9% 1,000 ML IV SCH (12:25)
--- NOTE | 2020-11-28 14:16 | P.PN ---
<Cris Nichole - Last Filed: 11/28/20 14:11> Subjective Progress Note Date: 11/28/20 HISTORY OF PRESENT ILLNESS: Patient examined this morning at the bedside. Patient was scheduled for ROBB and cardioversion yesterday. Patient was found to have a left atrial appendage thrombus and cardioversion was canceled. Digoxin was added to patient's medication regimen. Patient's heart rate is much more controlled today. Currently running in the low 100s. She denies chest pain or pressure. Denies shortness of breath. Denies palpitations. PHYSICAL EXAM: VITAL SIGNS: Reviewed. GENERAL: Well-developed in no acute distress. NECK: Supple. No JVD or thyromegaly LUNGS: Respirations even and unlabored. Lungs essentially clear to auscultation bilaterally. HEART: Irregular rate and rhythm. S1 and S2 heard. EXTREMITIES: Normal range of motion. No clubbing or cyanosis. Peripheral pulses intact. No lower extremity edema ASSESSMENT: Chronic persistent atrial fibrillation with rapid ventricular rates, on anticoagulation with Eliquis Left atrial appendage thrombus COPD Diabetes mellitus Hyperlipidemia PLAN: Continue current cardiac medications Continue Eliquis Continue digoxin, Cardizem, and metoprolol Avoid amiodarone secondary to thrombus Further recommendations pending patient's course Nurse practitioner note has been reviewed by physician. Signing provider agrees with the documented findings, assessment, and plan of care. Objective - Vital Signs Vital signs: Vital Signs Temp 97.9 F 11/28/20 11:52 Pulse 69 11/28/20 13:01 Resp 18 11/28/20 13:01 BP 137/67 11/28/20 11:52 Pulse Ox 93 L 11/28/20 11:52 Intake & Output 11/27/20 11/28/20 11/28/20 18:59 06:59 18:59 Intake Total 540 Balance 540 Weight 78 kg Intake: IV 50 Intake, IV Titration 250 Amount Amiodarone 450 mg In 250 Dextrose 5% in Water 250 ml @ 0.5 MG/MIN 16.667 mls/hr IV .Q15H [facility] Rx#: [id number] Oral 240 Other: Voiding Method Diaper Diaper Diaper Incontinent Incontinent Incontinent # Voids 1 1 2 - Labs CBC & Chem 7: 11/19/20 17:30 11/28/20 06:55 Labs: Abnormal Lab Results - Last 24 Hours (Table) 11/27/20 11/28/20 11/28/20 Range/Units 16:44 05:55 06:55 Glucose 179 H (74-99) mg/dL POC Glucose (mg/dL) 171 H 190 H (75-99) mg/dL 11/28/20 Range/Units 12:22 Glucose (74-99) mg/dL POC Glucose (mg/dL) 115 H (75-99) mg/dL <Anthony Bowers - Last Filed: 11/28/20 16:58> Subjective Patient admitted to some nausea today however no SOB. Her HR's are much better controlled today. If vitals remain stable, patient may likely be discharged from a cardiology standpoint on digoxin and current regimen. Anthony Bowers, Objective - Vital Signs Vital signs: Vital Signs Temp 97.9 F 11/28/20 11:52 Pulse 69 11/28/20 13:01 Resp 18 11/28/20 13:01 BP 137/67 11/28/20 11:52 Pulse Ox 93 L 11/28/20 11:52 Intake & Output 11/27/20 11/28/20 11/28/20 18:59 06:59 18:59 Intake Total 540 Balance 540 Weight 78 kg Intake: IV 50 Intake, IV Titration 250 Amount Amiodarone 450 mg In 250 Dextrose 5% in Water 250 ml @ 0.5 MG/MIN 16.667 mls/hr IV .Q15H [facility] Rx#: [id number] Oral 240 Other: Voiding Method Diaper Diaper Diaper Incontinent Incontinent Incontinent # Voids 1 1 2 - Labs CBC & Chem 7: 11/19/20 17:30 11/28/20 06:55 Labs: Abnormal Lab Results - Last 24 Hours (Table) 11/28/20 11/28/20 11/28/20 Range/Units 05:55 06:55 12:22 Glucose 179 H (74-99) mg/dL POC Glucose (mg/dL) 190 H 115 H (75-99) mg/dL
--- NOTE | 2020-11-28 14:57 | P.DS ---
Providers Date of admission: 11/21/20 14:24 Expected date of discharge: 11/28/20 Attending physician: Shawn Lim Consults: 11/19/20 19:18 Consult Physician Urgent Consulting Provider: Prosper Zepeda Consult Reason/Comments: Atrial flutter with rvr Do you want consulting provider notified?: Yes Primary care physician: [facility] Course: Chief Complaint: Palpitation History of presenting complaint: Patient is a 85-year-old female with a known history of with a known history of dementia, , diabetes type 2 [id number], hyperlipidemia, COPD, anxiety/depression and previous history of smoking was brought to the hospital from extended care facility with complaints of shortness of breath, fever and tachycardia and hypoxia. . Patient does have underlying dementia . EMS was called out to the [facility] for increased heart rate. Per the nursing staff heart rate was about 150 this morning. Some medications given with still remained above 100. Patient didn't notice to be short of breath having some palpitations.. He went uses a wheelchair. Not the best of historians. admitted with A. fib patient rapid ventricular rate, COPD exacerbation.acute UTI. Heart rate has been fluctuating. Medications being adjusted.ROBB -left atrial thrombus found. Cardioversion was therefore not done. Today-..heart rate controlled today. Breathing stable. Discussed with Dr. Bowers from cardiology. Will DC patient. Discussion and discharge planning more than 35 minutes systems development consultant: [facility] On examination: VITAL SIGNS:97.9, 69, 18, 137/67, 93% room air GENERAL APPEARANCE:laying in bed, tired. HEENT: Normal external appearance of nose and ear. Oral cavity normal, decreased hearing EYES: Pupils equal. Conjunctiva normal. NECK: JVD not raised. Mass not palpable. RESPIRATORY: Respiratory effort increased, lungs decreased breath sounds. CARDIOVASCULAR: Irregular heart sounds. No edema. ABDOMEN: Soft. Liver and spleen not palpable. No tenderness. No mass palpable. PSYCHIATRY: Awake, answering simple questions Investigations: Generally 13: Potassium 4 creatinine 0.86 ROBB-left atrial thrombus.moderate mitral regurgitation,moderate to severe tricuspid regurgitation.no PFO. EF 55%. November 25: Potassium 4.9 creatinine 0.66 November 24: Potassium 5.5 creatinine 0.7 White count 8.5 hemoglobin 11.7 platelets 323 potassium 5.1 creatinine 0.61 UA positive for nitrite, leukoesterase EKG tracing atrial flutter with [address] segment changes Chest x-ray film personally reviewed by me-lung gonzalez clear 2-D echocardiogram-EF 55-60%. Assessment: -Persistent atrial fibrillation with rapid ventricular rate.heart rate variable -POA -Left atrial thrombus -Moderate mitral and tricuspid regurgitation -Acute COPD exacerbation -Alzheimer's dementia late onset type -GERD -Hyperlipidemia -Diabetes mellitus type 2, on oral hypoglycemic -Anxiety depression otherwise specified -Acute UTI with cystitis-completed antibiotic -DO NOT RESUSCITATE -Hyperkalemia. .-Improved disposition: [facility] Patient Condition at Discharge: Stable Plan - Discharge Summary Discharge Rx Participant: No New Discharge Prescriptions: New Diltiazem Oral [Cardizem*] 60 mg PO TID tab Digoxin [Lanoxin] 250 mcg PO DAILY tab Metoprolol Tartrate [Lopressor] 50 mg PO TID tab Gabapentin [Neurontin] 300 mg PO TID #9 cap Albuterol Nebulized [Ventolin Nebulized] 2.5 mg INHALATION TID ml Continue Magnesium Oxide [Mag-Ox] 400 mg PO BID@0700,2000 Linagliptin/Metformin HCl [Jentadueto 2.5 mg-1000 mg Tab] 1 tab PO BID@0700,1999 Primidone [Mysoline] 100 mg PO HS@2000 Pravastatin Sodium [Pravachol] 40 mg PO HS@2000 Omeprazole 20 mg PO DAILY@0700 DULoxetine HCL [Cymbalta] 60 mg PO DAILY@1600 Loperamide [Imodium] 4 mg PO DAILY PRN PRN Reason: Diarrhea Apixaban [Eliquis] 2.5 mg PO BID@0700,1999 Cholecalciferol [Vitamin D3 (25 Mcg = 1000 Iu)] 2,000 unit PO DAILY@0600 PARoxetine HCL [Paxil] 10 mg PO HS@2000 Multivitamins, Thera [Multivitamin (formulary)] 1 tab PO DAILY@0600 HYDROcodone/APAP 5-325MG [[place] 5-325] 1 tab PO Q8H PRN #9 tab PRN Reason: Pain Discontinued Diltiazem HCl 120 mg PO TID@0700,1200,1800 Gabapentin [Neurontin] 600 mg PO BID@0700,2000 Metoprolol Succinate [Toprol XL] 25 mg PO DAILY@0800 Discharge Medication List DULoxetine HCL [Cymbalta] 60 mg PO DAILY@1600 08/01/19 [History] Linagliptin/Metformin HCl [Jentadueto 2.5 mg-1000 mg Tab] 1 tab PO BID@0700,199908/01/19 [History] Magnesium Oxide [Mag-Ox] 400 mg PO BID@0700,199908/01/19 [History] Omeprazole 20 mg PO DAILY@0700 08/01/19 [History] Pravastatin Sodium [Pravachol] 40 mg PO HS@199908/01/19 [History] Primidone [Mysoline] 100 mg PO HS@199908/01/19 [History] Apixaban [Eliquis] 2.5 mg PO BID@699,199911/19/20 [History] Cholecalciferol [Vitamin D3 (25 Mcg = 1000 Iu)] 2,000 unit PO DAILY@0600 11/19/20 [History] Loperamide [Imodium] 4 mg PO DAILY PRN 11/19/20 [History] Multivitamins, Thera [Multivitamin (formulary)] 1 tab PO DAILY@0600 11/19/20 [History] PARoxetine HCL [Paxil] 10 mg PO HS@199911/19/20 [History] Albuterol Nebulized [Ventolin Nebulized] 2.5 mg INHALATION TID ml 11/28/20 [Rx] Digoxin [Lanoxin] 250 mcg PO DAILY tab 11/28/20 [Rx] Diltiazem Oral [Cardizem*] 60 mg PO TID tab 11/28/20 [Rx] Gabapentin [Neurontin] 300 mg PO TID #9 cap 11/28/20 [Rx] HYDROcodone/APAP 5-325MG [[place] 5-325] 1 tab PO Q8H PRN #9 tab 11/28/20 [Rx] Metoprolol Tartrate [Lopressor] 50 mg PO TID tab 11/28/20 [Rx] Follow up Appointment(s)/Referral(s): cardiology,dr [Other] - 1 Week Prosper Zepeda MD [STAFF PHYSICIAN] - 1 Week Gregorio Bhatia DO [Primary Care Provider] - 1-2 days Patient Instructions/Handouts: A-fib (Atrial Fibrillation) (DC)
[2020-11-28] MEDS: DULoxetine HCL 60 MG CAPSULE.DR PO SCH (15:20)
[2020-11-29] MEDS ORDERED: DIGOXIN 250 MCG TAB PO SCH (09:00)
== END 2020-11-28 18:15 | DRG 309 ==
LOC: EC 16:22 → 1SOBS 19:17 → 3SCARD 11-20 02:23 → OBSVTOIN 11-21 14:24 → EEVIPCON 11-21 14:24
PROVIDERS: ADMIT Hospitalist; ATTEND Hospitalist
DX: I48.19 Other persistent atrial fibrillation (principal); J44.1 Chronic obstructive pulmonary disease with (acute) exacerbation; I48.3 Typical atrial flutter; Z66 Do not resuscitate; K21.9 Gastro-esophageal reflux disease without esophagitis; F41.8 Other specified anxiety disorders; F02.80 Dementia in other diseases classified elsewhere, unspecified severity, without behavioral disturbance, psychotic disturbance, mood disturbance, and anxiety; E78.5 Hyperlipidemia, unspecified; E11.9 Type 2 diabetes mellitus without complications; Z20.822 Contact with and (suspected) exposure to COVID-19; G30.1 Alzheimer's disease with late onset; I08.1 Rheumatic disorders of both mitral and tricuspid valves; N30.90 Cystitis, unspecified without hematuria; I25.10 Atherosclerotic heart disease of native coronary artery without angina pectoris; E87.5 Hyperkalemia; I51.3 Intracardiac thrombosis, not elsewhere classified; Z87.891 Personal history of nicotine dependence; Z79.899 Other long term (current) drug therapy; Z79.83 Long term (current) use of bisphosphonates; Z79.4 Long term (current) use of insulin; Z79.01 Long term (current) use of anticoagulants; Z88.0 Allergy status to penicillin; Z88.8 Allergy status to other drugs, medicaments and biological substances
CPT/HCPCS: 36415; 71046; 80048; 80053; 81001; 83036; 83735; 84439; 84443; 84481; 84484; 85025; 85610; 85730; 87635; 92960; 93005; 93306; 93312; 93320; 93325; 94640; 94760; 96365; 96366; 99291

== ENCOUNTER 2020-12-13 00:52 | Inpatient (IN) | payer MEDICARE, OTHER ==
--- NOTE | 2020-12-13 01:01 | ED ---
Altered Mental Status HPI - General Stated Complaint: altered mental status Time Seen by Provider: 12/13/20 00:54 - Related Data Home Medications Medication Instructions Recorded Confirmed DULoxetine HCL [Cymbalta] 60 mg PO DAILY@159908/01/19 11/19/20 Linagliptin/Metformin HCl 1 tab PO BID@0700,199908/01/19 11/19/20 [Jentadueto 2.5 mg-1000 mg Tab] Magnesium Oxide [Mag-Ox] 400 mg PO BID@07,199908/01/19 11/19/20 Omeprazole 20 mg PO DAILY@69908/01/19 11/19/20 Pravastatin Sodium [Pravachol] 40 mg PO HS@199908/01/19 11/19/20 Primidone [Mysoline] 100 mg PO HS@199908/01/19 11/19/20 Apixaban [Eliquis] 2.5 mg PO BID@07,199911/19/20 11/19/20 Cholecalciferol [Vitamin D3 (25 2,000 unit PO DAILY@0611/19/20 11/19/20 Mcg = 1000 Iu)] Loperamide [Imodium] 4 mg PO DAILY PRN 11/19/20 11/19/20 Multivitamins, Thera [Multivitamin 1 tab PO DAILY@59911/19/20 11/19/20 (formulary)] PARoxetine HCL [Paxil] 10 mg PO HS@199911/19/20 11/19/20 Previous Rx's Medication Instructions Recorded Albuterol Nebulized [Ventolin 2.5 mg INHALATION TID ml 11/28/20 Nebulized] Digoxin [Lanoxin] 250 mcg PO DAILY tab 11/28/20 Diltiazem Oral [Cardizem*] 60 mg PO TID tab 11/28/20 Gabapentin [Neurontin] 300 mg PO TID #9 cap 11/28/20 HYDROcodone/APAP 5-325MG [[place] 1 tab PO Q8H PRN #9 tab 11/28/20 5-325] Metoprolol Tartrate [Lopressor] 50 mg PO TID tab 11/28/20 Allergies Allergy/AdvReac Type Severity Reaction Status Date / Time amoxicillin Allergy Unknown Verified 11/19/20 19:20 niacin Allergy Unknown Verified 11/19/20 19:20 [From Niaspan Extended-Release] Penicillins Allergy Unknown Verified 11/19/20 19:20 lactose AdvReac Diarrhea Verified 11/21/20 17:51 Review of Systems ROS Statement: Those systems with pertinent positive or pertinent negative responses have been documented in the HPI. ROS Other: All systems not noted in ROS Statement are negative. Past Medical History Past Medical History: COPD, Diabetes Mellitus, GERD/Reflux, Hyperlipidemia Additional Past Medical History / Comment(s): adult failure to thrive, dry eye History of Any Multi-Drug Resistant Organisms: None Reported Past Surgical History: No Surgical Hx Reported Past Anesthesia/Blood Transfusion Reactions: No Reported Reaction Past Psychological History: Anxiety, Depression Smoking Status: Former smoker Past Alcohol Use History: None Reported Past Drug Use History: None Reported - Past Family History Mother History Unknown: Yes Father History Unknown: Yes Course Vital Signs 12/13/20 00:53 Temperature 97.4 F L Pulse Rate 42 L Respiratory 24 Rate Blood Pressure 117/84 O2 Sat by Pulse 95 Oximetry Medical Decision Making - Lab Data Result diagrams: 12/13/20 01:11 12/13/20 01:11 Lab Results 12/13/20 12/13/20 12/13/20 Range/Units 01:11 01:11 01:11 WBC 12.5 H (3.8-10.6) k/uL RBC 4.46 (3.80-5.40) m/uL Hgb 13.2 (11.4-16.0) gm/dL Hct 43.9 (34.0-46.0) % MCV 98.5 D (80.0-100.0) fL MCH 29.7 (25.0-35.0) pg MCHC 30.1 L (31.0-37.0) g/dL RDW 16.7 H (11.5-15.5) % Plt Count 326 (150-450) k/uL MPV 8.7 Neutrophils % 81 % Lymphocytes % 15 % Monocytes % 2 % Eosinophils % 0 % Basophils % 0 % Neutrophils # 10.2 H (1.3-7.7) k/uL Lymphocytes # 1.9 (1.0-4.8) k/uL Monocytes # 0.3 (0-1.0) k/uL Eosinophils # 0.0 (0-0.7) k/uL Basophils # 0.1 (0-0.2) k/uL Hypochromasia Marked Anisocytosis Slight Macrocytosis Slight PT 11.7 (9.0-12.0) sec INR 1.1 (<1.2) APTT 25.7 (22.0-30.0) sec Sodium (137-145) mmol/L Potassium (3.5-5.1) mmol/L Chloride (98-107) mmol/L Carbon Dioxide (22-30) mmol/L Anion Gap mmol/L BUN (7-17) mg/dL Creatinine (0.52-1.04) mg/dL Est GFR (CKD-EPI)AfAm (>60 ml/min/1.73 sqM) Est GFR (CKD-EPI)NonAf (>60 ml/min/1.73 sqM) Glucose (74-99) mg/dL Plasma Lactic Acid Gurpreet (0.7-2.0) mmol/L Calcium (8.4-10.2) mg/dL Phosphorus (2.5-4.5) mg/dL Magnesium (1.6-2.3) mg/dL Total Bilirubin (0.2-1.3) mg/dL AST (14-36) U/L ALT (4-34) U/L Alkaline Phosphatase (38-126) U/L Ammonia (<30) umol/L Creatine Kinase (30-135) U/L Troponin I (0.000-0.034) ng/mL NT-Pro-B Natriuret Pep pg/mL Total Protein (6.3-8.2) g/dL Albumin (3.5-5.0) g/dL TSH (0.465-4.680) mIU/L Urine Color Light Red Urine Appearance Turbid H (Clear) Urine pH 5.0 (5.0-8.0) Ur Specific [place] 1.015 (1.001-1.035) Urine Protein 2+ H (Negative) Urine Glucose (UA) Negative (Negative) Urine Ketones Negative (Negative) Urine Blood Small H (Negative) Urine Nitrite Negative (Negative) Urine Bilirubin Negative (Negative) Urine Urobilinogen <2.0 (<2.0) mg/dL Ur Leukocyte Esterase Large H (Negative) Urine RBC 8 H (0-5) /hpf Urine WBC >182 H (0-5) /hpf Ur Squamous Epith Cells 22 H (0-4) /hpf Urine Bacteria Many H (None) /hpf Urine Mucus Few H (None) /hpf 12/13/20 12/13/20 12/13/20 Range/Units 01:11 01:11 01:11 WBC (3.8-10.6) k/uL RBC (3.80-5.40) m/uL Hgb (11.4-16.0) gm/dL Hct (34.0-46.0) % MCV (80.0-100.0) fL MCH (25.0-35.0) pg MCHC (31.0-37.0) g/dL RDW (11.5-15.5) % Plt Count (150-450) k/uL MPV Neutrophils % % Lymphocytes % % Monocytes % % Eosinophils % % Basophils % % Neutrophils # (1.3-7.7) k/uL Lymphocytes # (1.0-4.8) k/uL Monocytes # (0-1.0) k/uL Eosinophils # (0-0.7) k/uL Basophils # (0-0.2) k/uL Hypochromasia Anisocytosis Macrocytosis PT (9.0-12.0) sec INR (<1.2) APTT (22.0-30.0) sec Sodium 137 (137-145) mmol/L Potassium 6.2 H* (3.5-5.1) mmol/L Chloride 99 (98-107) mmol/L Carbon Dioxide 8 L* (22-30) mmol/L Anion Gap 30 mmol/L BUN 56 H (7-17) mg/dL Creatinine 5.23 H (0.52-1.04) mg/dL Est GFR (CKD-EPI)AfAm 8 (>60 ml/min/1.73 sqM) Est GFR (CKD-EPI)NonAf 7 (>60 ml/min/1.73 sqM) Glucose 111 H (74-99) mg/dL Plasma Lactic Acid Gurpreet 13.9 H* (0.7-2.0) mmol/L Calcium 9.9 (8.4-10.2) mg/dL Phosphorus 7.1 H (2.5-4.5) mg/dL Magnesium 2.6 H (1.6-2.3) mg/dL Total Bilirubin 0.5 (0.2-1.3) mg/dL AST 23 (14-36) U/L ALT 25 (4-34) U/L Alkaline Phosphatase 66 (38-126) U/L Ammonia 32 H (<30) umol/L Creatine Kinase 23 L (30-135) U/L Troponin I 0.067 H* (0.000-0.034) ng/mL NT-Pro-B Natriuret Pep pg/mL Total Protein 6.5 (6.3-8.2) g/dL Albumin 4.2 (3.5-5.0) g/dL TSH 1.840 (0.465-4.680) mIU/L Urine Color Urine Appearance (Clear) Urine pH (5.0-8.0) Ur Specific [place] (1.001-1.035) Urine Protein (Negative) Urine Glucose (UA) (Negative) Urine Ketones (Negative) Urine Blood (Negative) Urine Nitrite (Negative) Urine Bilirubin (Negative) Urine Urobilinogen (<2.0) mg/dL Ur Leukocyte Esterase (Negative) Urine RBC (0-5) /hpf Urine WBC (0-5) /hpf Ur Squamous Epith Cells (0-4) /hpf Urine Bacteria (None) /hpf Urine Mucus (None) /hpf 12/13/20 Range/Units 01:11 WBC (3.8-10.6) k/uL RBC (3.80-5.40) m/uL Hgb (11.4-16.0) gm/dL Hct (34.0-46.0) % MCV (80.0-100.0) fL MCH (25.0-35.0) pg MCHC (31.0-37.0) g/dL RDW (11.5-15.5) % Plt Count (150-450) k/uL MPV Neutrophils % % Lymphocytes % % Monocytes % % Eosinophils % % Basophils % % Neutrophils # (1.3-7.7) k/uL Lymphocytes # (1.0-4.8) k/uL Monocytes # (0-1.0) k/uL Eosinophils # (0-0.7) k/uL Basophils # (0-0.2) k/uL Hypochromasia Anisocytosis Macrocytosis PT (9.0-12.0) sec INR (<1.2) APTT (22.0-30.0) sec Sodium (137-145) mmol/L Potassium (3.5-5.1) mmol/L Chloride (98-107) mmol/L Carbon Dioxide (22-30) mmol/L Anion Gap mmol/L BUN (7-17) mg/dL Creatinine (0.52-1.04) mg/dL Est GFR (CKD-EPI)AfAm (>60 ml/min/1.73 sqM) Est GFR (CKD-EPI)NonAf (>60 ml/min/1.73 sqM) Glucose (74-99) mg/dL Plasma Lactic Acid Gurpreet (0.7-2.0) mmol/L Calcium (8.4-10.2) mg/dL Phosphorus (2.5-4.5) mg/dL Magnesium (1.6-2.3) mg/dL Total Bilirubin (0.2-1.3) mg/dL AST (14-36) U/L ALT (4-34) U/L Alkaline Phosphatase (38-126) U/L Ammonia (<30) umol/L Creatine Kinase (30-135) U/L Troponin I (0.000-0.034) ng/mL NT-Pro-B Natriuret Pep 83852 pg/mL Total Protein (6.3-8.2) g/dL Albumin (3.5-5.0) g/dL TSH (0.465-4.680) mIU/L Urine Color Urine Appearance (Clear) Urine pH (5.0-8.0) Ur Specific [place] (1.001-1.035) Urine Protein (Negative) Urine Glucose (UA) (Negative) Urine Ketones (Negative) Urine Blood (Negative) Urine Nitrite (Negative) Urine Bilirubin (Negative) Urine Urobilinogen (<2.0) mg/dL Ur Leukocyte Esterase (Negative) Urine RBC (0-5) /hpf Urine WBC (0-5) /hpf Ur Squamous Epith Cells (0-4) /hpf Urine Bacteria (None) /hpf Urine Mucus (None) /hpf - EKG Data -: EKG Interpreted by Me (EG sinus bradycardia 40, OH 194 QRS 92 QTC 409) Disposition Clinical Impression: Dehydration, Bradycardia, ARF (acute renal failure), Altered mental status, Delirium due to general medical condition Disposition: ADMITTED IP TO THIS HOSP Condition: Serious Is patient prescribed a controlled substance at d/c from ED?: No Referrals: Gregorio Bhatia DO [Primary Care Provider] - 1-2 days
[2020-12-13 01:22] LABS: Anisocytosis Slight; Basophils # (A) 0.1 k/uL (0-0.2); Basophils % (A) 0 %; Eosinophils % (A) 0 %; HCT 43.9 % (34.0-46.0); HGB 13.2 gm/dL (11.4-16.0); Hypochromasia Marked; Lymphocytes # (A) 1.9 k/uL (1.0-4.8); Lymphocytes % (A) 15 %; MCH 29.7 pg (25.0-35.0); MCHC 30.1 g/dL (31.0-37.0); Macrocytosis Slight; Mean Platelet Volume 8.7; Monocytes # (A) 0.3 k/uL (0-1.0); Monocytes % (A) 2 %; Neutrophils # (A) 10.2 k/uL (1.3-7.7); Neutrophils % (A) 81 %; Platelet Count 326 k/uL (150-450); RBC 4.46 m/uL (3.80-5.40); RDW 16.7 % (11.5-15.5); WBC 12.5 k/uL (3.8-10.6)
[2020-12-13 01:27] LABS: MCV 98.5 fL (80.0-100.0)
[2020-12-13 01:31] LABS: Albumin 4.2 g/dL (3.5-5.0); Calcium 9.9 mg/dL (8.4-10.2); Magnesium 2.6 mg/dL (1.6-2.3); Phosphorus 7.1 mg/dL (2.5-4.5); Total Bilirubin 0.5 mg/dL (0.2-1.3); Total Protein 6.5 g/dL (6.3-8.2)
[2020-12-13 01:32] LABS: INR 1.1 (<1.2); Partial Thromboplastin Time 25.7 sec (22.0-30.0); Prothrombin Time 11.7 sec (9.0-12.0)
[2020-12-13 01:51] LABS: Appearance,Urine Turbid (Clear); Bacteria,Urine Many /hpf; Bilirubin,Urine Negative (Negative); Blood,Urine Small (Negative); Color,Urine Light Red; Glucose,Urine (UA) Negative (Negative); Ketones,Urine Negative (Negative); Leukocyte Esterase,Urine Large (Negative); Mucus,Urine Few /hpf; Nitrite,Urine Negative (Negative); Protein,Urine 2+ (Negative); RBC,Urine 8 /hpf (0-5); Squamous Epithelial Cell,Urine 22 /hpf (0-4); Urobilinogen,Urine <2.0 mg/dL (<2.0); WBC,Urine >182 /hpf (0-5)
--- NOTE | 2020-12-13 01:58 | XR ---
EXAM: XR Chest, 1 View CLINICAL HISTORY: ITS.REASON XR Reason: Weakness TECHNIQUE: Frontal view of the chest. COMPARISON: 11/23/2020 FINDINGS: Lungs: Mild left basilar atelectasis. Otherwise lungs appear clear. Pleural space: Unremarkable. No pneumothorax. Heart: Unremarkable. No cardiomegaly. Mediastinum: Unremarkable. Bones/joints: Stable right humeral prosthesis. Stable left shoulder degenerative changes. Vasculature: Aortic calcifications. Lymph nodes: Calcified left hilar nodes, likely granulomatous. IMPRESSION: Mild left basilar atelectasis.
[2020-12-13 01:59] LABS: Lactic Acid, Venous 13.9 mmol/L (0.7-2.0); Potassium 6.2 mmol/L (3.5-5.1)
[2020-12-13] MEDS ORDERED: CALCIUM GLUCONATE 2 GM in SODIUM CHLORIDE 0.9% 100 ML IVPB ONE (01:59)
[2020-12-13] MEDS ORDERED: SODIUM BICARB 8.4% 50 ML SYR (1 MEQ/ML) IV STA (01:59)
[2020-12-13] MEDS ORDERED: DEXTROSE 50% SYRINGE 50 ML IVP STA ×2 (01:59→12:17)
[2020-12-13] MEDS ORDERED: INSULIN REGULAR 100 UNIT/ML VIAL IV ONE (01:59)
[2020-12-13 02:14] LABS: Specific Gravity,Urine 1.015 (1.001-1.035)
[2020-12-13] MEDS ORDERED: SODIUM CHLORIDE 0.9% 500 ML 500 ML IV STA (02:33)
[2020-12-13] MEDS ORDERED: SODIUM CHLORIDE 0.9% 1,000 ML IV STA (02:33)
[2020-12-13] MEDS ORDERED: SODIUM CHLORIDE 0.9% 2,000 ML IV STA (02:33)
[2020-12-13] MEDS ORDERED: NALOXONE 0.4 MG/ML 1 ML VIAL IV PRN (03:54)
[2020-12-13 05:01] LABS: Anisocytosis Slight; Basophils # (A) 0.1 k/uL (0-0.2); Basophils % (A) 0 %; Eosinophils % (A) 0 %; HCT 37.9 % (34.0-46.0); HGB 11.5 gm/dL (11.4-16.0); Hypochromasia Marked; Lymphocytes # (A) 1.6 k/uL (1.0-4.8); Lymphocytes % (A) 6 %; MCH 30.3 pg (25.0-35.0); MCHC 30.4 g/dL (31.0-37.0); MCV 99.7 fL (80.0-100.0); Macrocytosis Slight; Monocytes # (A) 1.3 k/uL (0-1.0); Monocytes % (A) 5 %; Neutrophils # (A) 24.1 k/uL (1.3-7.7); Neutrophils % (A) 89 %; Platelet Count 289 k/uL (150-450); RDW 16.8 % (11.5-15.5); WBC 27.2 k/uL (3.8-10.6)
[2020-12-13 05:05] LABS: Albumin 3.4 g/dL (3.5-5.0); Calcium 9.7 mg/dL (8.4-10.2); Magnesium 2.4 mg/dL (1.6-2.3); Phosphorus 6.7 mg/dL (2.5-4.5); Total Bilirubin 0.5 mg/dL (0.2-1.3); Total Protein 5.6 g/dL (6.3-8.2)
[2020-12-13] MEDS ORDERED: FUROSEMIDE 10 MG/ML 4 ML VIAL IV STA (07:47)
--- NOTE | 2020-12-13 08:27 | XR ---
EXAMINATION TYPE: XR chest 1V DATE OF EXAM: 12/13/2020 COMPARISON: 12/13/2020 INDICATION: Short of breath TECHNIQUE: Single frontal view of the chest is obtained. FINDINGS: The heart size is normal. The pulmonary vasculature is normal. Bibasilar infiltrates have developed. Correlate for atypical pneumonia and atelectasis. Atypical pulm onary edema could be considered but is felt to be less likely. Chronic shoulder changes at the left. Prosthesis of the right shoulder. IMPRESSION: 1. Interval development of bibasilar infiltrates. Correlate for atelectasis, pneumonia, atypical pneu monia.
[2020-12-13] MEDS ORDERED: PANTOPRAZOLE 40 MG TABLET PO SCH (10:15)
[2020-12-13] MEDS ORDERED: DEXTROSE 5% IN WATER 1,000 ML with SODIUM BICARB (1 MEQ/ML) 150 ML IV SCH (11:00)
[2020-12-13 12:02] LABS: Glucose,Whole Blood 53 mg/dL (75-99)
[2020-12-13 12:32] LABS: Glucose,Whole Blood 53 mg/dL (75-99)
[2020-12-13 12:51] LABS: Glucose,Whole Blood 126 mg/dL (75-99)
[2020-12-13 12:54] VITALS: BP 142/65; PULSE 69; RESP 34; TEMP 95.3
--- NOTE | 2020-12-13 16:32 | CONS ---
CONSULTATION REASON FOR CONSULT: Renal failure, acidosis. HISTORY OF PRESENT ILLNESS: The patient is an 85-year-old female who was admitted to the hospital with increased weakness, mental status changes. She was found to have a CO2 of 8 and a potassium of 6.2. Patient received IV treatment for the hyperkalemia. Her lactic acid was elevated at 17.9. Currently, patient is awake and there are plans for comfort care measures. Most of the history is obtained from chart review. PAST MEDICAL HISTORY: Significant for COPD, type 2 diabetes, hyperlipidemia, gastroesophageal reflux disease, anxiety, depression. PAST SURGICAL HISTORY: SOCIAL HISTORY: Patient is a former smoker. No history of drug abuse or alcohol abuse. MEDICATIONS: Medications prior to admission included Neurontin, [place], digoxin, Cardizem, Eliquis, Pravachol, magnesium, Jentadueto, Cymbalta, Paxil, metoprolol, [place]. ALLERGIES: Allergies include AMOXICILLIN, NIACIN, PENICILLIN, LACTOSE. REVIEW OF SYSTEMS: As per HPI. PHYSICAL EXAMINATION: Patient is awake, comfortable. She was seen this morning. Blood pressure was 102/50, heart rate 67 per minute, patient is afebrile. The patient answers simple questions. EXAMINATION OF THE HEART: S1, S2. EXAMINATION OF LUNGS: Decreased breath sounds at bases. Basal crackles are heard. Abdomen is soft, nontender. Examination of lower extremities shows edema 1+ bilaterally. CONVERSION WORKER exam shows patient is answering simple questions. She is weak and is not moving much of her extremities. LABS: Labs show sodium 141, potassium 5.0, chloride 103, CO2 is 6. BUN 52, creatinine 5.01. Lactic acid 17.9. UA shows 2+ protein, small blood, WBCs more than 182. ASSESSMENT: 1. Acute kidney injury, acute tubular necrosis, currently oliguric with some urine output. Patient's chest x-ray showed evidence of left basilar atelectasis. She was started on bicarb drip. 2. Severe metabolic acidosis and lactic acidosis, possibly related to metformin versus underlying sepsis. 3. Hyperkalemia associated with acute kidney injury. PLAN: Start bicarb drip. However, if the patient's code status is changed to comfort care, we can discontinue the bicarb drip. The patient is also maintained on antibiotics for urinary tract infection. MMODL / IJN: [id number] /
[2020-12-13] MEDS ORDERED: PRIMIDONE 50 MG TAB PO SCH (20:00)
[2020-12-13] MEDS ORDERED: PRAVASTATIN SODIUM 40 MG TAB PO SCH (20:00)
[2020-12-13] MEDS ORDERED: PARoxetine 10 MG TAB PO SCH (20:00)
[2020-12-13] MEDS ORDERED: DULoxetine HCL 30 MG CAPSULE.DR PO SCH (21:00)
--- NOTE | 2020-12-13 23:06 | P.HPIM ---
History of Present Illness H&P Date: 12/13/20 Chief Complaint: Decreased mentation History of presenting complaint: Patient is a 85-year-old female who follows a Dr. Bhatia at [facility] . with a known history of with a known history of dementia, , diabetes type 2 [id number], hyperlipidemia, COPD, anxiety/depression and previous history of smoking . Patient is brought in from the [facility]. She was noted by the staff to be lethargic and more altered than baseline. Patient had vomited an hour prior to EMS arriving and vomited about 6 days. Given IV fluids. Had some bradycardia was given half a milligram of atropine. Pulse rate controlled to 60s. Patient is receiving some fluids. Upon arrival to the floor patient is more short of breath. Very gurgly in the chest. Poor mentation. After the nurse called me and she spoke to the patient's guardian they agreed to proceed with making the patient comfortable. Review of systems: Patient lethargic and unable to state Past medical history to include: Dementia, diabetes type 2, hyperlipidemia, COPD, anxiety depression, Social history: Currently resident at [facility]. Former smoker. No alcohol. Family history: Patient does not remember On examination: VITAL SIGNS: 97.4, 42, 24, 117/84, 95% on 4 L-upon presentation GENERAL APPEARANCE: Propped up in bed, tired short of breath HEENT: Normal external appearance of nose and ear. Oral cavity dry decreased hearing EYES: Pupils equal. Conjunctiva normal. NECK: JVD not raised. Mass not palpable. RESPIRATORY: Respiratory effort increased, lungs decreased breath sounds. Expiratory crackles CARDIOVASCULAR: Irregular heart sounds. No edema. ABDOMEN: Soft. Liver and spleen not palpable. No tenderness. No mass palpable. LYMPHATICS: No lymph nodes palpable in the neck and axilla PSYCHIATRY: Lethargic, delirious Investigations: White count 27.2 hemoglobin 11.5 platelets 29 potassium 5 bun 52 creatinine 5.01 bicarb 6 Admission testing: White count 12.5 hemoglobin 13.2 potassium 6.2 creatinine 5.23 Lactic acid 13.9, 17.9 Troponin I 0.067 UA positive for leukoesterase, nitrite negative, squamous epithelial cells EKG tracing personally reviewed by me-showing a heart rate of 40 low voltage Chest x-ray film personally reviewed by me-no obvious infiltrate Previous testing: Bun 11 creatinine 0.6 on December 04 Assessment: -Altering change mentation likely due to delirium with metabolic encephalopathy multifactorial -Left atrial thrombus -Moderate mitral and tricuspid regurgitation -Acute COPD exacerbation -Alzheimer's dementia late onset type -GERD -Hyperlipidemia -Diabetes mellitus type 2, on oral hypoglycemic -Anxiety depression otherwise specified -DO NOT RESUSCITATE -Hyperkalemia. .-Improved -Acute severe kidney injury likely ATN and prerenal renal Plan: Patient had received calcium gluconate, dextrose, insulin, IV ceftriaxone. Also received IV Lasix per cardiology. Patient had contributed to daughter. After family was contacted by the nurse they did decide continued make the patient comfortable. The pain to nephrology and oncology consultation had been done. Prognosis guarded. Past Medical History Past Medical History: COPD, Diabetes Mellitus, GERD/Reflux, Hyperlipidemia Additional Past Medical History / Comment(s): adult failure to thrive, dry eye History of Any Multi-Drug Resistant Organisms: None Reported Past Surgical History: No Surgical Hx Reported Past Anesthesia/Blood Transfusion Reactions: No Reported Reaction Past Psychological History: Anxiety, Depression Smoking Status: Former smoker Past Alcohol Use History: None Reported Past Drug Use History: None Reported - Past Family History Mother History Unknown: Yes Father History Unknown: Yes Medications and Allergies Home Medications Medication Instructions Recorded Confirmed Type Linagliptin/Metformin HCl 1 tab PO BID@0700,199908/01/19 12/13/20 History [Jentadueto 2.5 mg-1000 mg Tab] Magnesium Oxide [Mag-Ox] 400 mg PO BID@0700,199908/01/19 12/13/20 History Omeprazole 20 mg PO DAILY 08/01/19 12/13/20 History Pravastatin Sodium [Pravachol] 40 mg PO HS@199908/01/19 12/13/20 History Primidone [Mysoline] 100 mg PO HS@199908/01/19 12/13/20 History Apixaban [Eliquis] 2.5 mg PO BID@0700,199911/19/20 12/13/20 History Loperamide [Imodium] 4 mg PO DAILY PRN 11/19/20 12/13/20 History Multivitamins, Thera [Multivitamin 1 tab PO DAILY 11/19/20 12/13/20 History (formulary)] PARoxetine HCL [Paxil] 10 mg PO HS@199911/19/20 12/13/20 History Diltiazem Oral [Cardizem*] 60 mg PO TID tab 11/28/20 12/13/20 Rx Gabapentin [Neurontin] 300 mg PO TID #9 cap 11/28/20 12/13/20 Rx HYDROcodone/APAP 5-325MG [[place] 1 tab PO Q8H PRN #9 tab 11/28/20 12/13/20 Rx 5-325] Metoprolol Tartrate [Lopressor] 50 mg PO TID tab 11/28/20 12/13/20 Rx Albuterol Nebulized [Ventolin 2.5 mg INHALATION RT-Q8H 12/13/20 12/13/20 History Nebulized] Cholecalciferol [Vitamin D3 (25 50 mcg PO DAILY 12/13/20 12/13/20 History Mcg = 1000 Iu)] DULoxetine HCL [Cymbalta] 30 mg PO HS 12/13/20 12/13/20 History Digoxin [Lanoxin] 250 mcg PO DIRECTED 12/13/20 12/13/20 History Ondansetron HCl [Zofran] 4 mg PO Q8H PRN 12/13/20 12/13/20 History Allergies Allergy/AdvReac Type Severity Reaction Status Date / Time amoxicillin Allergy Unknown Verified 12/13/20 07:03 niacin Allergy Unknown Verified 12/13/20 07:03 [From Niaspan Extended-Release] Penicillins Allergy Unknown Verified 12/13/20 07:03 lactose AdvReac Diarrhea Verified 12/13/20 07:03 Physical Exam Vitals: Vital Signs Temp Pulse Pulse Resp BP BP Pulse Ox 12/13/20 08:00 94.7 F L 67 16 102/50 92 L 12/13/20 06:41 65 20 101/66 95 12/13/20 04:00 58 L 24 111/66 96 12/13/20 03:30 51 L 24 94/45 96 12/13/20 02:30 44 L 18 89/34 98 12/13/20 02:00 38 L 22 115/60 96 12/13/20 00:53 97.4 F L 42 L 24 117/84 95 Intake and Output 12/12/20 12/13/20 12/13/20 22:59 06:59 14:59 Other: Weight 56.926 kg Results CBC & Chem 7: 12/13/20 04:39 12/13/20 04:39 Labs: Abnormal Lab Results - Last 24 Hours (Table) 12/13/20 12/13/20 12/13/20 Range/Units 01:11 01:11 01:11 WBC 12.5 H (3.8-10.6) k/uL MCHC 30.1 L (31.0-37.0) g/dL RDW 16.7 H (11.5-15.5) % Neutrophils # 10.2 H (1.3-7.7) k/uL Monocytes # (0-1.0) k/uL Potassium 6.2 H* (3.5-5.1) mmol/L Carbon Dioxide 8 L* (22-30) mmol/L BUN 56 H (7-17) mg/dL Creatinine 5.23 H (0.52-1.04) mg/dL Glucose 111 H (74-99) mg/dL Plasma Lactic Acid Gurpreet (0.7-2.0) mmol/L Phosphorus 7.1 H (2.5-4.5) mg/dL Magnesium 2.6 H (1.6-2.3) mg/dL Ammonia (<30) umol/L Creatine Kinase 23 L (30-135) U/L Troponin I (0.000-0.034) ng/mL Total Protein (6.3-8.2) g/dL Albumin (3.5-5.0) g/dL Urine Appearance Turbid H (Clear) Urine Protein 2+ H (Negative) Urine Blood Small H (Negative) Ur Leukocyte Esterase Large H (Negative) Urine RBC 8 H (0-5) /hpf Urine WBC >182 H (0-5) /hpf Ur Squamous Epith Cells 22 H (0-4) /hpf Urine Bacteria Many H (None) /hpf Urine Mucus Few H (None) /hpf 12/13/20 12/13/20 12/13/20 Range/Units 01:11 01:11 04:39 WBC 27.2 H (3.8-10.6) k/uL MCHC 30.4 L (31.0-37.0) g/dL RDW 16.8 H (11.5-15.5) % Neutrophils # 24.1 H (1.3-7.7) k/uL Monocytes # 1.3 H (0-1.0) k/uL Potassium (3.5-5.1) mmol/L Carbon Dioxide (22-30) mmol/L BUN (7-17) mg/dL Creatinine (0.52-1.04) mg/dL Glucose (74-99) mg/dL Plasma Lactic Acid Gurpreet 13.9 H* (0.7-2.0) mmol/L Phosphorus (2.5-4.5) mg/dL Magnesium (1.6-2.3) mg/dL Ammonia 32 H (<30) umol/L Creatine Kinase (30-135) U/L Troponin I 0.067 H* (0.000-0.034) ng/mL Total Protein (6.3-8.2) g/dL Albumin (3.5-5.0) g/dL Urine Appearance (Clear) Urine Protein (Negative) Urine Blood (Negative) Ur Leukocyte Esterase (Negative) Urine RBC (0-5) /hpf Urine WBC (0-5) /hpf Ur Squamous Epith Cells (0-4) /hpf Urine Bacteria (None) /hpf Urine Mucus (None) /hpf 12/13/20 12/13/20 12/13/20 Range/Units 04:39 04:39 07:50 WBC (3.8-10.6) k/uL MCHC (31.0-37.0) g/dL RDW (11.5-15.5) % Neutrophils # (1.3-7.7) k/uL Monocytes # (0-1.0) k/uL Potassium (3.5-5.1) mmol/L Carbon Dioxide 6 L* (22-30) mmol/L BUN 52 H (7-17) mg/dL Creatinine 5.01 H (0.52-1.04) mg/dL Glucose (74-99) mg/dL Plasma Lactic Acid Gurpreet 17.9 H* 17.4 H* (0.7-2.0) mmol/L Phosphorus 6.7 H (2.5-4.5) mg/dL Magnesium 2.4 H (1.6-2.3) mg/dL Ammonia (<30) umol/L Creatine Kinase (30-135) U/L Troponin I (0.000-0.034) ng/mL Total Protein 5.6 L (6.3-8.2) g/dL Albumin 3.4 L (3.5-5.0) g/dL Urine Appearance (Clear) Urine Protein (Negative) Urine Blood (Negative) Ur Leukocyte Esterase (Negative) Urine RBC (0-5) /hpf Urine WBC (0-5) /hpf Ur Squamous Epith Cells (0-4) /hpf Urine Bacteria (None) /hpf Urine Mucus (None) /hpf Microbiology - Last 24 Hours (Table) 12/13/20 01:11 Urine Culture - Preliminary Urine,Voided
--- NOTE | 2020-12-13 23:07 | P.DS ---
Providers Date of admission: 12/13/20 03:54 Expected date of discharge: 12/13/20 Attending physician: Shawn Lim Consults: 12/13/20 03:54 Consult Physician Routine Consulting Provider: Dania Young Consult Reason/Comments: arf Do you want consulting provider notified?: Yes Primary care physician: Gregorio [facility] Course: Chief Complaint: Decreased mentation History of presenting complaint: Patient is a 85-year-old female who follows a Dr. Bhatia at [facility] . with a known history of with a known history of dementia, , diabetes type 2 [id number], hyperlipidemia, COPD, anxiety/depression and previous history of smoking . Patient is brought in from the [facility]. She was noted by the staff to be lethargic and more altered than baseline. Patient had vomited an hour prior to EMS arriving and vomited about 6 days. Given IV fluids. Had some bradycardia was given half a milligram of atropine. Pulse rate controlled to 60s. Patient is receiving some fluids. Upon arrival to the floor patient is more short of breath. Very gurgly in the chest. Poor mentation. After the nurse called me and she spoke to the patient's guardian they agreed to proceed with making the patient comfortable. Review of systems: Patient lethargic and unable to state Past medical history to include: Dementia, diabetes type 2, hyperlipidemia, COPD, anxiety depression, Social history: Currently resident at [facility]. Former smoker. No alcohol. Family history: Patient does not remember On examination: VITAL SIGNS: 97.4, 42, 24, 117/84, 95% on 4 L-upon presentation GENERAL APPEARANCE: Propped up in bed, tired short of breath HEENT: Normal external appearance of nose and ear. Oral cavity dry decreased hearing EYES: Pupils equal. Conjunctiva normal. NECK: JVD not raised. Mass not palpable. RESPIRATORY: Respiratory effort increased, lungs decreased breath sounds. Expiratory crackles CARDIOVASCULAR: Irregular heart sounds. No edema. ABDOMEN: Soft. Liver and spleen not palpable. No tenderness. No mass palpable. LYMPHATICS: No lymph nodes palpable in the neck and axilla PSYCHIATRY: Lethargic, delirious Investigations: White count 27.2 hemoglobin 11.5 platelets 29 potassium 5 bun 52 creatinine 5.01 bicarb 6 Admission testing: White count 12.5 hemoglobin 13.2 potassium 6.2 creatinine 5.23 Lactic acid 13.9, 17.9 Troponin I 0.067 UA positive for leukoesterase, nitrite negative, squamous epithelial cells EKG tracing personally reviewed by me-showing a heart rate of 40 low voltage Chest x-ray film personally reviewed by me-no obvious infiltrate Previous testing: Bun 11 creatinine 0.6 on December 04 Assessment: -Altering change mentation likely due to delirium with metabolic encephalopathy multifactorial -Left atrial thrombus -Moderate mitral and tricuspid regurgitation -Acute COPD exacerbation -Alzheimer's dementia late onset type -GERD -Hyperlipidemia -Diabetes mellitus type 2, on oral hypoglycemic -Anxiety depression otherwise specified -DO NOT RESUSCITATE -Hyperkalemia. Secondary to renal failure, improved -Acute severe kidney injury likely ATN and prerenal renal Plan: Patient had received calcium gluconate, dextrose, insulin, IV ceftriaxone. Also received IV Lasix per cardiology. Patient had contributed to daughter. After family was contacted by the nurse they did decide continued make the patient comfortable. The pain to nephrology and oncology consultation had been done. Prognosis poor Patient Condition at Discharge: Serious Plan - Discharge Summary Discharge Rx Participant: No New Discharge Prescriptions: No Action Magnesium Oxide [Mag-Ox] 400 mg PO BID@0700,1999 Linagliptin/Metformin HCl [Jentadueto 2.5 mg-1000 mg Tab] 1 tab PO BID@699,1999 Primidone [Mysoline] 100 mg PO HS@1999 Pravastatin Sodium [Pravachol] 40 mg PO HS@1999 Omeprazole 20 mg PO DAILY Loperamide [Imodium] 4 mg PO DAILY PRN PRN Reason: Diarrhea Apixaban [Eliquis] 2.5 mg PO BID@699,1999 PARoxetine HCL [Paxil] 10 mg PO HS@2000 Multivitamins, Thera [Multivitamin (formulary)] 1 tab PO DAILY Diltiazem Oral [Cardizem*] 60 mg PO TID tab Metoprolol Tartrate [Lopressor] 50 mg PO TID tab Gabapentin [Neurontin] 300 mg PO TID #9 cap HYDROcodone/APAP 5-325MG [[place] 5-325] 1 tab PO Q8H PRN #9 tab PRN Reason: Pain Ondansetron HCl [Zofran] 4 mg PO Q8H PRN PRN Reason: Nausea And Vomiting Albuterol Nebulized [Ventolin Nebulized] 2.5 mg INHALATION RT-Q8H Digoxin [Lanoxin] 250 mcg PO DIRECTED DULoxetine HCL [Cymbalta] 30 mg PO HS Cholecalciferol [Vitamin D3 (25 Mcg = 1000 Iu)] 50 mcg PO DAILY Discharge Medication List Linagliptin/Metformin HCl [Jentadueto 2.5 mg-1000 mg Tab] 1 tab PO BID@0700,199908/01/19 [History] Magnesium Oxide [Mag-Ox] 400 mg PO BID@0700,199908/01/19 [History] Omeprazole 20 mg PO DAILY 08/01/19 [History] Pravastatin Sodium [Pravachol] 40 mg PO HS@199908/01/19 [History] Primidone [Mysoline] 100 mg PO HS@199908/01/19 [History] Apixaban [Eliquis] 2.5 mg PO BID@0700,199911/19/20 [History] Loperamide [Imodium] 4 mg PO DAILY PRN 11/19/20 [History] Multivitamins, Thera [Multivitamin (formulary)] 1 tab PO DAILY 11/19/20 [History] PARoxetine HCL [Paxil] 10 mg PO HS@199911/19/20 [History] Diltiazem Oral [Cardizem*] 60 mg PO TID tab 11/28/20 [Rx] Gabapentin [Neurontin] 300 mg PO TID #9 cap 11/28/20 [Rx] HYDROcodone/APAP 5-325MG [[place] 5-325] 1 tab PO Q8H PRN #9 tab 11/28/20 [Rx] Metoprolol Tartrate [Lopressor] 50 mg PO TID tab 11/28/20 [Rx] Albuterol Nebulized [Ventolin Nebulized] 2.5 mg INHALATION RT-Q8H 12/13/20 [History] Cholecalciferol [Vitamin D3 (25 Mcg = 1000 Iu)] 50 mcg PO DAILY 12/13/20 [History] DULoxetine HCL [Cymbalta] 30 mg PO HS 12/13/20 [History] Digoxin [Lanoxin] 250 mcg PO DIRECTED 12/13/20 [History] Ondansetron HCl [Zofran] 4 mg PO Q8H PRN 12/13/20 [History] Follow up Appointment(s)/Referral(s): Gregorio Bhatia DO [Primary Care Provider] - 1-2 days Discharge Disposition: DC/TRNS IP HOSP W/PLND IP READ
--- NOTE | 2020-12-13 23:12 | P.DS ---
Providers Date of admission: 12/13/20 03:54 Expected date of discharge: 12/13/20 Attending physician: Shawn Lim Consults: 12/13/20 03:54 Consult Physician Routine Consulting Provider: Dania Young Consult Reason/Comments: arf Do you want consulting provider notified?: Yes [facility] Course: Chief Complaint: Decreased mentation History of presenting complaint: Patient is a 85-year-old female who follows a Dr. Bhatia at [facility] . with a known history of with a known history of dementia, , diabetes type 2 [id number], hyperlipidemia, COPD, anxiety/depression and previous history of smoking . Patient is brought in from the [facility]. She was noted by the staff to be lethargic and more altered than baseline. Patient had vomited an hour prior to EMS arriving and vomited about 6 days. Given IV fluids. Had some bradycardia was given half a milligram of atropine. Pulse rate controlled to 60s. Patient is receiving some fluids. Upon arrival to the floor patient is more short of breath. Very gurgly in the chest. Poor mentation. After the nurse called me and she spoke to the patient's guardian they agreed to proceed with making the patient comfortable. Patient bit of with acute delirium metabolic and some neuropathy, acute kidney injury hyperkalemia COPD exacerbation. Patient rapidly went downhill. Guardian was contacted. Hospice was consulted. Patient be made comfort care. It was discussed with the nurse, case checker and the universal grinder operator. Discussion and discharge planning more than 35 minutes Consultation: Nephrology Past medical history to include: Dementia, diabetes type 2, hyperlipidemia, COPD, anxiety depression, Social history: Currently resident at [facility]. Former smoker. No alcohol. Family history: Patient does not remember On examination: VITAL SIGNS: 95.3, 16, 34, 142/65, 98% 4 L Lethargic Respiratory-rate increased, extremity crackles short of breath Investigations: White count 27.2 hemoglobin 11.5 platelets 29 potassium 5 bun 52 creatinine 5.01 bicarb 6 Admission testing: White count 12.5 hemoglobin 13.2 potassium 6.2 creatinine 5.23 Lactic acid 13.9, 17.9 Troponin I 0.067 UA positive for leukoesterase, nitrite negative, squamous epithelial cells EKG tracing personally reviewed by me-showing a heart rate of 40 low voltage Chest x-ray film personally reviewed by me-no obvious infiltrate Previous testing: Bun 11 creatinine 0.6 on December 04 Assessment: -Altering change mentation likely due to delirium with metabolic encephalopathy multifactorial -Left atrial thrombus -Moderate mitral and tricuspid regurgitation -Acute COPD exacerbation -Alzheimer's dementia late onset type -GERD -Hyperlipidemia -Diabetes mellitus type 2, on oral hypoglycemic -Anxiety depression otherwise specified -DO NOT RESUSCITATE -Hyperkalemia. .-Improved -Acute severe kidney injury likely ATN and prerenal renal Disposition: GIP/hospice/comfort care Patient Condition at Discharge: Serious Plan - Discharge Summary Discharge Rx Participant: No New Discharge Prescriptions: No Action Magnesium Oxide [Mag-Ox] 400 mg PO BID@ Linagliptin/Metformin HCl [Jentadueto 2.5 mg-1000 mg Tab] 1 tab PO BID@699,1999 Primidone [Mysoline] 100 mg PO HS@1999 Pravastatin Sodium [Pravachol] 40 mg PO HS@1999 Omeprazole 20 mg PO DAILY Loperamide [Imodium] 4 mg PO DAILY PRN PRN Reason: Diarrhea Apixaban [Eliquis] 2.5 mg PO BID@699,1999 PARoxetine HCL [Paxil] 10 mg PO HS@1999 Multivitamins, Thera [Multivitamin (formulary)] 1 tab PO DAILY Diltiazem Oral [Cardizem*] 60 mg PO TID tab Metoprolol Tartrate [Lopressor] 50 mg PO TID tab Gabapentin [Neurontin] 300 mg PO TID #9 cap HYDROcodone/APAP 5-325MG [[place] 5-325] 1 tab PO Q8H PRN #9 tab PRN Reason: Pain Ondansetron HCl [Zofran] 4 mg PO Q8H PRN PRN Reason: Nausea And Vomiting Albuterol Nebulized [Ventolin Nebulized] 2.5 mg INHALATION RT-Q8H Digoxin [Lanoxin] 250 mcg PO DIRECTED DULoxetine HCL [Cymbalta] 30 mg PO HS Cholecalciferol [Vitamin D3 (25 Mcg = 1000 Iu)] 50 mcg PO DAILY Discharge Medication List Linagliptin/Metformin HCl [Jentadueto 2.5 mg-1000 mg Tab] 1 tab PO BID@699,199908/01/19 [History] Magnesium Oxide [Mag-Ox] 400 mg PO BID@0700,199908/01/19 [History] Omeprazole 20 mg PO DAILY 08/01/19 [History] Pravastatin Sodium [Pravachol] 40 mg PO HS@199908/01/19 [History] Primidone [Mysoline] 100 mg PO HS@199908/01/19 [History] Apixaban [Eliquis] 2.5 mg PO BID@0700,199911/19/20 [History] Loperamide [Imodium] 4 mg PO DAILY PRN 11/19/20 [History] Multivitamins, Thera [Multivitamin (formulary)] 1 tab PO DAILY 11/19/20 [History] PARoxetine HCL [Paxil] 10 mg PO HS@199911/19/20 [History] Diltiazem Oral [Cardizem*] 60 mg PO TID tab 11/28/20 [Rx] Gabapentin [Neurontin] 300 mg PO TID #9 cap 11/28/20 [Rx] HYDROcodone/APAP 5-325MG [[place] 5-325] 1 tab PO Q8H PRN #9 tab 11/28/20 [Rx] Metoprolol Tartrate [Lopressor] 50 mg PO TID tab 11/28/20 [Rx] Albuterol Nebulized [Ventolin Nebulized] 2.5 mg INHALATION RT-Q8H 12/13/20 [History] Cholecalciferol [Vitamin D3 (25 Mcg = 1000 Iu)] 50 mcg PO DAILY 12/13/20 [History] DULoxetine HCL [Cymbalta] 30 mg PO HS 12/13/20 [History] Digoxin [Lanoxin] 250 mcg PO DIRECTED 12/13/20 [History] Ondansetron HCl [Zofran] 4 mg PO Q8H PRN 12/13/20 [History] Follow up Appointment(s)/Referral(s): Gregorio Bhatia DO [Primary Care Provider] - 1-2 days Discharge Disposition: DC/TRNS IP HOSP W/PLND IP READ
--- NOTE | 2020-12-14 12:35 | CDI ---
Documentation Clarification Form Date: 12/14/20 From: Janelle Lyn Phone: If you have a question about this query, please contact Sandy Hunter, Rigger Apprentice at [phone] between 8am and 5pm. Admit Date: 12/13/2020 03:54:00 AM Patient Name: Reyna Cortez Visit Number: [id number] Discharge Date: 12/13/2020 03:57:00 PM ATTENTION: The Clinical Documentation Specialists (CDI) and [facility] Coding Staff appreciate your assistance in clarifying documentation. Please respond to the clarification below the line at the bottom and electronically sign. The CDI & [facility] Coding staff will review the response and follow-up if needed. Please note: Queries are made part of the Legal Health Record. If you have any questions, please contact the author of this message via ITS. Dr. Shawn Lim, The diagnosis of possible underlying sepsis was documented in the consult, but is not noted in subsequent documentation. History/Risk Factors: ATN, metabolic encephalopathy, acidosis, COPD in exacerbation, Type II DM polyneuropathy, Alzheimer's dementia, mural thrombosis, adult failure to thrive, dehydration, hyperkalemia, DNR, comfort care Clinical Indicators: lactic acid-13.9, WBC-12.5, neutrophils -10.2, T-97.4, P- 42, R-30-34, BP-117/84,O2 sat-95 Treatment: IV fluids, IV Rocephin Please clarify if sepsis was: Present/active this admission Ruled out Other, please specify Clinically unable to determine Sepsis, POA MTDD
--- NOTE | 2020-12-14 12:41 | CDI ---
Documentation Clarification Form Date: 12/14/20 From: Janelle Lyn Phone: If you have a question about this query, please contact Sandy Hunter, Anodize Machine Operator at [phone] between 8am and 5pm. Admit Date: 12/13/2020 03:54:00 AM Patient Name: Reyna Cortez Visit Number: [id number] Discharge Date: 12/13/2020 03:57:00 PM ATTENTION: The Clinical Documentation Specialists (CDI) and [facility] Coding Staff appreciate your assistance in clarifying documentation. Please respond to the clarification below the line at the bottom and electronically sign. The CDI & [facility] Coding staff will review the response and follow-up if needed. Please note: Queries are made part of the Legal Health Record. If you have any questions, please contact the author of this message via ITS. Dr. Shawn Lim, Documentation states: Altering change mentation likely due to delirium with metabolic encephalopathy multifactorial. Possible underlying sepsis. History/Risk Factors: ATN, metabolic encephalopathy, acidosis, COPD in exacerbation, Type II DM polyneuropathy, Alzheimer's dementia, mural thrombosis, adult failure to thrive, dehydration, hyperkalemia, DNR, comfort care Clinical indicators: lactic acid-13.9, WBC-12.5, neutrophils -10.2, T-97.4, P- 42, R-30-34, BP-117/84, O2 sat-95 Abnormal: UA-turbid, 2+protein, larger Ur leukocyte esterase, Urine WBC >182, many bacteria; Urine culture-Aerococcus urinae Treatment: IV fluids, IV Rocephin Clinical significance of diagnostic testing and treatment CANNOT be assumed or coded without physician documentation of significance if any. Please clarify what abnormal laboratory signifies: UTI due to aerococcus urinae Unable to determine Other, please specify UTI due to Aerococcus urinae MTDD
== END 2020-12-13 15:57 | disposition hospice, inpatient (51) | DRG 871 ==
LOC: EC 00:52 → 3SCARD 03:54
PROVIDERS: ADMIT Hospitalist; ATTEND Hospitalist
DX: A41.9 Sepsis, unspecified organism (principal); N17.0 Acute kidney failure with tubular necrosis; G93.41 Metabolic encephalopathy; F05 Delirium due to known physiological condition; E87.2 Acidosis; J44.1 Chronic obstructive pulmonary disease with (acute) exacerbation; J98.11 Atelectasis; N39.0 Urinary tract infection, site not specified; E11.42 Type 2 diabetes mellitus with diabetic polyneuropathy; G30.1 Alzheimer's disease with late onset; I51.3 Intracardiac thrombosis, not elsewhere classified; F02.80 Dementia in other diseases classified elsewhere, unspecified severity, without behavioral disturbance, psychotic disturbance, mood disturbance, and anxiety; R62.7 Adult failure to thrive; B96.89 Other specified bacterial agents as the cause of diseases classified elsewhere; E86.0 Dehydration; E87.5 Hyperkalemia; R00.1 Bradycardia, unspecified; Z66 Do not resuscitate; Z51.5 Encounter for palliative care; F41.8 Other specified anxiety disorders; I08.1 Rheumatic disorders of both mitral and tricuspid valves; K21.9 Gastro-esophageal reflux disease without esophagitis; E78.5 Hyperlipidemia, unspecified; H04.129 Dry eye syndrome of unspecified lacrimal gland; Z79.01 Long term (current) use of anticoagulants; Z79.84 Long term (current) use of oral hypoglycemic drugs; Z79.899 Other long term (current) drug therapy; Z87.891 Personal history of nicotine dependence; Z88.0 Allergy status to penicillin; Z88.8 Allergy status to other drugs, medicaments and biological substances; Z91.011 Allergy to milk products
CPT/HCPCS: 36415; 71045; 80053; 81001; 82140; 82550; 83605; 83735; 83880; 84100; 84443; 84484; 85025; 85610; 85730; 87086; 93005; 96361; 96365; 96375; 99285

== ENCOUNTER 2020-12-13 15:40 | Inpatient (IN) | payer MEDICAID ==
[2020-12-13] MEDS ORDERED: ONDANSETRON 4 MG/2 ML VIAL IVP PRN (15:43)
[2020-12-13] MEDS ORDERED: ACETAMINOPHEN SUPPOSITORY 650 MG SUPP RECTAL PRN (15:43)
[2020-12-13] MEDS ORDERED: GLYCOPYRROLATE 0.2 MG/ML 2 ML VIAL IVP PRN (15:43)
[2020-12-13] MEDS ORDERED: SCOPOLAMINE 1.5MG/72HR PATCH TRANSDERM SCH (16:00)
[2020-12-13] MEDS: MORPHINE SULFATE 2 MG/ML SYRINGE IV PRN ×2 (16:34→21:30)
[2020-12-13] MEDS: ATROPINE OPHTH SOLN 1% 5ML BTL SUBLINGUAL PRN ×2 (17:14→20:04)
[2020-12-13] MEDS: LORazepam 2 MG/ML INJ IV PRN (20:04)
[2020-12-13 20:55] VITALS: BP 117/59
[2020-12-14] MEDS: LORazepam 2 MG/ML INJ IV PRN (00:06)
[2020-12-14] MEDS: ATROPINE OPHTH SOLN 1% 5ML BTL SUBLINGUAL PRN ×2 (00:06→22:44)
--- NOTE | 2020-12-14 08:59 | P.HPIM ---
History of Present Illness 85-year-old female is presently inpatient hospice. Patient was evaluated for maria and Dr. browne discharged to hospice services yesterday. Patient is comfortable not in respiratory distress at this time. Patient appears to have advanced dementia presented with the altered mental status secondary to advanced dementia and also found to be bradycardic was given atropine and subsequently patient went into atrial fibrillation patient also has a blood clot in the left atrial up and age. Review of Systems Unable to obtain Past Medical History Past Medical History: COPD, Diabetes Mellitus, GERD/Reflux, Hyperlipidemia Additional Past Medical History / Comment(s): adult failure to thrive, dry eye History of Any Multi-Drug Resistant Organisms: None Reported Past Surgical History: No Surgical Hx Reported Additional Past Surgical History / Comment(s): pt is poor historian, alert with confusion Past Anesthesia/Blood Transfusion Reactions: No Reported Reaction Additional Past Anesthesia/Blood Transfusion Reaction / Comment(s): pt is poor historian, alert with confusion Past Psychological History: Anxiety, Depression Smoking Status: Former smoker Past Alcohol Use History: None Reported Past Drug Use History: None Reported - Past Family History Mother History Unknown: Yes Father History Unknown: Yes Medications and Allergies Home Medications Medication Instructions Recorded Confirmed Type Linagliptin/Metformin HCl 1 tab PO BID@0700,199908/01/19 12/13/20 History [Jentadueto 2.5 mg-1000 mg Tab] Magnesium Oxide [Mag-Ox] 400 mg PO BID@0700,199908/01/19 12/13/20 History Omeprazole 20 mg PO DAILY 08/01/19 12/13/20 History Pravastatin Sodium [Pravachol] 40 mg PO HS@199908/01/19 12/13/20 History Primidone [Mysoline] 100 mg PO HS@199908/01/19 12/13/20 History Apixaban [Eliquis] 2.5 mg PO BID@0700,199911/19/20 12/13/20 History Loperamide [Imodium] 4 mg PO DAILY PRN 11/19/20 12/13/20 History Multivitamins, Thera [Multivitamin 1 tab PO DAILY 11/19/20 12/13/20 History (formulary)] PARoxetine HCL [Paxil] 10 mg PO HS@199911/19/20 12/13/20 History Diltiazem Oral [Cardizem*] 60 mg PO TID tab 11/28/20 12/13/20 Rx Gabapentin [Neurontin] 300 mg PO TID #9 cap 11/28/20 12/13/20 Rx HYDROcodone/APAP 5-325MG [[place] 1 tab PO Q8H PRN #9 tab 11/28/20 12/13/20 Rx 5-325] Metoprolol Tartrate [Lopressor] 50 mg PO TID tab 11/28/20 12/13/20 Rx Albuterol Nebulized [Ventolin 2.5 mg INHALATION RT-Q8H 12/13/20 12/13/20 History Nebulized] Cholecalciferol [Vitamin D3 (25 50 mcg PO DAILY 12/13/20 12/13/20 History Mcg = 1000 Iu)] DULoxetine HCL [Cymbalta] 30 mg PO HS 12/13/20 12/13/20 History Digoxin [Lanoxin] 250 mcg PO DIRECTED 12/13/20 12/13/20 History Ondansetron HCl [Zofran] 4 mg PO Q8H PRN 12/13/20 12/13/20 History Allergies Allergy/AdvReac Type Severity Reaction Status Date / Time amoxicillin Allergy Unknown Verified 12/13/20 07:03 niacin Allergy Unknown Verified 12/13/20 07:03 [From Niaspan Extended-Release] Penicillins Allergy Unknown Verified 12/13/20 07:03 lactose AdvReac Diarrhea Verified 12/13/20 07:03 Physical Exam Vitals: Vital Signs Pulse Resp BP Pulse Ox 12/14/20 05:41 16 12/14/20 03:47 53 L 12 12/14/20 00:00 18 12/13/20 23:04 14 12/13/20 22:11 16 12/13/20 21:33 19 12/13/20 21:11 17 12/13/20 19:50 66 16 117/59 99 Intake and Output 12/13/20 12/14/20 12/14/20 22:59 06:59 14:59 Other: Voiding Method Indwelling Catheter Indwelling Catheter # Voids 0 Weight 62 kg 62 kg PHYSICAL EXAMINATION: GENERAL: Comfortably on the bed HEENT: Pupils restricted CARDIOVASCULAR: S1 and S2 present. PULMONARY: Gurgling sounds EXTREMITIES: No cyanosis, clubbing, or pedal edema. SKIN: No rashes. Assessment and Plan Plan: -Advanced dementia probably probably vascular dementia -COPD -Gastroesophageal reflux disease Hyperlipidemia -Type 2 diabetes mellitus -Atrial fibrillation An: Patient is presently on comfort measures with morphine and Ativan, robinul and scopolamine patch
[2020-12-14] MEDS: MORPHINE SULFATE 2 MG/ML SYRINGE IV PRN ×3 (14:37→22:28)
[2020-12-14 15:29] VITALS: PULSE 41
[2020-12-15 00:15] VITALS: RESP 16
[2020-12-15] MEDS: MORPHINE SULFATE 2 MG/ML SYRINGE IV PRN (02:24)
--- NOTE | 2020-12-15 10:44 | P.PN ---
Subjective 85-year-old female is presently inpatient hospice. Patient was evaluated for conscious and discharged to hospice services yesterday. Patient is comfortable not in respiratory distress at this time. Patient appears to have advanced dementia presented with the altered mental status secondary to advanced dementia and also found to be bradycardic was given atropine and subsequently patient went into atrial fibrillation patient also has a blood clot in the left atrial up and age. 12/15/2020 Patient is lying comfortably in the bed. All inpatient medications were reviewed and appropriate changes in these medications as dictated in the interval history and assessment and plan. Objective - Vital Signs Vital signs: Vital Signs Temp Pulse 41 L 12/14/20 15:27 Resp 16 12/15/20 00:00 BP 117/59 12/13/20 19:50 Pulse Ox 99 12/13/20 19:50 Intake & Output 12/14/20 12/15/20 12/15/20 18:59 06:59 18:59 Output Total 0 Balance 0 Output: Urine 0 - Exam PHYSICAL EXAMINATION: GENERAL: Comfortably on the bed HEENT: Pupils restricted CARDIOVASCULAR: S1 and S2 present. PULMONARY: Gurgling sounds EXTREMITIES: No cyanosis, clubbing, or pedal edema. SKIN: No rashes. Assessment and Plan Plan: -Advanced dementia probably probably vascular dementia -COPD -Gastroesophageal reflux disease Hyperlipidemia -Type 2 diabetes mellitus -Atrial fibrillation An: Patient is presently on comfort measures with morphine and Ativan, robinul and scopolamine patch
--- NOTE | 2020-12-17 12:38 | P.DS ---
Providers Date of admission: 12/13/20 16:09 Attending physician: Shawn Lim Primary care physician: [facility] Course: Patient around midnight patient has advanced dementia and COPD and was on hospice. Plan - Discharge Summary New Discharge Prescriptions: No Action Magnesium Oxide [Mag-Ox] 400 mg PO BID@699,1999 Linagliptin/Metformin HCl [Jentadueto 2.5 mg-1000 mg Tab] 1 tab PO BID@699,1999 Primidone [Mysoline] 100 mg PO HS@1999 Pravastatin Sodium [Pravachol] 40 mg PO HS@1999 Omeprazole 20 mg PO DAILY Loperamide [Imodium] 4 mg PO DAILY PRN PRN Reason: Diarrhea Apixaban [Eliquis] 2.5 mg PO BID@699,1999 PARoxetine HCL [Paxil] 10 mg PO HS@1999 Multivitamins, Thera [Multivitamin (formulary)] 1 tab PO DAILY Diltiazem Oral [Cardizem*] 60 mg PO TID tab Metoprolol Tartrate [Lopressor] 50 mg PO TID tab Gabapentin [Neurontin] 300 mg PO TID #9 cap HYDROcodone/APAP 5-325MG [[place] 5-325] 1 tab PO Q8H PRN #9 tab PRN Reason: Pain Ondansetron HCl [Zofran] 4 mg PO Q8H PRN PRN Reason: Nausea And Vomiting Albuterol Nebulized [Ventolin Nebulized] 2.5 mg INHALATION RT-Q8H Digoxin [Lanoxin] 250 mcg PO DIRECTED DULoxetine HCL [Cymbalta] 30 mg PO HS Cholecalciferol [Vitamin D3 (25 Mcg = 1000 Iu)] 50 mcg PO DAILY Discharge Medication List Linagliptin/Metformin HCl [Jentadueto 2.5 mg-1000 mg Tab] 1 tab PO BID@0700,199908/01/19 [History] Magnesium Oxide [Mag-Ox] 400 mg PO BID@07,199908/01/19 [History] Omeprazole 20 mg PO DAILY 08/01/19 [History] Pravastatin Sodium [Pravachol] 40 mg PO HS@199908/01/19 [History] Primidone [Mysoline] 100 mg PO HS@199908/01/19 [History] Apixaban [Eliquis] 2.5 mg PO BID@0700,199911/19/20 [History] Loperamide [Imodium] 4 mg PO DAILY PRN 11/19/20 [History] Multivitamins, Thera [Multivitamin (formulary)] 1 tab PO DAILY 11/19/20 [History] PARoxetine HCL [Paxil] 10 mg PO HS@199911/19/20 [History] Diltiazem Oral [Cardizem*] 60 mg PO TID tab 11/28/20 [Rx] Gabapentin [Neurontin] 300 mg PO TID #9 cap 11/28/20 [Rx] HYDROcodone/APAP 5-325MG [[place] 5-325] 1 tab PO Q8H PRN #9 tab 11/28/20 [Rx] Metoprolol Tartrate [Lopressor] 50 mg PO TID tab 11/28/20 [Rx] Albuterol Nebulized [Ventolin Nebulized] 2.5 mg INHALATION RT-Q8H 12/13/20 [History] Cholecalciferol [Vitamin D3 (25 Mcg = 1000 Iu)] 50 mcg PO DAILY 12/13/20 [History] DULoxetine HCL [Cymbalta] 30 mg PO HS 12/13/20 [History] Digoxin [Lanoxin] 250 mcg PO DIRECTED 12/13/20 [History] Ondansetron HCl [Zofran] 4 mg PO Q8H PRN 12/13/20 [History] Discharge Disposition: - Preliminary Cause of Preliminary Cause of : Vascular dementia
== END 2020-12-15 12:16 | disposition expired | DRG 951 ==
LOC: 3SCARD 16:09
PROVIDERS: ADMIT Hospitalist; ATTEND Hospitalist
DX: Z51.5 Encounter for palliative care (principal); I51.3 Intracardiac thrombosis, not elsewhere classified; R62.7 Adult failure to thrive; F01.50 Vascular dementia, unspecified severity, without behavioral disturbance, psychotic disturbance, mood disturbance, and anxiety; E11.9 Type 2 diabetes mellitus without complications; I48.91 Unspecified atrial fibrillation; J44.9 Chronic obstructive pulmonary disease, unspecified; Z66 Do not resuscitate; K21.9 Gastro-esophageal reflux disease without esophagitis; E78.5 Hyperlipidemia, unspecified; R00.1 Bradycardia, unspecified; R41.82 Altered mental status, unspecified; R68.89 Other general symptoms and signs; F32.9 Major depressive disorder, single episode, unspecified; F41.9 Anxiety disorder, unspecified; Z87.891 Personal history of nicotine dependence; Z79.899 Other long term (current) drug therapy; Z79.01 Long term (current) use of anticoagulants; Z88.0 Allergy status to penicillin; Z88.8 Allergy status to other drugs, medicaments and biological substances